=== PATIENT | male | born 1970 ===

== ENCOUNTER 2017-02-17 11:28 | Inpatient (IN) | payer MEDICAID ==
[2017-02-17 11:44] VITALS: BMI 26.6
[2017-02-17 12:51] LABS: BASO # 0.1 K/uL (0.0-0.2); BASO % 0.5 % (0.0-2.0); EOS # 0.1 K/uL (0.0-0.7); EOS % 0.7 % (0.0-4.0); LYMPH % 7.1 % (20.0-40.0); MEAN CELL VOLUME 87.9 fL (80.0-94.0); MEAN CORPUSCULAR HEMOGLOBIN 29.5 pg (27.0-31.0); MEAN CORPUSCULAR HGB CONC 33.5 g/dL (33.0-37.0); MEAN PLATELET VOLUME 7.7 fL (7.2-11.7); MONO # 1.1 K/uL (0.0-0.8); MONO % 7.9 % (0.0-10.0); PLATELET COUNT 245 K/uL (130-400); RED CELL DISTRIBUTION WIDTH 14.9 % (11.5-14.5); WHITE BLOOD COUNT 14.5 K/uL (4.8-10.8)
--- NOTE | 2017-02-17 12:57 | RAD ---
PROCEDURE: CHEST RADIOGRAPH, 1 VIEW HISTORY: chest pain COMPARISON: Comparison made with radiograph of the chest dated 06/22/2016. FINDINGS: LUNGS: Mild right basilar atelectasis. Developing lower lobe infiltrate could be excluded followup radiographs. PLEURA: No pneumothorax or pleural fluid seen. CARDIOVASCULAR: Normal. OSSEOUS STRUCTURES: No significant abnormalities. VISUALIZED UPPER ABDOMEN: Normal. OTHER FINDINGS: None. IMPRESSION: Mild right basilar atelectasis. Developing infiltrate could be excluded with followup radiographs.
[2017-02-17 12:58] LABS: RBC URINE 2 /hpf (0-3); URINE BILIRUBIN NEGATIVE (NEGATIVE); URINE BLOOD NEGATIVE (NEGATIVE); URINE COLOR Yellow (YELLOW); URINE GLUCOSE (UA) 1+ mg/dL (Normal); URINE KETONE TRACE mg/dL (NEGATIVE); URINE LEUKOCYTE ESTERASE NEG Leu/uL (Negative); WBC URINE < 1 /hpf (0-5)
[2017-02-17 13:00] LABS: URINE PROTEIN 1+ mg/dL (NEGATIVE)
[2017-02-17 13:00] LABS: CHLORIDE 100 mmol/L (98-107)
[2017-02-17 13:01] LABS: POTASSIUM 3.8 mmol/L (3.6-5.2); SODIUM 140 mmol/L (132-148)
[2017-02-17 13:03] LABS: AST/SGOT 154 U/L (17-59); CARBON DIOXIDE 28 mmol/L (22-30); GFR AFRICAN-AMERICAN > 60
[2017-02-17 13:04] LABS: ALB/GLOB RATIO 1.1 (1.0-2.1); ALKALINE PHOSPHATASE 93 U/L (38-126); ALT/SGPT 197 U/L (21-72); BLOOD UREA NITROGEN 8 mg/dL (9-20); CALCIUM 8.5 mg/dl (8.6-10.4); GLUCOSE,RANDOM 155 mg/dL (75-110); TOTAL PROTEIN 7.3 g/dL (6.3-8.3)
[2017-02-17 13:12] LABS: NEUTROPHIL 81 % (50-75); TOTAL CELLS COUNTED 100
[2017-02-17] MEDS ORDERED: Iodixanol 320 MG/ML 100 ML BOTTLE IV ONE (13:49)
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
--- NOTE | 2017-02-17 13:57 | VASCLAB ---
PROCEDURE: Right Lower Extremity Venous Duplex Exam. HISTORY: r/o DVT Right lef edema, pain. PRIORS: None. TECHNIQUE: Right common femoral, femoral, popliteal and posterior tibial, peroneal and great saphenous veins were evaluated. Flow was assessed with color Doppler, compressibility, assessment of phasic flow and augmentation response. Report prepared by Samuel Martinez RVT FINDINGS: RIGHT: 1. Common Femoral Vein: 1.1. Compressibility - Fully compressible: Thrombus - None: Flow - Phasic: Augmentation -Normal: Reflux - . 2. Femoral Vein: 2.1. Compressibility - Fully compressible: Thrombus - None: Flow - Phasic: Augmentation -Normal: Reflux - . 3. Popliteal Vein: 3.1. Compressibility - Fully compressible: Thrombus - None: Flow - Phasic: Augmentation -Normal: Reflux - . 4. Posterior Tibial Vein: 4.1. Compressibility - Incompressible: Thrombus - Acute: Flow - : Augmentation -: Reflux - . 5. Peroneal Vein: 5.1. Compressibility - Fully compressible: Thrombus - None: Flow - : Augmentation -: Reflux - . 6. Great Saphenous Vein: 6.1. Compressibility - Fully compressible: Thrombus -None: Flow - : Augmentation - : Reflux - . OTHER FINDINGS: IMPRESSION: One of the posterior tibial veins around the mid calf areas was occluded with echolucent THROMBUS. There was evidence of infrapopliteal deep vein thrombosis of the right lower extremity. Normal venous flow noted in the left common femoral vein.
--- NOTE | 2017-02-17 14:54 | CT ---
PROCEDURE: CTA chest dated 02/17/2017. HISTORY: Shortness of breath and bilateral leg swelling . Rule out PE. COMPARISON: Comparison made with chest radiograph obtained earlier same day on 02/17/2017 TECHNIQUE: Technique: : CT angiography of the chest performed in standard fashion employing CTA protocol during arterial phase of enhancement following intravenous injection of approximately 100 cc of Visipaque 320 contrast. . . . Additional coronal and sagittal reformats/MIP images performed. Radiation dose: Total exam DLP = 530.77 mGy-cm. This CT exam was performed using one or more of the following dose reduction techniques: Automated exposure control, adjustment of the mA and/or kV according to patient size, and/or use of iterative reconstruction technique. Findings: The the visualized on pulmonary trunk, right and left main, lobar, segmental branches of the pulmonary arteries are relatively well opacified with no definitive filling defects seen to suggest acute central pulmonary embolus. . There does appear to be small filling defects within distal segmental and subsegmental branches of the right lower lobe pulmonary artery suggesting the small distal pulmonary emboli. Pulmonary trunk measures approximately 3.4 cm. Ascending thoracic aorta measures approximately 3.44 cm and descending thoracic aorta measures approximately 23.0 cm. . Heart size within range of normal. No significant pericardial effusion is identified. There are a few small nonspecific mediastinal lymph nodes, the largest in the subcarinal region measuring approximately 15 mm. No significant hilar adenopathy. The the trachea and mainstem bronchi are widely patent with no endoluminal- endobronchial masses. Small hiatal hernia with minimal wall thickening of the distal esophagus. The thyroid gland appears grossly unremarkable so far as can be seen. Multiple small nonspecific bilateral axillary lymph nodes are present. Evaluation of the lung parenchyma reveals vague atelectasis and or scarring changes in the medial aspect right middle lobe. There is linear scarring also seen along the anterior inferior surface of the right upper lobe. Multiple vaguely somewhat translucent nodular opacities scattered throughout the upper and and middle lobes noted as well nonspecific. Lung webb are otherwise clear. No effusion or pneumothorax. The liver exhibits moderate to fairly significant diffuse fatty hepatic infiltration. Remaining visualized upper abdominal structures unremarkable. Minor chronic appearing anterior stature loss at least 2 mid thoracic of segments. Minor multilevel degenerative spondylosis of the thoracic spine Impression: Findings suggesting small pulmonary emboli within distal segmental and subsegmental branches right lower lobe pulmonary artery. . There are multiple small vague nodular translucent opacity seen scattered throughout the right upper and middle lobes. Mild atelectasis and or scarring right middle lobe lies. There is also mild linear scarring inferior anterior aspect right upper lobe extending to the pleural surface. Moderate to significant fatty hepatic infiltration. Note these findings were discussed with Dr. Hong approximately 2:45 p.m. with written down and read back verification.
[2017-02-17] MEDS ORDERED: Azithromycin 500 MG in Sodium Chloride 0.9% 250 ML IVPB STA (14:59)
[2017-02-17] MEDS ORDERED: Enoxaparin 80 mg Syringe SC STA (15:07)
[2017-02-17] MEDS ORDERED: Azithromycin 500mg/250ML NS 250 ML IVPB ONE (15:29)
[2017-02-17] MEDS ORDERED: Enoxaparin 80 mg Syringe ONE (15:29)
[2017-02-17] MEDS ORDERED: cefTRIAXone IV 1 gm in Dextros 50 ML IVPB ONE (15:29)
[2017-02-17] MEDS ORDERED: Morphine 4 MG/ML VIAL ONE (15:42)
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
[2017-02-17] MEDS ORDERED: DiphenhydrAMINE 50 mg/ml Inj IVP STA (16:29)
[2017-02-17] MEDS ORDERED: DiphenhydrAMINE 50 mg/ml Inj ONE (16:34)
[2017-02-17 17:09] VITALS: RESP 20
--- NOTE | 2017-02-17 17:25 | CT ---
PROCEDURE: CT scan brain dated 02/17/2017. HISTORY: History of subdural hematoma. COMPARISON: Comparison made with prior CT scan of the brain dated 03/29/2016 and another dated 03/07/2015. TECHNIQUE: Axial computed tomography images were obtained through the head/brain without intravenous contrast. Radiation dose: Total exam DLP 854.9MGy-cm. This CT exam was performed using one or more of the following dose reduction techniques: Automated exposure control, adjustment of the mA and/or kV according to patient size, and/or use of iterative reconstruction technique. FINDINGS: HEMORRHAGE: Re- demonstrated is a the small hyperdense rounded focus in the right frontal subcortical white matter measuring approximately 5.7 5 mm. This focus may represent a small cavernous hemangioma. . Followup pre and post-contrast MRI of the brain recommended for confirmation. . There is curvilinear hyperdense subdural crescentic focus that most likely represents chronic subdural granulation tissue subjacent to a large craniectomy defect with overlying cranioplasty material in the right temporal parietal region/ cranioplasty. These changes are new since prior study. BRAIN: Suspect mild chronic periventricular white matter ischemic changes. . Focal area of encephalomalacia left posterior perisylvian region unchanged. . Moderate generalized volume loss. VENTRICLES: As mentioned above, there is generalized volume loss with ventricular enlargement however no evidence of obstructive hydrocephalus. CALVARIUM: There are no acute calvarial fractures. PARANASAL SINUSES: Mild mucosal thickening present within both maxillary antra left greater than right with mild to moderate mucosal thickening in the ethmoid air complex extending slightly into the inferior aspect of the frontal sinus. Minimal mucosal thickening sphenoid sinus. MASTOID AIR CELLS: Mastoid air complexes well-developed and currently well-aerated. OTHER FINDINGS: None. IMPRESSION: No acute intracranial hemorrhage. Large right temporal parietal craniectomy defect with cranioplasty material and subjacent subdural granulation tissue. Stable partially cystic encephalomalacia left posterior perisylvian region. Small hyperdense focus right frontal subcortical region consistent with a small cavernoma. Recommend pre and post-contrast MRI of the brain for confirmation.
[2017-02-17] MEDS: Albuterol-Ipratrop 3 mg / 0.5 (3 ml) UD INH SCH (20:39)
[2017-02-17 21:06] LABS: INR 1.1
[2017-02-18] MEDS: Albuterol-Ipratrop 3 mg / 0.5 (3 ml) UD INH SCH ×5 (01:48→19:37)
[2017-02-18 06:47] LABS: INR 1.1
[2017-02-18 06:53] LABS: CHLORIDE 95 mmol/L (98-107); POTASSIUM 2.9 mmol/L (3.6-5.2); SODIUM 134 mmol/L (132-148)
[2017-02-18 06:55] LABS: CHOLESTEROL 146 mg/dL (0-199); GFR AFRICAN-AMERICAN > 60
[2017-02-18 06:56] LABS: ALKALINE PHOSPHATASE 85 U/L (38-126); ALT/SGPT 141 U/L (21-72); AST/SGOT 79 U/L (17-59); BILIRUBIN,TOTAL 1.3 mg/dL (0.2-1.3); BLOOD UREA NITROGEN 8 mg/dL (9-20); CARBON DIOXIDE 30 mmol/L (22-30); GLUCOSE,RANDOM 108 mg/dL (75-110); TOTAL PROTEIN 6.8 g/dL (6.3-8.3)
[2017-02-18 07:10] LABS: BASO % 0.4 % (0.0-2.0); EOS # 0.2 K/uL (0.0-0.7); EOS % 1.6 % (0.0-4.0); HEMATOCRIT 40.4 % (35.0-51.0); LYMPH # 1.2 K/uL (1.0-4.3); LYMPH % 10.4 % (20.0-40.0); MEAN CELL VOLUME 87.7 fL (80.0-94.0); MEAN CORPUSCULAR HEMOGLOBIN 29.1 pg (27.0-31.0); MEAN CORPUSCULAR HGB CONC 33.2 g/dL (33.0-37.0); MONO # 0.9 K/uL (0.0-0.8); MONO % 7.7 % (0.0-10.0); RED CELL DISTRIBUTION WIDTH 14.6 % (11.5-14.5); T4 6.61 ug/dL (5.5-11.0); WHITE BLOOD COUNT 11.2 K/uL (4.8-10.8)
[2017-02-18 07:24] LABS: THYROID STIMULATING HORMONE 0.77 mIU/L (0.46-4.68)
--- NOTE | 2017-02-18 08:42 | CP.PCM.PN ---
<Sekou Partida - Last Filed: 02/18/17 11:30> Subjective - Date & Time of Evaluation Date of Evaluation: 02/18/17 Time of Evaluation: 08:50 - Subjective Subjective: Medicine Note- Hospitalist Service Patient was seen and examined at bedside. Patient currently reports that he still has some chest pain, bilaterally, lower chest. He also states he has some pain behind his right knee. He says he has difficulty breathing without the nasal cannula. No events overnight per nursing. Objective - Vital Signs/Intake and Output Vital Signs (last 24 hours): Temp Pulse Resp BP Pulse Ox 98.2 F 78 20 109/71 98 02/18/17 07:00 02/18/17 08:00 02/18/17 07:00 02/18/17 07:00 02/18/17 07:00 Intake and Output: 02/18/17 02/18/17 06:59 18:59 Intake Total 210 Output Total 950 Balance -740 - Medications Medications: Current Medications Albuterol/Ipratropium (Duoneb 3 Mg/0.5 Mg (3 Ml) Ud) 3 ml INH RQ6 [facility] Last Admin: 02/18/17 08:02 Dose: 3 ml Citalopram Hydrobromide (Celexa) 40 mg PO DAILY [facility] Enoxaparin Sodium (Lovenox) 80 mg SC Q12 [facility] Azithromycin 500 mg/ Sodium (Chloride) 250 mls @ 250 mls/hr IVPB DAILY [facility] Ceftriaxone Sodium 1 gm/ (Sodium Chloride) 100 mls @ 100 mls/hr IVPB Q12H [facility] Last Admin: 02/18/17 03:16 Dose: 100 mls/hr Morphine Sulfate (Morphine) 2 mg IVP Q4H PRN PRN Reason: Pain, moderate (4-7) Ondansetron HCl (Zofran Inj) 4 mg IVP Q6 PRN PRN Reason: Nausea/Vomiting Pantoprazole Sodium (Protonix Ec Tab) 40 mg PO DAILY [facility] Pneumococcal Polyvalent Vaccine (Pneumovax 23 Vaccine) 0.5 ml IM .ONCE ONE Stop: 02/18/17 10:01 Risperidone (Risperdal Tab) 3 mg PO HS [facility] Last Admin: 02/17/17 21:43 Dose: 3 mg - Labs Labs: 02/18/17 06:28 02/18/17 06:28 PT 12.1 SECONDS (9.7-12.2) 02/18/17 06:28 INR 1.1 02/18/17 06:28 APTT 28 SECONDS (21-34) D 02/18/17 06:28 - Constitutional Appears: Non-toxic, No Acute Distress - Head Exam Head Exam: ATRAUMATIC, NORMAL INSPECTION, NORMOCEPHALIC - Eye Exam Eye Exam: Normal appearance Pupil Exam: NORMAL ACCOMODATION, PERRL - ENT Exam ENT Exam: Mucous Membranes Moist - Respiratory Exam Respiratory Exam: Clear to Ausculation Bilateral, NORMAL BREATHING PATTERN. absent: Prolonged Expiratory Phase, Rales, Rhonchi, Wheezes - Cardiovascular Exam Cardiovascular Exam: REGULAR RHYTHM, +S1, +S2 - GI/Abdominal Exam GI & Abdominal Exam: Soft, Normal Bowel Sounds. absent: Tenderness, Diminished Bowel Sounds, Hypoactive Bowel Sounds - Neurological Exam Neurological Exam: Alert, Awake, Oriented x3 - Psychiatric Exam Psychiatric exam: Normal Affect, Normal Mood - Skin Skin Exam: Dry, Intact, Normal Color, Warm Assessment and Plan - Assessment and Plan (Free Text) Assessment: 1. Chest pain Admit to telemetry PE and Atelectasis vs Pneumonia Heme/Onc consult, Dr. Bruner, help appreciated Pulm consult, Dr. Coleman, help appreciated EKG: NSR @ 88 bpm LE doppler: posterior tibial vein occludded with echolucent thrombus. Evidence of infrapopliteal DVT in R lower extremity (see full report) CT Head- 02/18/17- No acute intracranial hemorrhage. Large right temporal parietal craniectomy defect with cranioplasty. Stable partially cystic encephalomalacia left posterior perisylvian region. Small hyperdense focus right frontal subcortical region consistent with a small cavernoma. CT Chest angio: suggesting small pulmonary emboli within distal segmental and subsegmental branches of RLL and RML pulmonary artery (see full report). Rocephin 1 gm IVPB Q12H Azithromycin 500 mg IVPB daily Morphine 2 mg IVP Q4H PRN PT/PTT normal Lipid Panel normal TSH, T4 normal HgbA1C pending 2. Dyspnea PE and Atelectasis vs Pneumonia EKG: NSR @ 88 bpm WBC- 11.2 Rocephin 1 gm IVPB Q12H Azithromycin 500 mg IVPB daily Duonebs 3 mL INH RQ6 Continue Lovenox 80mg SC Q12h LE doppler: posterior tibial vein occludded with echolucent thrombus. Evidence of infrapopliteal DVT in R lower extremity (see full report) CT Chest angio: suggesting small pulmonary emboli within distal segmental and subsegmental branches of RLL and RML pulmonary artery (see full report). CT Head- 02/18/17- No acute intracranial hemorrhage. Large right temporal parietal craniectomy defect with cranioplasty. Stable partially cystic encephalomalacia left posterior perisylvian region. Small hyperdense focus right frontal subcortical region consistent with a small cavernoma. Heme/Onc consult, Dr. Bruner, help appreciated Pulm consult, Dr. Coleman, help appreciated 3. History of Subdural hematoma CT Head- 02/18/17- No acute intracranial hemorrhage. Large right temporal parietal craniectomy defect with cranioplasty. Stable partially cystic encephalomalacia left posterior perisylvian region. Small hyperdense focus right frontal subcortical region consistent with a small cavernoma. 4. Asthma Duonebs 3 mL INH RQ6 5. Schizoaffective disorder Celexa 40 mg PO daily Risperidal 3 mg PO HS 6. DVT LE doppler: posterior tibial vein occludded with echolucent thrombus. Evidence of infrapopliteal DVT in R lower extremity (see full report) Continue Lovenox 80mg SC Q12h 7. Transaminitis AST/ALT trending down- 79/141 8. Prophylactic Measures Lovenox 80mg SC Q12h GI:Protonix 40 mg PO daily Zofran 4 mg IVP Q6H PRN <Maxx Aceves M - Last Filed: 02/18/17 15:27> Objective - Vital Signs/Intake and Output Vital Signs (last 24 hours): Temp Pulse Resp BP Pulse Ox 98.2 F 78 20 109/71 98 02/18/17 07:00 02/18/17 08:00 02/18/17 07:00 02/18/17 07:00 02/18/17 07:00 Intake and Output: 02/18/17 02/18/17 06:59 18:59 Intake Total 210 600 Output Total 950 Balance -740 600 - Medications Medications: Current Medications Albuterol/Ipratropium (Duoneb 3 Mg/0.5 Mg (3 Ml) Ud) 3 ml INH RQ6 [facility] Last Admin: 02/18/17 13:49 Dose: 3 ml Citalopram Hydrobromide (Celexa) 40 mg PO DAILY [facility] Last Admin: 02/18/17 09:51 Dose: 40 mg Enoxaparin Sodium (Lovenox) 80 mg SC Q12 [facility] Last Admin: 02/18/17 09:49 Dose: 80 mg Azithromycin 500 mg/ Sodium (Chloride) 250 mls @ 250 mls/hr IVPB DAILY [facility] Last Admin: 02/18/17 09:50 Dose: 250 mls/hr Ceftriaxone Sodium 1 gm/ (Sodium Chloride) 100 mls @ 100 mls/hr IVPB Q12H [facility] Last Admin: 02/18/17 14:04 Dose: 100 mls/hr Morphine Sulfate (Morphine) 2 mg IVP Q4H PRN PRN Reason: Pain, moderate (4-7) Last Admin: 02/18/17 08:38 Dose: 2 mg Ondansetron HCl (Zofran Inj) 4 mg IVP Q6 PRN PRN Reason: Nausea/Vomiting Pantoprazole Sodium (Protonix Ec Tab) 40 mg PO DAILY [facility] Last Admin: 02/18/17 09:51 Dose: 40 mg Risperidone (Risperdal Tab) 3 mg PO HS [facility] Last Admin: 02/17/17 21:43 Dose: 3 mg - Labs Labs: 02/18/17 06:28 02/18/17 06:28 PT 12.1 SECONDS (9.7-12.2) 02/18/17 06:28 INR 1.1 02/18/17 06:28 APTT 28 SECONDS (21-34) D 02/18/17 06:28 Attending/Attestation - Attestation I have personally seen and examined this patient.: Yes I have fully participated in the care of the patient.: Yes I have reviewed all pertinent clinical information, including history, physical exam and plan: Yes Notes (Text): 02/18/17 15:27 Patient was seen and examined at bedside today Patient stated that he is feeling better next is still complains of some chest pain. We will continue therapeutic anticoagulation with Lovenox Hematology evaluation pending Continue treatment for pneumonia with IV antibiotics Pulmonary evaluation in progress I agree with the above history and physical and assessment/plan but the resident
[2017-02-18] MEDS ORDERED: Potassium Chloride 20 mEq ER Tab PO ONE ×2 (08:57→14:00)
[2017-02-18 09:26] LABS: MAGNESIUM 1.3 mg/dL (1.6-2.3); PHOSPHOROUS 3.4 mg/dL (2.5-4.5)
[2017-02-18] MEDS: Enoxaparin 80 mg Syringe SC SCH ×2 (09:49→21:55)
[2017-02-18] MEDS: Azithromycin 500 MG in Sodium Chloride 0.9% 250 ML IVPB SCH (09:50)
[2017-02-18] MEDS: Pantoprazole 40 mg EC Tab PO SCH (09:51)
[2017-02-18] MEDS ORDERED: Pneumococcal 23-Valent Vaccine IM ONE (10:00)
--- NOTE | 2017-02-18 17:20 | CP.PCM.CON ---
History of Present Illness - History of Present Illness History of Present Illness: Hematology Consult Referred by Dr. Aceves for acute DVT/PE HPI- Mr Clark is 46 y/o M with h/o bipolar disorder, schizoaffective disorder, depression, alcohol abuse, smoker (around 10 cigs/day), asthma/ bronchitis, traumatic subdural hematoma in 2016 requiring craniotomy and subsequent revision. He was admitted with 1 week history of right leg pain and swelling and chest pain with associated shortness of breath and cough. US doppler showed acute DVT in right posterior tibial vein. CT chest angiogram also showed small PE in subsegmental branches of right lower lobe pulmonary artery. It also showed some scarring in lungs and vague transluscent, nodular opacities in b/l upper and middle lobes (non specific). He was started on anticoagulation with therapeutic Lovenox. He does not recall any specific event triggering this, though he is not one of the best historians. He denies any recent travel, hospitalization or prolonged immbolization. No h/o OTC supplements. Review of his blood work showed slight leucocytosis on admission that is improving. His liver enzymes were elevated on admission (coming down now). CT chest showed fatty liver. His leg swelling has improved now, though he still gets occasional chest pain. Denies any bleeding. His appetite has been good and weight is stable. Denies nausea, abdominal pain or blood in stools. Review of Systems - Review of Systems All systems: reviewed and no additional remarkable complaints except Review of Systems: as listed in HPI Past Patient History - Infectious Disease Hx of Infectious Diseases: None - Past Medical History & Family History Past Medical History?: Yes - Past Social History Smoking Status: Light Smoker < 10 Cigarettes Daily - CARDIAC Hx Hypertension: Yes - PULMONARY Hx Asthma: Yes - NEUROLOGICAL Hx Alzheimer's Disease: No Hx Seizures: No - HEENT Hx HEENT Problems: Yes - RENAL Hx Chronic Kidney Disease: No - ENDOCRINE/METABOLIC Hx Endocrine Disorders: No - HEMATOLOGICAL/ONCOLOGICAL Hx Blood Disorders: No Hx Human Immunodeficiency Virus (HIV): No - INTEGUMENTARY Hx Dermatological Problems: No - MUSCULOSKELETAL/RHEUMATOLOGICAL Hx Fractures: Yes - GASTROINTESTINAL Hx Gastrointestinal Disorders: No - GENITOURINARY/GYNECOLOGICAL Hx Genitourinary Disorders: No Hx Sexually Transmitted Disorders: No - PSYCHIATRIC Hx Bipolar Disorder: Yes Hx Depression: Yes Hx Schizophrenia: Yes Hx Substance Use: Yes - SURGICAL HISTORY Hx Surgeries: Yes Hx Orthopedic Surgery: Yes (left arm) Other/Comment: nose surgery - ANESTHESIA Hx Anesthesia: Yes Hx Anesthesia Reactions: No Meds Allergies/Adverse Reactions: Allergies Allergy/AdvReac Type Severity Reaction Status Date / Time No Known Allergies Allergy Verified 06/20/16 20:10 - Medications Medications: Current Medications Albuterol/Ipratropium (Duoneb 3 Mg/0.5 Mg (3 Ml) Ud) 3 ml INH RQ6 [facility] Last Admin: 02/18/17 13:49 Dose: 3 ml Citalopram Hydrobromide (Celexa) 40 mg PO DAILY [facility] Last Admin: 02/18/17 09:51 Dose: 40 mg Enoxaparin Sodium (Lovenox) 80 mg SC Q12 [facility] Last Admin: 02/18/17 09:49 Dose: 80 mg Azithromycin 500 mg/ Sodium (Chloride) 250 mls @ 250 mls/hr IVPB DAILY [facility] Last Admin: 02/18/17 09:50 Dose: 250 mls/hr Ceftriaxone Sodium 1 gm/ (Sodium Chloride) 100 mls @ 100 mls/hr IVPB Q12H [facility] Last Admin: 02/18/17 14:04 Dose: 100 mls/hr Morphine Sulfate (Morphine) 2 mg IVP Q4H PRN PRN Reason: Pain, moderate (4-7) Last Admin: 02/18/17 08:38 Dose: 2 mg Ondansetron HCl (Zofran Inj) 4 mg IVP Q6 PRN PRN Reason: Nausea/Vomiting Pantoprazole Sodium (Protonix Ec Tab) 40 mg PO DAILY [facility] Last Admin: 02/18/17 09:51 Dose: 40 mg Risperidone (Risperdal Tab) 3 mg PO HS [facility] Last Admin: 02/17/17 21:43 Dose: 3 mg Physical Exam - Head Exam Head Exam: ATRAUMATIC, NORMAL INSPECTION - Eye Exam Eye Exam: EOMI, PERRL - ENT Exam ENT Exam: Mucous Membranes Moist - Respiratory Exam Respiratory Exam: Clear to Auscultation Bilateral - Cardiovascular Exam Cardiovascular Exam: REGULAR RHYTHM - GI/Abdominal Exam GI & Abdominal Exam: Normal Bowel Sounds, Soft. absent: Organomegaly, Tenderness - Extremities Exam Extremities exam: Negative for: pedal edema Additional comments: right inner thigh- skin discoloration Results - Vital Signs Recent Vital Signs: Last Vital Signs Temp 98.2 F 02/18/17 07:00 Pulse 78 02/18/17 08:00 Resp 20 02/18/17 07:00 BP 109/71 02/18/17 07:00 Pulse Ox 98 02/18/17 07:00 - Labs Result Diagrams: 02/18/17 06:28 02/18/17 06:28 Labs: Laboratory Results - last 24 hr 02/17/17 02/18/17 02/18/17 20:37 06:28 09:04 WBC 11.2 H RBC 4.61 Hgb 13.4 Hct 40.4 MCV 87.7 MCH 29.1 MCHC 33.2 RDW 14.6 H Plt Count 206 MPV 8.0 Neut % (Auto) 79.9 H Lymph % (Auto) 10.4 L Bland % (Auto) 7.7 Eos % (Auto) 1.6 Baso % (Auto) 0.4 Neut # 9.0 H Lymph # 1.2 Bland # 0.9 H Eos # 0.2 Baso # 0.0 PT 12.2 12.1 INR 1.1 1.1 APTT 35 H 28 D Sodium 134 Potassium 2.9 L Chloride 95 L Carbon Dioxide 30 Anion Gap 12 BUN 8 L Creatinine 0.8 Est GFR ( Amer) > 60 Est GFR (Non-Af Amer) > 60 Random Glucose 108 Calcium 8.0 L Phosphorus 3.4 Magnesium 1.3 L Total Bilirubin 1.3 AST 79 H D ALT 141 H D Alkaline Phosphatase 85 Total Protein 6.8 Albumin 3.4 L Globulin 3.3 Albumin/Globulin Ratio 1.0 Triglycerides 103 Cholesterol 146 LDL Cholesterol Direct 60 HDL Cholesterol 49 Thyroxine (T4) 6.61 TSH 3rd Generation 0.77 Assessment & Plan - Assessment and Plan (Free Text) Assessment: Likely unprovoked acute DVT/PE His risk factors include smoking and possible repeat hospitalizations. We should do a hypercoagulable work up on him (in the absence of any specific triggers). Some the tests, however, can be affected by acute DVT and anticoagulation (e.g. Prot C, S, AT-III etc) and will be checked later on. Also, he should continue in future with age appropriate cancer screening. Continue Lovenox 1 mg/kg BID dose for now. Once clinically stable, he can be transitioned to an oral anticoagulant. Though , his management on oral anticoagulants in future might be difficult if he has any compliance issues. He could be discharged on Eliquis 10 mg PO BID x 7 days and he should see me in office within a week of discharge. Will send Factor V leiden, Prothrombin gene mutation and antiphospholipid antibody now. Thank you for the consult Hector Bruner MD - Date & Time Date: 02/18/17 Time: 17:20
[2017-02-19] MEDS: Albuterol-Ipratrop 3 mg / 0.5 (3 ml) UD INH SCH ×4 (01:29→21:00)
[2017-02-19 07:41] LABS: BASO # 0.1 K/uL (0.0-0.2); BASO % 0.5 % (0.0-2.0); EOS # 0.3 K/uL (0.0-0.7); EOS % 2.9 % (0.0-4.0); HEMATOCRIT 38.4 % (35.0-51.0); LYMPH # 1.3 K/uL (1.0-4.3); LYMPH % 12.6 % (20.0-40.0); MEAN CELL VOLUME 87.9 fL (80.0-94.0); MEAN CORPUSCULAR HEMOGLOBIN 29.4 pg (27.0-31.0); MEAN CORPUSCULAR HGB CONC 33.4 g/dL (33.0-37.0); MEAN PLATELET VOLUME 7.7 fL (7.2-11.7); MONO % 9.7 % (0.0-10.0); RED CELL DISTRIBUTION WIDTH 14.5 % (11.5-14.5); WHITE BLOOD COUNT 10.2 K/uL (4.8-10.8)
[2017-02-19 08:35] LABS: CHLORIDE 101 mmol/L (98-107); POTASSIUM 3.4 mmol/L (3.6-5.2); SODIUM 138 mmol/L (132-148)
[2017-02-19 08:37] LABS: BILIRUBIN,TOTAL 0.8 mg/dL (0.2-1.3); GFR AFRICAN-AMERICAN > 60
[2017-02-19 08:38] LABS: ALKALINE PHOSPHATASE 76 U/L (38-126); ALT/SGPT 107 U/L (21-72); AST/SGOT 63 U/L (17-59); BLOOD UREA NITROGEN 12 mg/dL (9-20); CALCIUM 7.9 mg/dl (8.6-10.4); CARBON DIOXIDE 27 mmol/L (22-30); GLUCOSE,RANDOM 95 mg/dL (75-110); PHOSPHOROUS 3.9 mg/dL (2.5-4.5); TOTAL PROTEIN 6.6 g/dL (6.3-8.3)
[2017-02-19 08:39] LABS: MAGNESIUM 1.9 mg/dL (1.6-2.3)
--- NOTE | 2017-02-19 08:56 | CP.PCM.PN ---
<Amy Muro I - Last Filed: 02/19/17 09:15> Subjective - Date & Time of Evaluation Date of Evaluation: 02/19/17 Time of Evaluation: 08:30 - Subjective Subjective: PGY3 on Medicine Service Patient seen and examined at bedside. Complains of pain in his chest with taking a deep breath, occasional palpitationsand right leg pain. Also complains of diarrhea for the last 3 days. No other complaints. Denies fevers, chills, nausea, vomiting, abdominal pain or dizziness. Objective - Vital Signs/Intake and Output Vital Signs (last 24 hours): Temp Pulse Resp BP Pulse Ox 99.0 F 104 H 20 114/90 99 02/19/17 08:23 02/19/17 08:23 02/19/17 08:23 02/19/17 08:23 02/19/17 08:23 Intake and Output: 02/19/17 02/19/17 06:59 18:59 Intake Total 940 Balance 940 - Medications Medications: Current Medications Albuterol/Ipratropium (Duoneb 3 Mg/0.5 Mg (3 Ml) Ud) 3 ml INH RQ6 [facility] Last Admin: 02/19/17 07:59 Dose: 3 ml Citalopram Hydrobromide (Celexa) 40 mg PO DAILY [facility] Last Admin: 02/18/17 09:51 Dose: 40 mg Enoxaparin Sodium (Lovenox) 80 mg SC Q12 [facility] Last Admin: 02/18/17 21:55 Dose: 80 mg Azithromycin 500 mg/ Sodium (Chloride) 250 mls @ 250 mls/hr IVPB DAILY [facility] Last Admin: 02/18/17 09:50 Dose: 250 mls/hr Ceftriaxone Sodium 1 gm/ (Sodium Chloride) 100 mls @ 100 mls/hr IVPB Q12H [facility] Last Admin: 02/19/17 02:41 Dose: 100 mls/hr Morphine Sulfate (Morphine) 2 mg IVP Q4H PRN PRN Reason: Pain, moderate (4-7) Last Admin: 02/19/17 05:30 Dose: 2 mg Ondansetron HCl (Zofran Inj) 4 mg IVP Q6 PRN PRN Reason: Nausea/Vomiting Pantoprazole Sodium (Protonix Ec Tab) 40 mg PO DAILY [facility] Last Admin: 02/18/17 09:51 Dose: 40 mg Potassium Chloride (K-Dur 20 Meq Er Tab) 40 meq PO ONCE ONE Stop: 02/19/17 09:01 Risperidone (Risperdal Tab) 3 mg PO HS [facility] Last Admin: 02/18/17 22:09 Dose: 3 mg - Labs Labs: 02/19/17 07:27 02/19/17 07:27 PT 12.1 SECONDS (9.7-12.2) 02/18/17 06:28 INR 1.1 02/18/17 06:28 APTT 28 SECONDS (21-34) D 02/18/17 06:28 - Constitutional Appears: Non-toxic, No Acute Distress - Head Exam Head Exam: ATRAUMATIC, NORMAL INSPECTION, NORMOCEPHALIC - Eye Exam Eye Exam: Normal appearance - ENT Exam ENT Exam: Mucous Membranes Moist - Respiratory Exam Respiratory Exam: Clear to Ausculation Bilateral, NORMAL BREATHING PATTERN - Cardiovascular Exam Cardiovascular Exam: Tachycardia, REGULAR RHYTHM - GI/Abdominal Exam GI & Abdominal Exam: Soft, Normal Bowel Sounds. absent: Distended, Tenderness - Extremities Exam Extremities Exam: Normal Inspection, Pedal Edema (trace in RLE) - Neurological Exam Neurological Exam: Alert, Oriented x3 - Psychiatric Exam Psychiatric exam: Normal Affect, Normal Mood - Skin Skin Exam: Dry, Normal Color, Warm Assessment and Plan - Assessment and Plan (Free Text) Assessment: 1. Chest pain LE doppler: posterior tibial vein occludded with echolucent thrombus. Evidence of infrapopliteal DVT in R lower extremity (see full report) CT Head- 02/18/17- No acute intracranial hemorrhage. Large right temporal parietal craniectomy defect with cranioplasty. Stable partially cystic encephalomalacia left posterior perisylvian region. Small hyperdense focus right frontal subcortical region consistent with a small cavernoma. CT Chest angio: suggesting small pulmonary emboli within distal segmental and subsegmental branches of RLL and RML pulmonary artery (see full report). Heme/Onc consult, Dr. Bruner, help appreciated- follow up recommendations Pulm consult, Dr. Coleman, help appreciated Rocephin 1 gm IVPB Q12H Azithromycin 500 mg IVPB daily Morphine 2 mg IVP Q4H PRN PT/PTT normal Lipid Panel normal TSH, T4 normal HgbA1C never done 2. Dyspnea WBC- 10 Continue Rocephin 1 gm IVPB Q12H and Azithromycin 500 mg IVPB daily Duonebs 3 mL INH RQ6 Continue Lovenox 80mg SC Q12h LE doppler: posterior tibial vein occludded with echolucent thrombus. Evidence of infrapopliteal DVT in R lower extremity (see full report) CT Chest angio: suggesting small pulmonary emboli within distal segmental and subsegmental branches of RLL and RML pulmonary artery (see full report). CT Head- 02/18/17- No acute intracranial hemorrhage. Large right temporal parietal craniectomy defect with cranioplasty. Stable partially cystic encephalomalacia left posterior perisylvian region. Small hyperdense focus right frontal subcortical region consistent with a small cavernoma. Heme/Onc consult, Dr. Bruner, help appreciated Pulm consult, Dr. Coleman, help appreciated 3. History of Subdural hematoma CT Head- 02/18/17- No acute intracranial hemorrhage. Large right temporal parietal craniectomy defect with cranioplasty. Stable partially cystic encephalomalacia left posterior perisylvian region. Small hyperdense focus right frontal subcortical region consistent with a small cavernoma. 4. Asthma Duonebs 3 mL INH RQ6 5. Schizoaffective disorder Celexa 40 mg PO daily Risperidal 3 mg PO HS 6. DVT LE doppler: posterior tibial vein occludded with echolucent thrombus. Evidence of infrapopliteal DVT in R lower extremity (see full report) Continue Lovenox 80mg SC Q12h 7. Transaminitis AST/ALT trending down- 63/107 8. Diarrhea Rule out C Diff, order stool studies 9. Hypokalemia 3.4 Replete Recheck in AM 10. Prophylactic Measures Lovenox 80mg SC Q12h GI:Protonix 40 mg PO daily Zofran 4 mg IVP Q6H PRN <Maxx Aceves M - Last Filed: 02/19/17 12:04> Objective - Vital Signs/Intake and Output Vital Signs (last 24 hours): Temp Pulse Resp BP Pulse Ox 99.0 F 99 H 20 114/90 99 02/19/17 08:23 02/19/17 08:54 02/19/17 08:23 02/19/17 08:23 02/19/17 08:23 Intake and Output: 02/19/17 02/19/17 06:59 18:59 Intake Total 940 Balance 940 - Medications Medications: Current Medications Albuterol/Ipratropium (Duoneb 3 Mg/0.5 Mg (3 Ml) Ud) 3 ml INH RQ6 [facility] Last Admin: 02/19/17 07:59 Dose: 3 ml Citalopram Hydrobromide (Celexa) 40 mg PO DAILY [facility] Last Admin: 02/19/17 10:16 Dose: 40 mg Enoxaparin Sodium (Lovenox) 80 mg SC Q12 [facility] Last Admin: 02/19/17 10:16 Dose: 80 mg Azithromycin 500 mg/ Sodium (Chloride) 250 mls @ 250 mls/hr IVPB DAILY [facility] Last Admin: 02/19/17 10:24 Dose: 250 mls/hr Ceftriaxone Sodium 1 gm/ (Sodium Chloride) 100 mls @ 100 mls/hr IVPB Q12H [facility] Last Admin: 02/19/17 02:41 Dose: 100 mls/hr Morphine Sulfate (Morphine) 2 mg IVP Q4H PRN PRN Reason: Pain, moderate (4-7) Last Admin: 02/19/17 05:30 Dose: 2 mg Ondansetron HCl (Zofran Inj) 4 mg IVP Q6 PRN PRN Reason: Nausea/Vomiting Pantoprazole Sodium (Protonix Ec Tab) 40 mg PO DAILY [facility] Last Admin: 02/19/17 10:16 Dose: 40 mg Risperidone (Risperdal Tab) 3 mg PO HS [facility] Last Admin: 02/18/17 22:09 Dose: 3 mg - Labs Labs: 02/19/17 07:27 02/19/17 07:27 PT 12.1 SECONDS (9.7-12.2) 02/18/17 06:28 INR 1.1 02/18/17 06:28 APTT 28 SECONDS (21-34) D 02/18/17 06:28 Attending/Attestation - Attestation I have personally seen and examined this patient.: Yes I have fully participated in the care of the patient.: Yes I have reviewed all pertinent clinical information, including history, physical exam and plan: Yes Notes (Text): 02/19/17 12:02 Patient was seen and examined at bedside Family is present at bedside Patient still complains of chest pain but states that it is significantly improved since admission Hematology/oncology evaluation seen in appreciated We will continue anticoagulation with Lovenox Plan is for discharge on Eliquis 10 mg twice a day for 7 days and then 5 mg twice a day. Continue IV antibiotics for pneumonia. Patient is on azithromycin and Rocephin. Discussed the plan of care with the resident and I agree with the above history and physical and assessment/plan by the resident.
[2017-02-19] MEDS ORDERED: Potassium Chloride 20 mEq ER Tab PO ONE ×2 (09:00)
[2017-02-19] MEDS: Enoxaparin 80 mg Syringe SC SCH ×2 (10:16→21:54)
[2017-02-19] MEDS: Pantoprazole 40 mg EC Tab PO SCH (10:16)
[2017-02-19] MEDS: Azithromycin 500 MG in Sodium Chloride 0.9% 250 ML IVPB SCH (10:24)
[2017-02-20] MEDS: Albuterol-Ipratrop 3 mg / 0.5 (3 ml) UD INH SCH ×4 (00:59→19:58)
[2017-02-20 06:27] LABS: BASO % 0.3 % (0.0-2.0); EOS # 0.1 K/uL (0.0-0.7); EOS % 0.5 % (0.0-4.0); HEMATOCRIT 37.9 % (35.0-51.0); LYMPH % 9.4 % (20.0-40.0); MEAN CELL VOLUME 88.3 fL (80.0-94.0); MEAN CORPUSCULAR HEMOGLOBIN 29.3 pg (27.0-31.0); MEAN CORPUSCULAR HGB CONC 33.1 g/dL (33.0-37.0); MEAN PLATELET VOLUME 7.7 fL (7.2-11.7); MONO # 0.8 K/uL (0.0-0.8); MONO % 7.6 % (0.0-10.0); PLATELET COUNT 242 K/uL (130-400); RED CELL DISTRIBUTION WIDTH 14.6 % (11.5-14.5)
[2017-02-20 06:46] LABS: CHLORIDE 100 mmol/L (98-107); POTASSIUM 3.5 mmol/L (3.6-5.2); SODIUM 137 mmol/L (132-148)
[2017-02-20 06:48] LABS: ALB/GLOB RATIO 1.1 (1.0-2.1); ALKALINE PHOSPHATASE 104 U/L (38-126); ALT/SGPT 157 U/L (21-72); AST/SGOT 145 U/L (17-59); BILIRUBIN,TOTAL 1.1 mg/dL (0.2-1.3); BLOOD UREA NITROGEN 9 mg/dL (9-20); CARBON DIOXIDE 28 mmol/L (22-30); GFR AFRICAN-AMERICAN > 60; TOTAL PROTEIN 6.7 g/dL (6.3-8.3)
[2017-02-20 06:49] LABS: CALCIUM 8.1 mg/dl (8.6-10.4); GLUCOSE,RANDOM 126 mg/dL (75-110); MAGNESIUM 1.6 mg/dL (1.6-2.3); PHOSPHOROUS 4.3 mg/dL (2.5-4.5)
--- NOTE | 2017-02-20 07:13 | CON ---
DATE: 02/18/2017 A 46-year-old male in the hospital with chief complaint of weakness, fatigued, tiredness. The patien t came to the hospital, advised admission. The patient is found to have pneumonia. PHYSICAL EXAMINATION: GENERAL: The patient is awake, alert, oriented, . VITAL SIGNS: Temperature 99, pulse 90. HEENT: Within normal limits. NECK: Supple. CHEST: Symmetrical. HEART: Regular. ABDOMEN: Soft. EXTREMITIES: No edema. The patient suffers from pneumonia. The patient will get bedrest, IV antibiotics, supportive care. Barron Pascual MD cc: [id number] TT: 02/19/2017 08:57:11 Confirmation # [id number] Dictation # [id number]
[2017-02-20 09:54] LABS: EOSINOPHIL 1 % (0-4); MYELOCYTE 1 % (0-0); NEUTROPHIL 82 % (50-75); TOTAL CELLS COUNTED 100
[2017-02-20] MEDS: Potassium Chloride 20 mEq ER Tab PO SCH (10:29)
[2017-02-20] MEDS: Pantoprazole 40 mg EC Tab PO SCH (10:30)
[2017-02-20] MEDS: Azithromycin 500 MG in Sodium Chloride 0.9% 250 ML IVPB SCH ×3 (10:30→14:51)
[2017-02-20] MEDS: Enoxaparin 80 mg Syringe SC SCH ×2 (10:30→22:04)
--- NOTE | 2017-02-20 10:53 | CARD ---
APPROVED REPORT EXAM: Two-dimensional and M-mode echocardiogram with Doppler and color Doppler. Other Information Quality : GoodRhythm : NSR INDICATION Pericardial Effusion Dyspnea Chest Pain alcohol abuse M-Mode DIMENSIONS RVDd1.21 (2.1-3.2cm)Left Atrium (MM)3.98 (2.5-4.0cm) IVSd1.18 (0.7-1.1cm)Aortic Root3.28 (2.2-3.7cm) LVDd4.86 (4.0-5.6cm)Aortic Cusp Exc.1.73 (1.5-2.0cm) PWd1.21 (0.7-1.1cm)FS (%) 31 % LVDs3.33 (2.0-3.8cm)LVEF (%)59 (>50%) Aortic Valve AoV Peak Ioxkvnwv505.1cm/[place] Peak GR.9mmHg Mitral Valve MV E Bbyggtjq320.5cm/sMV A Qiepnqqi879.3cm/sE/A ratio0.9 TDI E/Lateral E'0.0E/Medial E'0.0 Tricuspid Valve TR Peak Ijgxqzvl575ic/sTR Peak Gr.[id number] LEFT VENTRICLE The left ventricle is normal size. There is normal left ventricular wall thickness. The left ventricular function is normal. The left ventricular ejection fraction is within the normal range. The Ejection Fraction is >55%. No regional wall motion abnormalities noted. The left ventricular diastolic function is normal. No left ventricle thrombus noted on this study. There is no ventricular septal defect visualized. There is no left ventricular aneurysm. There is no mass noted in the left ventricle. RIGHT VENTRICLE The right ventricle is normal size. There is normal right ventricular wall thickness. The right ventricular systolic function is normal. ATRIA The left atrium size is normal. The right atrium size is normal. The interatrial septum is intact with no evidence for an atrial septal defect. AORTIC VALVE The aortic valve is normal in structure and function. There is trace to mild aortic regurgitation. There is no aortic valvular stenosis. There is no aortic valvular vegetation. MITRAL VALVE The mitral valve is normal in structure and function. There is no evidence of mitral valve prolapse. There is no mitral valve stenosis. Mitral regurgitation is mild to moderate. TRICUSPID VALVE The tricuspid valve is normal in structure and function. There is mild tricuspid regurgitation. There is no tricuspid valve prolapse or vegetation. There is no tricuspid valve stenosis. PULMONIC VALVE The pulmonary valve is normal in structure and function. There is no pulmonic valvular regurgitation. There is no pulmonic valvular stenosis. GREAT VESSELS The aortic root is normal in size. The ascending aorta is normal in size. The pulmonary artery is normal. The IVC is normal in size and collapses >50% with inspiration. PERICARDIAL EFFUSION There is a small circumferential pericardial effusion. There is no pleural effusion. <Conclusion> The left ventricular ejection fraction is within the normal range. The Ejection Fraction is >55%. The right ventricular systolic function is normal. There is a small circumferential pericardial effusion. There is trace to mild aortic regurgitation. Mitral regurgitation is mild to moderate.
--- NOTE | 2017-02-20 14:27 | CP.PCM.PN ---
<Casimiro Paredes - Last Filed: 02/20/17 14:34> Subjective - Date & Time of Evaluation Date of Evaluation: 02/20/17 Time of Evaluation: 08:00 - Subjective Subjective: PGY-1 Medicine Progress Note for Dr. Monique Patient seen and examined at bedside. No acute event overnight. Patient adamant about leaving today. Patient still complains of mild pain in his chest with inspiration and right leg pain. He has been experiencing diarrhea for the last few days. Dr. Bruner instructed patient to be discharged on eliquis 10 mg PO BID for one week and follow up wihtin 2-3 days of discharge as outpatient. Denies fevers/chills, nausea, vomiting, abdominal pain or dizziness. Objective - Vital Signs/Intake and Output Vital Signs (last 24 hours): Temp Pulse Resp BP Pulse Ox 97.9 F 120 H 20 151/98 H 95 02/20/17 09:08 02/20/17 09:08 02/20/17 09:08 02/20/17 09:08 02/19/17 23:40 Intake and Output: 02/20/17 02/20/17 06:59 18:59 Intake Total 460 Balance 460 - Medications Medications: Current Medications Albuterol/Ipratropium (Duoneb 3 Mg/0.5 Mg (3 Ml) Ud) 3 ml INH RQ6 [facility] Last Admin: 02/20/17 08:58 Dose: Not Given Citalopram Hydrobromide (Celexa) 40 mg PO DAILY [facility] Last Admin: 02/20/17 10:30 Dose: 40 mg Enoxaparin Sodium (Lovenox) 80 mg SC Q12 [facility] Last Admin: 02/20/17 10:30 Dose: 80 mg Azithromycin 500 mg/ Sodium (Chloride) 250 mls @ 250 mls/hr IVPB DAILY [facility] Last Admin: 02/20/17 10:30 Dose: Not Given Ceftriaxone Sodium 1 gm/ (Sodium Chloride) 100 mls @ 100 mls/hr IVPB Q12H [facility] Last Admin: 02/20/17 02:37 Dose: 100 mls/hr Morphine Sulfate (Morphine) 2 mg IVP Q4H PRN PRN Reason: Pain, moderate (4-7) Last Admin: 02/20/17 00:31 Dose: 2 mg Ondansetron HCl (Zofran Inj) 4 mg IVP Q6 PRN PRN Reason: Nausea/Vomiting Pantoprazole Sodium (Protonix Ec Tab) 40 mg PO DAILY [facility] Last Admin: 02/20/17 10:30 Dose: 40 mg Potassium Chloride (K-Dur 20 Meq Er Tab) 40 meq PO DAILY [facility] Last Admin: 02/20/17 10:29 Dose: 40 meq Risperidone (Risperdal Tab) 3 mg PO HS [facility] Last Admin: 02/20/17 02:37 Dose: 3 mg - Labs Labs: 02/20/17 06:11 02/20/17 06:11 PT 12.1 SECONDS (9.7-12.2) 02/18/17 06:28 INR 1.1 02/18/17 06:28 APTT 28 SECONDS (21-34) D 02/18/17 06:28 - Constitutional Appears: No Acute Distress - Head Exam Head Exam: ATRAUMATIC, NORMOCEPHALIC - Eye Exam Eye Exam: EOMI, Normal appearance Pupil Exam: PERRL - ENT Exam ENT Exam: Mucous Membranes Moist - Neck Exam Neck Exam: Normal Inspection - Respiratory Exam Respiratory Exam: Chest Wall Tenderness, NORMAL BREATHING PATTERN. absent: Accessory Muscle Use, Respiratory Distress - Cardiovascular Exam Cardiovascular Exam: Tachycardia, +S1, +S2 - GI/Abdominal Exam GI & Abdominal Exam: Soft, Normal Bowel Sounds. absent: Tenderness - Extremities Exam Extremities Exam: Normal Capillary Refill - Back Exam Back Exam: absent: CVA tenderness (L), CVA tenderness (R) - Neurological Exam Neurological Exam: Alert, Awake, CN II-XII Intact, Normal Gait, Oriented x3 - Psychiatric Exam Psychiatric exam: Normal Affect, Normal Mood - Skin Skin Exam: Dry, Intact, Normal Color, Warm Assessment and Plan - Assessment and Plan (Free Text) Plan: 1. Pulmonary Embolism and DVT Dr. Bruner instructed patient to be discharged on eliquis 10 mg PO BID for one week and follow up wihtin 2-3 days of discharge as outpatient LE doppler: posterior tibial vein occludded with echolucent thrombus. Evidence of infrapopliteal DVT in R lower extremity (see full report) CT Head- 02/18/17- No acute intracranial hemorrhage. Large right temporal parietal craniectomy defect with cranioplasty. Stable partially cystic encephalomalacia left posterior perisylvian region. Small hyperdense focus right frontal subcortical region consistent with a small cavernoma. CT Chest angio: suggesting small pulmonary emboli within distal segmental and subsegmental branches of RLL and RML pulmonary artery (see full report). Heme/Onc consult, Dr. Bruner, help appreciated- follow up recommendations Pulm consult, Dr. Coleman, help appreciated Rocephin 1 gm IVPB Q12H Azithromycin 500 mg IVPB daily Morphine 2 mg IVP Q4H PRN PT/PTT normal Lipid Panel normal TSH, T4 normal HgbA1C never done 2. Dyspnea PE and pneumonia WBC 11.0 Continue Rocephin 1 gm IVPB Q12H and Azithromycin 500 mg IVPB daily Duonebs 3 mL INH RQ6 Continue Lovenox 80mg SC Q12h LE doppler: posterior tibial vein occludded with echolucent thrombus. Evidence of infrapopliteal DVT in R lower extremity (see full report) CT Chest angio: suggesting small pulmonary emboli within distal segmental and subsegmental branches of RLL and RML pulmonary artery (see full report). CT Head- 02/18/17- No acute intracranial hemorrhage. Large right temporal parietal craniectomy defect with cranioplasty. Stable partially cystic encephalomalacia left posterior perisylvian region. Small hyperdense focus right frontal subcortical region consistent with a small cavernoma. Heme/Onc consult, Dr. Bruner, help appreciated Pulm consult, Dr. Coleman, help appreciated 3. History of Subdural hematoma CT Head- 02/18/17- No acute intracranial hemorrhage. Large right temporal parietal craniectomy defect with cranioplasty. Stable partially cystic encephalomalacia left posterior perisylvian region. Small hyperdense focus right frontal subcortical region consistent with a small cavernoma. 4. Asthma Duonebs 3 mL INH RQ6 5. Schizoaffective disorder Celexa 40 mg PO daily Risperidal 3 mg PO HS 6. DVT LE doppler: posterior tibial vein occludded with echolucent thrombus. Evidence of infrapopliteal DVT in R lower extremity (see full report) Continue Lovenox 80mg SC Q12h 7. Transaminitis AST/ALT increased today 145/157 8. Diarrhea Rule out C Diff, order stool studies 9. Hypokalemia 3.5 Repletewith KCL 40 mEq PO x 1 Mag sulfate 1 gm IVPB x 2 Recheck in AM 10. Prophylactic Measures Lovenox 80mg SC Q12h GI:Protonix 40 mg PO daily Zofran 4 mg IVP Q6H PRN <Cristian Monique H - Last Filed: 02/20/17 15:07> Objective - Vital Signs/Intake and Output Vital Signs (last 24 hours): Temp Pulse Resp BP Pulse Ox 97.9 F 120 H 20 151/98 H 95 02/20/17 09:08 02/20/17 09:08 02/20/17 09:08 02/20/17 09:08 02/19/17 23:40 Intake and Output: 02/20/17 02/20/17 06:59 18:59 Intake Total 460 Balance 460 - Medications Medications: Current Medications Albuterol/Ipratropium (Duoneb 3 Mg/0.5 Mg (3 Ml) Ud) 3 ml INH RQ6 [facility] Last Admin: 02/20/17 08:58 Dose: Not Given Citalopram Hydrobromide (Celexa) 40 mg PO DAILY [facility] Last Admin: 02/20/17 10:30 Dose: 40 mg Enoxaparin Sodium (Lovenox) 80 mg SC Q12 [facility] Last Admin: 02/20/17 10:30 Dose: 80 mg Azithromycin 500 mg/ Sodium (Chloride) 250 mls @ 250 mls/hr IVPB DAILY [facility] Last Admin: 02/20/17 14:51 Dose: 250 mls/hr Ceftriaxone Sodium 1 gm/ (Sodium Chloride) 100 mls @ 100 mls/hr IVPB Q12H [facility] Last Admin: 02/20/17 02:37 Dose: 100 mls/hr Morphine Sulfate (Morphine) 2 mg IVP Q4H PRN PRN Reason: Pain, moderate (4-7) Last Admin: 02/20/17 00:31 Dose: 2 mg Ondansetron HCl (Zofran Inj) 4 mg IVP Q6 PRN PRN Reason: Nausea/Vomiting Pantoprazole Sodium (Protonix Ec Tab) 40 mg PO DAILY [facility] Last Admin: 02/20/17 10:30 Dose: 40 mg Potassium Chloride (K-Dur 20 Meq Er Tab) 40 meq PO DAILY [facility] Last Admin: 02/20/17 10:29 Dose: 40 meq Risperidone (Risperdal Tab) 3 mg PO HS [facility] Last Admin: 02/20/17 02:37 Dose: 3 mg - Labs Labs: 02/20/17 06:11 02/20/17 06:11 PT 12.1 SECONDS (9.7-12.2) 02/18/17 06:28 INR 1.1 02/18/17 06:28 APTT 28 SECONDS (21-34) D 02/18/17 06:28 Attending/Attestation - Attestation I have personally seen and examined this patient.: Yes I have fully participated in the care of the patient.: Yes I have reviewed all pertinent clinical information, including history, physical exam and plan: Yes Notes (Text): Medical attending: Patient was seen and examined by me, agrees the above note by medical radiation therapist. Patient was currently on Lovenox subcutaneous twice a day, at this time work and transition the patient over to oral anticoagulation and the patient will be able to be discharged on this. But he will need to have follow-up with hematology oncology. When we saw the patient he reported that he was feeling better, he explains that last night he had a rough night because he was not getting his psychiatry medications however he feels much better now. On exam we also had the patient walk around with us in the hallway, he denied having shortness of breath, denied having chest pain, so at this time the plan is to change patient over to oral anti-coagulation agent Eliquis to be given twice a day and the patient will be discharged. thank you Cristian Monique
[2017-02-21] MEDS: Albuterol-Ipratrop 3 mg / 0.5 (3 ml) UD INH SCH ×3 (01:02→14:07)
[2017-02-21 07:21] LABS: BASO # 0.1 K/uL (0.0-0.2); EOS # 0.3 K/uL (0.0-0.7); EOS % 4.7 % (0.0-4.0); HEMATOCRIT 38.7 % (35.0-51.0); LYMPH # 1.5 K/uL (1.0-4.3); LYMPH % 22.3 % (20.0-40.0); MEAN CELL VOLUME 88.6 fL (80.0-94.0); MEAN CORPUSCULAR HEMOGLOBIN 29.7 pg (27.0-31.0); MEAN CORPUSCULAR HGB CONC 33.5 g/dL (33.0-37.0); MEAN PLATELET VOLUME 7.8 fL (7.2-11.7); MONO # 0.9 K/uL (0.0-0.8); MONO % 12.9 % (0.0-10.0); RED CELL DISTRIBUTION WIDTH 14.9 % (11.5-14.5); WHITE BLOOD COUNT 6.9 K/uL (4.8-10.8)
[2017-02-21 07:33] LABS: CHLORIDE 102 mmol/L (98-107); POTASSIUM 3.8 mmol/L (3.6-5.2); SODIUM 140 mmol/L (132-148)
[2017-02-21 07:35] LABS: AST/SGOT 159 U/L (17-59); BILIRUBIN,TOTAL 0.5 mg/dL (0.2-1.3); CARBON DIOXIDE 26 mmol/L (22-30); GFR AFRICAN-AMERICAN > 60; TOTAL PROTEIN 6.8 g/dL (6.3-8.3)
[2017-02-21 07:36] LABS: ALKALINE PHOSPHATASE 82 U/L (38-126); ALT/SGPT 207 U/L (21-72); BLOOD UREA NITROGEN 12 mg/dL (9-20); CALCIUM 8.3 mg/dl (8.6-10.4); GLUCOSE,RANDOM 116 mg/dL (75-110); PHOSPHOROUS 4.2 mg/dL (2.5-4.5)
[2017-02-21 08:35] VITALS: BP 140/92; PULSE 95; TEMP 98; O2SAT 94
[2017-02-21] MEDS: Enoxaparin 80 mg Syringe SC SCH (10:22)
[2017-02-21] MEDS: Potassium Chloride 20 mEq ER Tab PO SCH (10:22)
[2017-02-21] MEDS: Pantoprazole 40 mg EC Tab PO SCH (10:22)
[2017-02-21] MEDS: Azithromycin 500 MG in Sodium Chloride 0.9% 250 ML IVPB SCH (10:36)
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
[2017-02-22 04:28] LABS: B2 GLYCOPROTEIN I AB(IGA) 11 SAU (<=20); B2 GLYCOPROTEIN I AB(IGG) <9 SGU (<=20); B2 GLYCOPROTEIN I AB(IGM) <9 SMU (<=20); PHOSPHATIDYLSERINE AB IGA <20 U/mL (<20); PHOSPHATIDYLSERINE AB IGM <25 U/mL (<25)
[2017-02-22 17:52] LABS: CARDIOLIPIN AB (IGA) <11 APL (<=11)
--- NOTE | 2017-02-25 14:34 | CARD ---
APPROVED REPORT EKG Measurement Heart [id number] <Conclusion> Normal sinus rhythm Minimal voltage criteria for LVH, may be normal variant ST elevation, probably due to early repolarization Borderline ECG
== END 2017-02-21 15:30 | disposition home or self-care (01) | DRG 543 ==
LOC: C.ER 11:28 → C.9E 15:04 → C.6T 15:52
PROVIDERS: ADMIT Internal Medicine; ATTEND Internal Medicine
DX: I82.441 Acute embolism and thrombosis of right tibial vein (principal); I26.99 Other pulmonary embolism without acute cor pulmonale; J18.9 Pneumonia, unspecified organism; E87.6 Hypokalemia; F25.9 Schizoaffective disorder, unspecified; J45.909 Unspecified asthma, uncomplicated; I82.431 Acute embolism and thrombosis of right popliteal vein; I10 Essential (primary) hypertension; F31.9 Bipolar disorder, unspecified; G93.89 Other specified disorders of brain; K76.0 Fatty (change of) liver, not elsewhere classified; Z79.01 Long term (current) use of anticoagulants; Z79.899 Other long term (current) drug therapy; F17.210 Nicotine dependence, cigarettes, uncomplicated; R74.0 Nonspecific elevation of levels of transaminase and lactic acid dehydrogenase [LDH]

== ENCOUNTER 2017-04-22 16:17 | Observation (INO) | payer MEDICAID ==
[2017-04-22 16:20] VITALS: BMI 25.8
[2017-04-22 16:36] VITALS: RESP 16; TEMP 98.2
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
[2017-04-22 18:56] VITALS: BP 122/85; PULSE 104; O2SAT 94
== END 2017-04-22 18:48 | disposition home or self-care (01) ==
LOC: C.ER 16:17 → C.9OBSV 17:11
PROVIDERS: ADMIT Emergency Medicine; ATTEND Emergency Medicine
DX: F10.229 Alcohol dependence with intoxication, unspecified (principal); F32.9 Major depressive disorder, single episode, unspecified; I10 Essential (primary) hypertension; I26.99 Other pulmonary embolism without acute cor pulmonale
CPT/HCPCS: 82948; 99285; G0378

== ENCOUNTER 2017-06-29 00:20 | Inpatient (IN) | payer MEDICAID ==
[2017-06-29 00:20] VITALS: BMI 25.8
[2017-06-29 01:55] LABS: BASO # 0.1 K/uL (0.0-0.2); BASO % 0.8 % (0.0-2.0); EOS # 0.4 K/uL (0.0-0.7); EOS % 5.5 % (0.0-4.0); HEMATOCRIT 38.7 % (35.0-51.0); LYMPH # 2.3 K/uL (1.0-4.3); LYMPH % 28.9 % (20.0-40.0); MEAN CELL VOLUME 88.4 fL (80.0-94.0); MEAN CORPUSCULAR HEMOGLOBIN 29.8 pg (27.0-31.0); MEAN CORPUSCULAR HGB CONC 33.8 g/dL (33.0-37.0); MEAN PLATELET VOLUME 6.7 fL (7.2-11.7); MONO # 0.9 K/uL (0.0-0.8); MONO % 11.8 % (0.0-10.0); RED CELL DISTRIBUTION WIDTH 14.9 % (11.5-14.5); WHITE BLOOD COUNT 7.9 K/uL (4.8-10.8)
[2017-06-29 02:06] LABS: CHLORIDE 107 mmol/L (98-107); POTASSIUM 3.4 mmol/L (3.6-5.2); SODIUM 145 mmol/L (132-148)
[2017-06-29 02:08] LABS: GFR AFRICAN-AMERICAN > 60
[2017-06-29 02:09] LABS: ALKALINE PHOSPHATASE 81 U/L (38-126); ALT/SGPT 62 U/L (21-72); AST/SGOT 71 U/L (17-59); BILIRUBIN,TOTAL 0.5 mg/dL (0.2-1.3); BLOOD UREA NITROGEN 11 mg/dL (9-20); CARBON DIOXIDE 22 mmol/L (22-30); GLUCOSE,RANDOM 106 mg/dL (75-110)
[2017-06-29 02:10] LABS: ALCOHOL SERUM 219 mg/dl (0-10)
[2017-06-29 03:19] LABS: URINE BILIRUBIN NEGATIVE (NEGATIVE); URINE BLOOD 1+ (NEGATIVE); URINE COLOR Yellow (YELLOW); URINE GLUCOSE (UA) NORMAL (Normal); URINE KETONE NEGATIVE (NEGATIVE); URINE LEUKOCYTE ESTERASE NEG Leu/uL (Negative); URINE PROTEIN 1+ mg/dL (NEGATIVE); URINE UROBILINOGEN NORMAL mg/dL (0.2-1.0); WBC URINE < 1 /hpf (0-5)
--- NOTE | 2017-06-29 03:48 | C.PDOC ---
History Of Present Illness <Jones Guerra - Last Filed: 06/29/17 06:20> <Lance Arevalo - Last Filed: 06/29/17 12:45> 46 y/o male presents to the ER c/o left forearm pain that began today. Patient notes he punched a wall because he is depressed and suicidal. Admits to alcohol use tonight. Denies weakness, numbness, fever, chills, or any other complaints. (Jones Guerra) History Per: Patient History/Exam Limitations: no limitations Onset/Duration Of Symptoms: Hrs Current Symptoms Are (Timing): Still Present Suicide/Self Injury Attempted (Context): None Modifying Factor(s): Alcohol Severity: Mild Associated Symptoms: Depression, Suicidal Thoughts Recent travel outside of the [place]: No Additional History Per: Patient <Jones Guerra - Last Filed: 06/29/17 06:20> <Lance Arevalo - Last Filed: 06/29/17 12:45> Time Seen by Provider: 06/29/17 01:45 Chief Complaint (Nursing): Psychiatric Evaluation Past Medical History Reviewed: Historical Data, Nursing Documentation, Vital Signs - Medical History PMH: Asthma, Bipolar Disorder, Depression, Fractures, HTN, Pneumonia, Pulmonary Embolism, Schizophrenia, Seizures Denies: Alzheimer's Disease, HIV, Chronic Kidney Disease, Sexually Transmitted Disease Family History: States: Unknown Family Hx - Social History Hx Tobacco Use: No Hx Alcohol Use: Yes Hx Substance Use: No - Immunization History Hx Tetanus Toxoid Vaccination: Yes (around March 2016) Hx Influenza Vaccination: No Hx Pneumococcal Vaccination: No <Jones Guerra - Last Filed: 06/29/17 06:20> Review Of Systems Except As Marked, All Systems Reviewed And Found Negative. Constitutional: Positive for: Other (Alcohol intoxicated). Negative for: Fever , Chills Musculoskeletal: Positive for: Arm Pain (Left forearm pain ) Neurological: Negative for: Weakness, Numbness Psych: Positive for: Depression, Suicidal ideation <Jones Guerra - Last Filed: 06/29/17 06:20> Physical Exam - Physical Exam Appears: Non-toxic, No Acute Distress Skin: Warm, Dry Head: Atraumatic, Normacephalic Cardiovascular: Rhythm Regular Respiratory: Normal Breath Sounds, No Rales, No Rhonchi, No Wheezing Gastrointestinal/Abdominal: Soft, No Tenderness Extremity: Normal ROM, Capillary Refill (<2secs), No Deformity, No Swelling, Other (Small abrasion to the left hand) Extremity: Bilateral: Normal Color And Temperature Pulses: Left Radial: Normal, Right Radial: Normal Neurological/Psych: Oriented x3, Normal Speech, Normal Cognition, Normal Motor, Normal Sensation <Jones Guerra - Last Filed: 06/29/17 06:20> ED Course And Treatment - Laboratory Results Result Diagrams: 06/29/17 01:52 06/29/17 01:52 ECG: Interpreted By Me, Viewed By Me ECG Interpretation: Normal, No Acute Changes Interpretation Of ECG: NSR, normal tracings Rate From EC O2 Sat by Pulse Oximetry: 96 (RA) Pulse Ox Interpretation: Normal <Jones Guerra - Last Filed: 06/29/17 06:20> - Laboratory Results Result Diagrams: 06/29/17 01:52 06/29/17 01:52 <Lance Arevalo - Last Filed: 06/29/17 12:45> Disposition <Jones Guerra - Last Filed: 06/29/17 06:20> Discussed With : Ana Garcia Doctor Will See Patient In The: ED - Disposition Disposition Time: 12:00 <Lance Arevalo - Last Filed: 06/29/17 12:45> - Disposition Disposition: HOSPITALIZED Condition: GUARDED Forms: [facility] (Moroccan) - Clinical Impression Clinical Impression: Depression - Scribe Statement The provider has reviewed the documentation as recorded by the Scribe <Jones Guerra - Last Filed: 06/29/17 06:20> <Lance Arevalo - Last Filed: 06/29/17 12:45> - Scribe Statement Sarah bhat All medical record entries made by the Scribe were at my direction and personally dictated by me. I have reviewed the chart and agree that the record accurately reflects my personal performance of the history, physical exam, medical decision making, and the department course for this patient. I have also personally directed, reviewed, and agree with the discharge instructions and disposition. (Jones Guerra)
[2017-06-29] MEDS ORDERED: Multivitamin With Minerals Tab PO ONE (11:03)
[2017-06-29] MEDS: Multiple Vitamins Tab PO SCH (11:06)
[2017-06-29 11:43] VITALS: O2SAT 99
[2017-06-29] MEDS ORDERED: Multiple Vitamins Tab PO SCH (12:15)
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
--- NOTE | 2017-06-29 13:34 | PCM.BM ---
<SukhikamaljitDarshana - Last Filed: 06/29/17 13:32> Treatment Plan Problems - Problems identified on initial assessmt Depression Date Initiated: 06/29/17 Time Initiated: 13:33 Assessment reference: NA Status: Active Priority: 1 Suicidal Ideation Date Initiated: 06/29/17 Time Initiated: 13:34 Assessment reference: NA Status: Monitor Priority: 2 <Ana Garcia - Last Filed: 06/30/17 11:06> - Diagnosis (1) Schizoaffective disorder Status: Acute Interventions: 06/30/17 11:06 * Assess/adjust medications daily and /or as needed * See patient on an individual basis 7x/week to assess status of hallucinations * Discuss risks, benefits, side effects and alternatives of medications (2) Alcohol dependence Status: Acute Interventions: 06/30/17 11:07 * Assess 7x/week regarding severity of withdrawal * Educate regarding risks, benefits, side effects and alternatives of medications * Use Motivational Interviewing for abstinence * Use CBT for relapse prevention * Medication management for withdrawal symptoms * Encourage medication assisted treatment <Chaparrita Briceno - Last Filed: 06/30/17 11:17> Family Contact Family involvement: Family/SO is involved Family contact: Patient agrees to contact Family contact name: Millicent Mendoza-mother Family contacted how many times per week?: 1 - Goals for Treatment Patient goals for treatment: "I want to go to rehab." Discharge/Continuing Care - Education Needs Education Needs: Patient Medication, Patient Coping Skills, Patient Community resources - Discharge Discharge Criteria: Tolerates medication w/o severe side effects, Free of Suicidal thoughts, No longer exhibiting s/s of withdrawal, Reduction of target symptoms Discharge to:: [facility] - Treatment Team Participation Was Patient/Family/SO present at Treatment Team Meeting: Yes
--- NOTE | 2017-06-30 10:00 | PCM.PYCHPN ---
Psychiatric Progress Note - Psychiatric Progress Note Patient seen today, length of contact: 15 min Patient Chief Complaint: I am hearing voices.' Problems Identified/Issues Discussed: Patient seen and evaluated, chart reviewed and discussed with the nurse. The patient reports improvement in his mood and reports somewhat improvement in his withdrawal symptoms, but still reports anxiety, sweating and headaches. He remained isolated and continued to pace back and forth in the hallways. He is still reporting AH non command type. The pt is compliant with medications and reports no side-effects. Symptoms are improving but needs more time to stabilize. After care discussed, support and psychoeducation given. Medication Change: Yes Medical Record Reviewed: Yes Mental Status Examination - Cognitive Function Orientation: Person, Place, Situation, Time Memory: Intact Attention: WNL Concentration: Poor Association: Loose Fund of Knowledge: WNL - Mood Mood: Depressed - Affect Affect: Constricted - Speech Speech: Soft - Formal Thought Process Formal Thought Process: Hallucinations, Delusions, Paranoia - Suicidal Ideation Suicidal Ideation: No - Homicidal Ideation Homicidal Ideation: No Goal/Treatment Plan - Goal/Treatment Plan Need for Continued Stay: Severe depression anxiety, Severe functional impairment Progress Toward Problem(s) and Goals/Treatment Plan: Schizoaffective disorder Celexa 10 mg PO daily Risperdal 1 mg PO BID Trazodone 50 mg PO HS Benadryl 50mg PO PRN Cogentin 2mg PO PRN Alcohol Withdrawal Librium taper Folic acid 1 mg daily Multivitamins [place] and CBT Tobacco use disorder Nicotine patch - Smoking Cessation Smoking Cessation Initiated: No
[2017-06-30] MEDS: Multiple Vitamins Tab PO SCH (10:04)
[2017-06-30] MEDS: Divalproex 500 mg DR Tab PO SCH ×2 (11:39→18:37)
--- NOTE | 2017-06-30 12:36 | CARD ---
APPROVED REPORT EKG Measurement Heart [id number] <Conclusion> Normal sinus rhythm Normal ECG
[2017-07-01] MEDS: guaiFENesin 100 mg/5 ml Syrup UD PO PRN ×2 (00:26→05:32)
[2017-07-01] MEDS: Albuterol HFA 90 mcg/actuation (8 g) INH PRN ×2 (07:57→15:31)
[2017-07-01 08:23] VITALS: RESP 20
[2017-07-01] MEDS: Divalproex 500 mg DR Tab PO SCH ×2 (09:37→17:06)
[2017-07-01] MEDS: Multiple Vitamins Tab PO SCH (09:37)
--- NOTE | 2017-07-01 10:46 | PCM.PYCHPN ---
Psychiatric Progress Note - Psychiatric Progress Note Patient seen today, length of contact: 16 min Patient Chief Complaint: I am feeling much better.' Problems Identified/Issues Discussed: Patient seen and evaluated, chart reviewed and discussed with the nurse. Today patient reports improvement in his mood and hallucinations. He also reports improvement in his withdrawal symptoms. He denies any SI/HI and reports that medications are working and denies any side effects. Symptoms are improving but needs more time to stabilize. After care discussed, support and psychoeducation given. Medication Change: Yes Medical Record Reviewed: Yes Mental Status Examination - Cognitive Function Orientation: Person, Place, Situation, Time Memory: Intact Attention: WNL Concentration: Poor Association: WNL Fund of Knowledge: Poor - Mood Mood: Depressed - Affect Affect: Constricted - Formal Thought Process Formal Thought Process: No Impairment - Suicidal Ideation Suicidal Ideation: No - Homicidal Ideation Homicidal Ideation: No Goal/Treatment Plan - Goal/Treatment Plan Need for Continued Stay: Discharge may exacerbated symptoms, Severe functional impairment Progress Toward Problem(s) and Goals/Treatment Plan: Schizoaffective disorder Celexa 10 mg PO daily Risperdal 1 mg PO BID Trazodone 50 mg PO HS Benadryl 50mg PO PRN Cogentin 2mg PO PRN Alcohol Withdrawal Librium taper Folic acid 1 mg daily Multivitamins [place] and CBT Tobacco use disorder Nicotine patch - Smoking Cessation Smoking Cessation Initiated: No
--- NOTE | 2017-07-01 19:04 | CP.PCM.CON ---
History of Present Illness - History of Present Illness History of Present Illness: PGY1 Medicine Note for Dr. Edinson Bustamante Patient is a 46 yo male with past medical history of SAH and sub-dural hemorrhage s/p craniotomy, HTN, asthma, seizures, PNA, PE, depression, schizoaffective disorder, bipolar disorder. The medicine team has been consulted for management of asthma. The patient states that he has a hx of asthma. He states that he has been using his rescue albuterol inhaler approximately 4 to 5 times per day. He is currently feeling tightness in his chest, "my lungs feel tight." He states he does not currently take a daily inhaler. He is currently smokes 1 joint of marijuana per day. He smokes 2 packs of cigarettes per day. He states that he occasionally snorts cocaine. He drinks alcohol everyday, 3 cases. He states that he was recently seen at the [facility] for a seizure and asthma exacerbation on Monday06/28/17, but does not remember what they did for him. He has a hx of seizures but has not been taking his medication recently. He is also complaining of dysphagia. "My throat hurts when I talk and when I swallow." He states that he has been sticking his fingers down his throat to make himself vomit because food feels like its getting stuck on the left side of his throat. This has been a chronic problem for him since his craniotomy. PMHx: intracranial hemorrhage, subdural hematoma (evacuated at [facility] in Oct 2016), HTN, asthma, seizures, PE, depression, schizoaffective disorder, bipolar disorder. PSHx: Craniotomy, ORIF of left wrist (2004) Social hx: drinks alcohol all day every day, 1 joint of weed per day, cocaine occasionally, smokes 2 packs of cigarettes per day used to live with and parents who kicked him out 1 month ago for his alcohol use, has 3 children Fam hx: adopted, biological mother was an alcoholic Review of Systems - Review of Systems Review of Systems: ROS are not felt to be reliable due to patient's mental status/hx of drug/ alcohol abuse. - EENT Eyes: Loss of Vision (left eye) Nose/Mouth/Throat: As Per HPI, Dysphagia, Sore Throat - Cardiovascular Cardiovascular: As Per HPI - Respiratory Respiratory: As Per HPI - Gastrointestinal Gastrointestinal: As Per HPI, Vomiting (self induced vomiting). absent: Constipation, Diarrhea, Melena, Nausea - Musculoskeletal Musculoskeletal: As Per HPI - Integumentary Integumentary: As Per HPI - Neurological Neurological: As Per HPI - Psychiatric Psychiatric: As Per HPI - Endocrine Endocrine: As Per HPI - Hematologic/Lymphatic Hematologic: As Per HPI Past Patient History - Infectious Disease Hx of Infectious Diseases: None - Past Medical History & Family History Past Medical History?: Yes - Past Social History Smoking Status: Former Smoker - CARDIAC Hx Hypertension: Yes - PULMONARY Hx Asthma: Yes Hx Pneumonia: Yes Hx Pulmonary Embolism: Yes - NEUROLOGICAL Hx Seizures: Yes - HEENT Hx HEENT Problems: Yes - RENAL Hx Chronic Kidney Disease: No - ENDOCRINE/METABOLIC Hx Endocrine Disorders: No - HEMATOLOGICAL/ONCOLOGICAL Hx Human Immunodeficiency Virus (HIV): No - INTEGUMENTARY Hx Dermatological Problems: No - MUSCULOSKELETAL/RHEUMATOLOGICAL Hx Fractures: Yes - GASTROINTESTINAL Hx Gastrointestinal Disorders: No - GENITOURINARY/GYNECOLOGICAL Hx Sexually Transmitted Disorders: No - PSYCHIATRIC Hx Substance Use: Yes - SURGICAL HISTORY Hx Surgeries: No - ANESTHESIA Hx Anesthesia: Yes Hx Anesthesia Reactions: No Hx Malignant Hyperthermia: No Meds Allergies/Adverse Reactions: Allergies Allergy/AdvReac Type Severity Reaction Status Date / Time No Known Allergies Allergy Verified 06/29/17 00:47 - Medications Medications: Current Medications Acetaminophen (Tylenol 325mg Tab) 650 mg PO Q6 PRN PRN Reason: Fever >100.4 F Albuterol (Ventolin Hfa 90 Mcg/Actuation (8 G)) 1 puff INH RQ4 PRN PRN Reason: Shortness of Breath Last Admin: 07/01/17 15:31 Dose: 1 puff Albuterol/Ipratropium (Duoneb 3 Mg/0.5 Mg (3 Ml) Ud) 3 ml INH RQ6 PRN PRN Reason: Shortness of Breath Benztropine Mesylate (Cogentin) 2 mg PO Q6 PRN PRN Reason: Extra Pyramidal Symptoms Last Admin: 07/01/17 17:06 Dose: 2 mg Chlordiazepoxide (Librium) 25 mg PO TID CHLOE PRN Reason: Taper Stop: 07/04/17 11:59 Last Admin: 07/01/17 17:06 Dose: 25 mg Chlordiazepoxide (Librium) 25 mg PO Q4H PRN PRN Reason: Alcohol Withdrawal Citalopram Hydrobromide (Celexa) 10 mg PO DAILY [facility] Last Admin: 07/01/17 09:37 Dose: 10 mg Clonidine HCl (Catapres) 0.1 mg PO Q4H PRN PRN Reason: Symptoms of alcohol withdrawl Diphenhydramine HCl (Benadryl) 50 mg PO Q6 PRN PRN Reason: Extra Pyramidal Symptoms Last Admin: 07/01/17 17:15 Dose: 50 mg Divalproex Sodium (Depakote Dr) 500 mg PO BID [facility] Last Admin: 07/01/17 17:06 Dose: 500 mg Famotidine (Pepcid) 20 mg PO BID [facility] Last Admin: 07/01/17 17:06 Dose: 20 mg Folic Acid (Folic Acid) 1 mg PO DAILY [facility] Last Admin: 07/01/17 09:37 Dose: 1 mg Guaifenesin (Robitussin) 100 mg PO Q4H PRN PRN Reason: Cough Last Admin: 07/01/17 05:32 Dose: 100 mg Haloperidol (Haldol) 5 mg PO Q8 PRN PRN Reason: Moderate Agitation Loperamide HCl (Imodium) 2 mg PO Q8 PRN PRN Reason: Diarrhea Multivitamins (Hexavitamin) 1 tab PO DAILY [facility] Last Admin: 07/01/17 09:37 Dose: 1 tab Ondansetron HCl (Zofran Tab) 4 mg PO Q8H PRN PRN Reason: Nausea/Vomiting Risperidone (Risperdal Tab) 2 mg PO BID [facility] Last Admin: 07/01/17 17:05 Dose: 2 mg Thiamine HCl (Vitamin B1 Tab) 100 mg PO DAILY [facility] Last Admin: 07/01/17 09:37 Dose: 100 mg Trazodone HCl (Desyrel) 50 mg PO HS PRN PRN Reason: Insomnia Physical Exam - Constitutional Appears: No Acute Distress - Head Exam Additional comments: craniotomy scar on top of right side of head. - Eye Exam Eye Exam: EOMI Pupil Exam: Fixed (Left sided pupil. non-reactive to light.) Additional comments: Left side pupil>right side pupil - ENT Exam ENT Exam: Mucous Membranes Moist Additional comments: Deviated septum to right side. - Neck Exam Neck exam: Negative for: Lymphadenopathy, Tenderness - Respiratory Exam Respiratory Exam: Clear to Auscultation Bilateral, NORMAL BREATHING PATTERN. absent: Accessory Muscle Use, Chest Wall Tenderness, Prolonged Expiratory Phase , Rales, Wheezes, Respiratory Distress, Stridor - Cardiovascular Exam Cardiovascular Exam: REGULAR RHYTHM, +S1, +S2 - GI/Abdominal Exam GI & Abdominal Exam: Normal Bowel Sounds, Soft. absent: Distended, Guarding, Organomegaly, Tenderness Additional comments: central obesity. - Extremities Exam Extremities exam: Positive for: normal capillary refill, normal inspection, pedal pulses present (2+). Negative for: calf tenderness, pedal edema, tenderness - Neurological Exam Neurological exam: Alert, CN II-XII Intact - Psychiatric Exam Psychiatric exam: Depressed - Skin Skin Exam: Dry, Normal Color, Warm Results - Vital Signs Recent Vital Signs: Last Vital Signs Temp 99.0 F 07/01/17 08:23 Pulse 98 H 07/01/17 08:23 Resp 20 07/01/17 08:23 BP 112/75 07/01/17 08:23 Pulse Ox 99 06/29/17 11:42 - Labs Result Diagrams: 06/29/17 01:52 06/29/17 01:52 Assessment & Plan - Assessment and Plan (Free Text) Assessment: Hx of Asthma - Encourage Nicotine Cessation - Will not prescribe nicotine patch at this time. Do not believe patient will stop smoking at this time. He is currently smoking 2 packs per day. - Started on Duonebs Q6H PRN for SOB/wheezing - F/U Chest X-ray PA & Lateral Hx of SAH & Subdural hemorrhage s/p Craniotomy - Continue Depakote - Provide patient with Neurology info upon discharge c/o Dysphagia - Recommend outpatient EGD with GI Rest of management as per Psych - Date & Time Date: 07/01/17 Time: 19:09
[2017-07-01] MEDS: Albuterol-Ipratrop 3 mg / 0.5 (3 ml) UD INH PRN (19:15)
[2017-07-01] MEDS ORDERED: Potassium Chloride 20 mEq ER Tab PO STA (19:21)
[2017-07-01] MEDS ORDERED: Potassium Chloride 20 mEq ER Tab PO ONE (20:45)
[2017-07-02] MEDS: Albuterol-Ipratrop 3 mg / 0.5 (3 ml) UD INH PRN (01:25)
[2017-07-02] MEDS: Albuterol HFA 90 mcg/actuation (8 g) INH PRN ×2 (04:39→08:52)
[2017-07-02] MEDS ORDERED: Iodixanol 320 MG/ML 100 ML BOTTLE IV ONE (08:45)
[2017-07-02] MEDS: guaiFENesin 100 mg/5 ml Syrup UD PO PRN (08:52)
[2017-07-02] MEDS: Divalproex 500 mg DR Tab PO SCH (09:29)
[2017-07-02] MEDS: Multiple Vitamins Tab PO SCH (09:30)
[2017-07-02] MEDS ORDERED: Pneumococcal 23-Valent Vaccine IM ONE (10:00)
--- NOTE | 2017-07-02 10:18 | CP.PCM.PN ---
<Jon Schneider - Last Filed: 07/02/17 11:35> Subjective - Date & Time of Evaluation Date of Evaluation: 07/02/17 Time of Evaluation: 08:00 - Subjective Subjective: PGY [address] Edinson Bustamante Patient seen and examined this morning. Patient was sitting upright, eating breakfast and talking with the other patients. He states he is feeling ok and denies any difficulty breathing. He states he is still having some difficulty with swallowing but has not been forcing himself to vomit overnight. Denies f/c , n/v, d/c, sob or cp. Objective - Vital Signs/Intake and Output Vital Signs (last 24 hours): Temp Pulse Resp BP Pulse Ox 99.0 F 98 H 20 112/75 99 07/01/17 08:23 07/01/17 08:23 07/01/17 08:23 07/01/17 08:23 06/29/17 11:42 - Medications Medications: Current Medications Acetaminophen (Tylenol 325mg Tab) 650 mg PO Q6 PRN PRN Reason: Fever >100.4 F Last Admin: 07/02/17 02:25 Dose: 650 mg Albuterol (Ventolin Hfa 90 Mcg/Actuation (8 G)) 1 puff INH RQ4 PRN PRN Reason: Shortness of Breath Last Admin: 07/02/17 08:52 Dose: 1 puff Albuterol/Ipratropium (Duoneb 3 Mg/0.5 Mg (3 Ml) Ud) 3 ml INH RQ6 PRN PRN Reason: Shortness of Breath Last Admin: 07/02/17 01:25 Dose: 3 ml Benztropine Mesylate (Cogentin) 2 mg PO Q6 PRN PRN Reason: Extra Pyramidal Symptoms Last Admin: 07/01/17 17:06 Dose: 2 mg Chlordiazepoxide (Librium) 25 mg PO TID CHLOE PRN Reason: Taper Stop: 07/04/17 11:59 Last Admin: 07/02/17 09:36 Dose: 25 mg Chlordiazepoxide (Librium) 25 mg PO Q4H PRN PRN Reason: Alcohol Withdrawal Last Admin: 07/02/17 02:24 Dose: 25 mg Citalopram Hydrobromide (Celexa) 10 mg PO DAILY [facility]LOE Last Admin: 07/02/17 09:29 Dose: 10 mg Clonidine HCl (Catapres) 0.1 mg PO Q4H PRN PRN Reason: Symptoms of alcohol withdrawl Diphenhydramine HCl (Benadryl) 50 mg PO Q6 PRN PRN Reason: Extra Pyramidal Symptoms Last Admin: 07/02/17 02:30 Dose: 50 mg Divalproex Sodium (Depakote Dr) 500 mg PO BID [facility] Last Admin: 07/02/17 09:29 Dose: 500 mg Famotidine (Pepcid) 20 mg PO BID [facility] Last Admin: 07/02/17 09:30 Dose: 20 mg Folic Acid (Folic Acid) 1 mg PO DAILY [facility] Last Admin: 07/02/17 09:29 Dose: 1 mg Guaifenesin (Robitussin) 100 mg PO Q4H PRN PRN Reason: Cough Last Admin: 07/02/17 08:52 Dose: 100 mg Haloperidol (Haldol) 5 mg PO Q8 PRN PRN Reason: Moderate Agitation Loperamide HCl (Imodium) 2 mg PO Q8 PRN PRN Reason: Diarrhea Multivitamins (Hexavitamin) 1 tab PO DAILY [facility] Last Admin: 07/02/17 09:30 Dose: 1 tab Ondansetron HCl (Zofran Tab) 4 mg PO Q8H PRN PRN Reason: Nausea/Vomiting Risperidone (Risperdal Tab) 2 mg PO BID [facility] Last Admin: 07/02/17 09:29 Dose: 2 mg Thiamine HCl (Vitamin B1 Tab) 100 mg PO DAILY [facility] Last Admin: 07/02/17 09:30 Dose: 100 mg Trazodone HCl (Desyrel) 50 mg PO HS PRN PRN Reason: Insomnia - Constitutional Appears: Non-toxic, No Acute Distress - Head Exam Head Exam: ATRAUMATIC, NORMOCEPHALIC - Eye Exam Eye Exam: EOMI - ENT Exam ENT Exam: Mucous Membranes Moist Additional comments: Nasal septum deviated to the right. - Neck Exam Neck Exam: absent: Lymphadenopathy, Tenderness - Respiratory Exam Respiratory Exam: Clear to Ausculation Bilateral, NORMAL BREATHING PATTERN. absent: Accessory Muscle Use, Rales, Wheezes, Respiratory Distress - Cardiovascular Exam Cardiovascular Exam: REGULAR RHYTHM, +S1, +S2 - GI/Abdominal Exam GI & Abdominal Exam: Soft, Normal Bowel Sounds. absent: Distended, Guarding, Tenderness - Extremities Exam Extremities Exam: absent: Joint Swelling, Pedal Edema - Neurological Exam Neurological Exam: Alert, Awake, Normal Gait - Skin Skin Exam: Dry, Normal Color, Warm Assessment and Plan - Assessment and Plan (Free Text) Plan: Hx of Asthma, PE and DVT - Encourage Nicotine Cessation - Will not prescribe nicotine patch at this time. Do not believe patient will stop smoking at this time. He is currently smoking 2 packs per day. - Started on Duonebs Q6H PRN for SOB/wheezing - 07/02 LE Venous Doppler - No abnormalities visualized b/l - 07/02 CTA - 1. No definite pulmonary embolus identified bilaterally.2. Fibrotic changes are again seen at the right upper lobe with linear atelectasis or fibrosis identified at the inferior right middle lobe base. Prior right middle lobe reticulonodular changes appear to have resolved. 3. Shotty mediastinal lymph nodes. 4. Mild compression fractures T8 and T9, indeterminate in age. Hx of SAH & Subdural hemorrhage s/p Craniotomy - Continue Depakote - Provide patient with Neurology info upon discharge - 07/02 CT HEAD W/O - 1. Prior subtotal right rell craniectomy with cranioplasty is not as identified unchanged in appearance compared to prior head CT 02/17/2017. No definite acute intracranial findings. 2. Upper limits normal ventricular system again identified as well as probable calcification at the right frontal lobe once again. 3. Multifocal ethmoid sinusitis. 4. Motion artifacts limit this exam somewhat. c/o Dysphagia - Recommend outpatient EGD with GI Medicine team will be signing off, consult as needed. Rest of management as per Psych Case discussed with Dr. Edinson Schneider PGY1 <Elder Bustamante - Last Filed: 07/02/17 13:42> Objective - Vital Signs/Intake and Output Vital Signs (last 24 hours): Temp Pulse Resp BP Pulse Ox 97.5 F L 116 H 20 144/99 H 99 07/02/17 11:00 07/02/17 11:00 07/02/17 11:00 07/02/17 11:00 06/29/17 11:42 - Medications Medications: Current Medications Acetaminophen (Tylenol 325mg Tab) 650 mg PO Q6 PRN PRN Reason: Fever >100.4 F Last Admin: 07/02/17 02:25 Dose: 650 mg Albuterol (Ventolin Hfa 90 Mcg/Actuation (8 G)) 1 puff INH RQ4 PRN PRN Reason: Shortness of Breath Last Admin: 07/02/17 08:52 Dose: 1 puff Albuterol/Ipratropium (Duoneb 3 Mg/0.5 Mg (3 Ml) Ud) 3 ml INH RQ6 PRN PRN Reason: Shortness of Breath Last Admin: 07/02/17 01:25 Dose: 3 ml Benztropine Mesylate (Cogentin) 2 mg PO Q6 PRN PRN Reason: Extra Pyramidal Symptoms Last Admin: 07/01/17 17:06 Dose: 2 mg Chlordiazepoxide (Librium) 25 mg PO BID [facility] PRN Reason: Taper Stop: 07/04/17 11:59 Last Admin: 07/02/17 09:36 Dose: 25 mg Chlordiazepoxide (Librium) 25 mg PO Q4H PRN PRN Reason: Alcohol Withdrawal Last Admin: 07/02/17 02:24 Dose: 25 mg Citalopram Hydrobromide (Celexa) 10 mg PO DAILY [facility] Last Admin: 07/02/17 09:29 Dose: 10 mg Clonidine HCl (Catapres) 0.1 mg PO Q4H PRN PRN Reason: Symptoms of alcohol withdrawl Diphenhydramine HCl (Benadryl) 50 mg PO Q6 PRN PRN Reason: Extra Pyramidal Symptoms Last Admin: 07/02/17 02:30 Dose: 50 mg Divalproex Sodium (Depakote Dr) 500 mg PO BID [facility] Last Admin: 07/02/17 09:29 Dose: 500 mg Famotidine (Pepcid) 20 mg PO BID [facility] Last Admin: 07/02/17 09:30 Dose: 20 mg Folic Acid (Folic Acid) 1 mg PO DAILY [facility] Last Admin: 07/02/17 09:29 Dose: 1 mg Guaifenesin (Robitussin) 100 mg PO Q4H PRN PRN Reason: Cough Last Admin: 07/02/17 08:52 Dose: 100 mg Haloperidol (Haldol) 5 mg PO Q8 PRN PRN Reason: Moderate Agitation Loperamide HCl (Imodium) 2 mg PO Q8 PRN PRN Reason: Diarrhea Multivitamins (Hexavitamin) 1 tab PO DAILY [facility] Last Admin: 07/02/17 09:30 Dose: 1 tab Ondansetron HCl (Zofran Tab) 4 mg PO Q8H PRN PRN Reason: Nausea/Vomiting Risperidone (Risperdal Tab) 2 mg PO BID [facility] Last Admin: 07/02/17 09:29 Dose: 2 mg Thiamine HCl (Vitamin B1 Tab) 100 mg PO DAILY [facility] Last Admin: 07/02/17 09:30 Dose: 100 mg Trazodone HCl (Desyrel) 50 mg PO HS PRN PRN Reason: Insomnia Attending/Attestation - Attestation I have personally seen and examined this patient.: Yes I have fully participated in the care of the patient.: Yes I have reviewed all pertinent clinical information, including history, physical exam and plan: Yes Notes (Text): 07/02/17 13:41 Seen shortly after resident. Exam, assessment and plan, results of Venous Doppler, CT Angio discussed. Medicine Team will sign off on paitent. Discussed with Psychiatry Nurse for discharging physician to refer to our notes for recommendations for patient to follow up with Neurology and GI for further outpatient evaluation and management. Elder Bustamante D.O.
--- NOTE | 2017-07-02 10:45 | CT ---
PROCEDURE: CT HEAD WITHOUT CONTRAST. HISTORY: Headache and PRIOR Hx of SAH S/P craniotomy COMPARISON: Head CT 02/17/2017 TECHNIQUE: Axial computed tomography images were obtained through the head/brain without intravenous contrast. Radiation dose: Total exam DLP = 957 mGy-cm. This CT exam was performed using one or more of the following dose reduction techniques: Automated exposure control, adjustment of the mA and/or kV according to patient size, and/or use of iterative reconstruction technique. FINDINGS: HEMORRHAGE: No acute intracranial hemorrhage. BRAIN: A chronic hyperdensity probably reflecting calcification is unchanged at the right frontal subcortical white matter. Upper limits normal ventricular system volume is again appreciated and is stable in the interval. No definite hydrocephalus. No cortical edema. No suspicious cortical or medullary lucency is seen above or below the tentorium including the brainstem. There is no suspicious extra-axial fluid collection identified. Linear hyperdensity or at the right temporal region status post prior cranioplasty is unchanged and does not represent a subdural hematoma. VENTRICLES: Discussed above. . CALVARIUM: S/p subtotal right rell craniectomy with cranioplasty. PARANASAL SINUSES: Multifocal ethmoid sinusitis. MASTOID AIR CELLS: Unremarkable as visualized. No inflammatory changes. OTHER FINDINGS: Motion artifacts limit this exam somewhat. IMPRESSION: 1. Prior subtotal right rell craniectomy with cranioplasty is not as identified unchanged in appearance compared to prior head CT 02/17/2017. No definite acute intracranial findings. 2. Upper limits normal ventricular system again identified as well as probable calcification at the right frontal lobe once again. 3. Multifocal ethmoid sinusitis. 4. Motion artifacts limit this exam somewhat.
[2017-07-02 11:01] VITALS: BP 144/99; PULSE 116; TEMP 97.5
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
--- NOTE | 2017-07-04 10:42 | VASCLAB ---
PROCEDURE: Lower Extremity Venous Duplex Exam. 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 HISTORY: Shortness of breath, hx of dvt PRIORS: Previous vascular venous study, , abnormal. TECHNIQUE: Bilateral common femoral, femoral, popliteal and posterior tibial, peroneal and great saphenous veins were evaluated. Flow was assessed with color Doppler, compressibility, assessment of phasic flow and augmentation response. Report prepared by JUNIOR Hernandez FINDINGS: RIGHT: 1. Common Femoral Vein: 1.1. Compressibility - Fully compressible: Thrombus - None : Flow - Phasic: Augmentation -Normal: Reflux - None. 2. Femoral Vein: 2.1. Compressibility - Fully compressible: Thrombus - None : Flow - Phasic: Augmentation -Normal: Reflux - None. 3. Popliteal Vein: 3.1. Compressibility - Fully compressible: Thrombus - None : Flow - Phasic: Augmentation -Normal: Reflux - None. 4. Posterior Tibial Vein: 4.1. Compressibility - Fully compressible: Thrombus - None: Flow - Phasic: Augmentation -Normal: Reflux - None. 5. Peroneal Vein: 5.1. Compressibility - Fully compressible: Thrombus - None: Flow - Phasic: Augmentation -Normal: Reflux - None. 6. Great Saphenous Vein: 6.1. Compressibility - Fully compressible: Thrombus - None: Flow - Phasic: Augmentation - Normal: Reflux - None. LEFT: 1. Common Femoral Vein: 1.1. Compressibility - Fully compressible: Thrombus - None: Flow - Phasic: Augmentation -Normal: Reflux - None. 2. Femoral Vein: 2.1. Compressibility - Fully compressible: Thrombus - None: Flow - Phasic: Augmentation -Normal: Reflux - None. 3. Popliteal Vein: 3.1. Compressibility - Fully compressible: Thrombus - None : Flow - Phasic: Augmentation -Normal: Reflux - None. 4. Posterior Tibial Vein: 4.1. Compressibility - Fully compressible: Thrombus - None: Flow - Phasic: Augmentation -Normal: Reflux - None. 5. Peroneal Vein: 5.1. Compressibility - Fully compressible: Thrombus - None: Flow - Phasic: Augmentation -Normal: Reflux - None. 6. Great Saphenous Vein: 6.1. Compressibility - Fully compressible: Thrombus - None: Flow - Phasic: Augmentation - Normal: Reflux - None. OTHER FINDINGS: Right: None significant. Left: None significant. IMPRESSION: Right: No evidence of deep or superficial vein thrombosis of the right lower extremity. Normal valve function noted of the right side. Left: No evidence of deep or superficial vein thrombosis of the left lower extremity. Normal valve function noted of the left side.
--- NOTE | 2017-07-13 18:53 | CARD ---
APPROVED REPORT EKG Measurement Heart [id number] <Conclusion> Normal sinus rhythm Moderate voltage criteria for LVH, may be normal variant Borderline ECG
== END 2017-07-02 13:30 | disposition home or self-care (01) | DRG 430 ==
LOC: C.ER 00:20 → C.5E 12:43
PROVIDERS: ADMIT Psychiatry & Neurology Psychiatry; ATTEND Psychiatry & Neurology Psychiatry
PROC: HZ2ZZZZ Detoxification Services for Substance Abuse Treatment (ICD-10-PCS; principal; 2017-06-29)
DX: F25.9 Schizoaffective disorder, unspecified (principal); J45.901 Unspecified asthma with (acute) exacerbation; I10 Essential (primary) hypertension; F14.90 Cocaine use, unspecified, uncomplicated; F10.239 Alcohol dependence with withdrawal, unspecified; F10.230 Alcohol dependence with withdrawal, uncomplicated; F22 Delusional disorders; F17.210 Nicotine dependence, cigarettes, uncomplicated; F43.10 Post-traumatic stress disorder, unspecified; F12.90 Cannabis use, unspecified, uncomplicated; Z86.718 Personal history of other venous thrombosis and embolism; F10.229 Alcohol dependence with intoxication, unspecified; Y90.7 Blood alcohol level of 200-239 mg/100 ml

== ENCOUNTER 2017-10-09 11:36 | Emergency (ER) | payer MEDICAID ==
[2017-10-09 11:36] VITALS: BMI 25.8
[2017-10-09 11:52] VITALS: BP 136/89; PULSE 87; RESP 18; TEMP 98.3; O2SAT 98
--- NOTE | 2017-10-09 12:34 | C.PDOC ---
History Of Present Illness [place] prior medical evaluation. Pt was called three times different areas of ED without answer. Time Seen by Provider: 10/09/17 11:55 Chief Complaint (Nursing): Substance Abuse History Per: EMS Past Medical History Reviewed: Nursing Documentation Vital Signs: Last Vital Signs Temp 98.3 F 10/09/17 11:49 Pulse 87 10/09/17 11:49 Resp 18 10/09/17 12:33 BP 136/89 10/09/17 11:49 Pulse Ox 98 10/09/17 12:34 - Medical History PMH: Asthma, Bipolar Disorder, Depression, Fractures, HTN, Pneumonia, Pulmonary Embolism, Schizophrenia, Seizures Denies: Alzheimer's Disease, Diabetes, Hepatitis, HIV, Chronic Kidney Disease , Sexually Transmitted Disease - [facility] Procedures DETOXIFICATION SERVICES FOR SUBSTANCE ABUSE TREATMENT (06/29/17) GROUP PSYCHOTHERAPY (03/11/16) INTRODUCTION OF SERUM/TOX/VACCINE INTO MUSCLE, PERC APPROACH (07/01/16) LINEAR REP LID LACER (03/07/15) MEDICATION MANAGEMENT (06/20/16) OTHER SKIN & SUBQ I D (03/16/15) TETANUS TOXOID ADMINIST (03/07/15) Family History: States: Unknown Family Hx - Social History Hx Tobacco Use: No Hx Alcohol Use: Yes Hx Substance Use: No - Immunization History Hx Tetanus Toxoid Vaccination: Yes (around March 2016) Hx Influenza Vaccination: No Hx Pneumococcal Vaccination: No Review Of Systems Review Of Systems: ROS cannot be obtained secondary to pt's inabilty to answer questions. ED Course And Treatment O2 Sat by Pulse Oximetry: 98 Pulse Ox Interpretation: Normal Disposition - Disposition Disposition: ELOPEMENT - ER ONLY Disposition Time: 12:32 Condition: STABLE Forms: [facility] (Wallisian) - Clinical Impression Clinical Impression: Acute alcohol abuse, Chest wall pain
== END 2017-10-09 12:32 | disposition left against medical advice (07) ==
LOC: C.ER 11:36
DX: F10.10 Alcohol abuse, uncomplicated (principal); R07.89 Other chest pain; I10 Essential (primary) hypertension

== ENCOUNTER 2017-11-27 07:59 | Emergency (ER) | payer MEDICAID ==
[2017-11-27 08:00] VITALS: BMI 25.8
--- NOTE | 2017-11-27 08:25 | C.PDOC ---
History Of Present Illness 47 year old male presents to the ER for a head injury. Patient states that he was intoxicated last night when he fell and hit the back of his head. Patient thinks he passed out because he woke up and could not remember events leading to his current location. Patient is also complaining about right knee pain. Patient denies any vision changes, dizziness, vomiting, abdominal pain. - HPI Time Seen by Provider: 11/27/17 08:18 Chief Complaint (Nursing): Trauma History Per: Patient History/Exam Limitations: no limitations Onset/Duration Of Symptoms: Sudden Onset Severity: Moderate Past Medical History Reviewed: Historical Data, Nursing Documentation, Vital Signs Vital Signs: Last Vital Signs Temp 97.9 F 11/27/17 10:43 Pulse 100 H 11/27/17 10:43 Resp 18 11/27/17 10:43 BP 149/88 11/27/17 10:43 Pulse Ox 96 11/27/17 11:02 - Medical History PMH: Asthma, Bipolar Disorder, Depression, Fractures, HTN, Pulmonary Embolism, Schizophrenia, Seizures - [facility] Procedures DETOXIFICATION SERVICES FOR SUBSTANCE ABUSE TREATMENT (06/29/17) GROUP PSYCHOTHERAPY (03/11/16) INTRODUCTION OF SERUM/TOX/VACCINE INTO MUSCLE, PERC APPROACH (07/01/16) LINEAR REP LID LACER (03/07/15) MEDICATION MANAGEMENT (06/20/16) OTHER SKIN & SUBQ I D (03/16/15) TETANUS TOXOID ADMINIST (03/07/15) Family History: States: No Known Family Hx - Social History Hx Tobacco Use: No Hx Alcohol Use: Yes Hx Substance Use: No - Immunization History Hx Tetanus Toxoid Vaccination: Yes (around March 2016) Hx Influenza Vaccination: No Hx Pneumococcal Vaccination: No Review Of Systems Constitutional: Negative for: Weakness Eyes: Negative for: Vision Change, Redness ENT: Negative for: Nose Congestion, Throat Pain Cardiovascular: Negative for: Chest Pain, Palpitations Respiratory: Negative for: Cough, Shortness of Breath Gastrointestinal: Negative for: Vomiting Musculoskeletal: Positive for: Leg Pain (right knee pain) Neurological: Negative for: Weakness, Numbness, Dizziness Physical Exam - Physical Exam Appears: Non-toxic, No Acute Distress, Unkempt Skin: Normal Color, Warm Head: Atraumatic, Normacephalic, No Tenderness, No Swelling, No Abrasion, No Laceration, Other (no hematoma) Eye(s): bilateral: Normal Inspection, PERRL, EOMI, Other (no nystagmus) Ear(s): Bilateral: Normal (no erythema, no hemotympanum, no khan's sign) Nose: Normal, No Epistaxis, No Deformity, No Tenderness Oral Mucosa: Moist Lips: Normal Appearing, No Laceration Throat: Normal, No Erythema, No Exudate Neck: No Midline Cervical Tenderness, No Paracervical Tenderness, No Step Off Deformity, Supple Chest: Symmetrical, No Tenderness Cardiovascular: Rhythm Regular, No Murmur Respiratory: Normal Breath Sounds, No Accessory Muscle Use, No Rales, No Rhonchi , No Wheezing Gastrointestinal/Abdominal: Normal Exam, Soft, No Tenderness Back: Normal Inspection, No Paraspinal Tenderness, Other (no swelling, no ecchymosis) Extremity: Normal ROM, Tenderness (mild tenderness right anterior knee ), No Pedal Edema, No Deformity, No Swelling Neurological/Psych: Oriented x3, Normal Speech, Normal Motor, Normal Sensation Gait: Steady ED Course And Treatment O2 Sat by Pulse Oximetry: 96 (RA) Pulse Ox Interpretation: Normal - Other Rad No standard instances X-Ray: Viewed By Me, Read By Radiologist Interpretation: PROCEDURE: Right Knee Radiographs. HISTORY: pain s.p fall. COMPARISON: None. FINDINGS: BONES: No acute fracture. Os ossific density posterior to the medial joint compartment, atypical location for flabella. Nevertheless, this does not appear to represent an acute fracture fragment. Possible intra-articular osseous density though no donor site is evident. JOINTS: Patellofemoral osteoarthritis. JOINT EFFUSION: Minimal. OTHER FINDINGS: None. IMPRESSION: No acute fracture. Patellofemoral osteoarthritis. Minimal joint effusion. Possible intra-articular osseous body. - CT Scan/US No standard instances Other Rad Studies (CT/US): Read By Radiologist CT/US Interpretation: PROCEDURE: CT HEAD WITHOUT CONTRAST. HISTORY: headache s/p fall yesterday. COMPARISON: 07/02/2017. TECHNIQUE: Axial computed tomography images were obtained through the head/brain without intravenous contrast. Radiation dose: Total exam DLP = 953 mGy-cm. This CT exam was performed using one or more of the following dose reduction techniques: Automated exposure control, adjustment of the mA and/or kV according to patient size, and/or use of iterative reconstruction technique. FINDINGS: HEMORRHAGE: No intracranial hemorrhage. BRAIN: Persistent rounded hyperdensity seen in the right frontal cortical/subcortical white matter seen on series 2, image 21 measuring 6 millimeters. This is not significantly changed since the prior study. This may represent underlying calcification. Linear hyperdensity at the right temporal region and best seen on series 2 images 15 through 20 is unchanged in appearance, likely sequelae from prior cranioplasty. VENTRICLES: Persistent mild prominence. CALVARIUM: Status post subtotal right rell craniectomy with cranioplasty. Question chronic right nasal bone deformity. PARANASAL SINUSES: Prominent mucosal thickening of the maxillary sinuses and ethmoid air cells. MASTOID AIR CELLS: Unremarkable as visualized. No inflammatory changes. OTHER FINDINGS: None. IMPRESSION: Prior subtotal right rell craniectomy and cranioplasty, unchanged in appearance since the prior study dated 07/02/2017. Mild prominence of the ventricular system. Persistent rounded hyperdensity measuring 6 millimeters in the right frontal region, unchanged, nonspecific, possibly calcification. Multifocal sinusitis. If symptoms persist, consider further evaluation with MRI. Medical Decision Making Medical Decision Making: Impression: intoxicated last night, reports fall and injury to head and knee Plan: * CT head * Knee xray * Tylenol Progress: radiology studies reviewed. Patient remained alert and oriented in no distress. He was ambulatory without signs of discomfort. No indication for further workup. Patient is sober and is stable for discharge Disposition Counseled Patient/Family Regarding: Diagnosis, Need For Followup - Disposition Disposition: HOME/ ROUTINE Disposition Time: 10:32 Condition: STABLE Additional Instructions: naveen estudios de imagen fueron normales phong tylenol o advil por cualquier dolor seguimiento en la clnica para ms lisa coequirino Instructions: Head Injury (ED), Knee Pain (ED) Forms: [facility] (Indian) Print Language: LATVIAN - POA Present On Arrival: None - Clinical Impression Clinical Impression: Fall, accidental, Knee contusion, Closed head injury - PA / CLIPMAN / Resident Statement MD/DO has reviewed & agrees with the documentation as recorded. - Scribe Statement The provider has reviewed the documentation as recorded by the [facility] Provider Attestation All medical record entries made by the Scribe were at my direction and personally dictated by me. I have reviewed the chart and agree that the record accurately reflects my personal performance of the history, physical exam, medical decision making, and the department course for this patient. I have also personally directed, reviewed, and agree with the discharge instructions and disposition.
--- NOTE | 2017-11-27 09:18 | RAD ---
PROCEDURE: Right Knee Radiographs. HISTORY: pain s.p fall COMPARISON: None. FINDINGS: BONES: No acute fracture. Os ossific density posterior to the medial joint compartment, atypical location for flabella. Nevertheless, this does not appear to represent an acute fracture fragment. Possible intra-articular osseous density though no donor site is evident. JOINTS: Patellofemoral osteoarthritis. JOINT EFFUSION: Minimal OTHER FINDINGS: None. IMPRESSION: No acute fracture. Patellofemoral osteoarthritis. Minimal joint effusion. Possible intra-articular osseous body.
--- NOTE | 2017-11-27 09:25 | CT ---
PROCEDURE: CT HEAD WITHOUT CONTRAST. HISTORY: headache s/p fall yesterday COMPARISON: 07/02/2017 TECHNIQUE: Axial computed tomography images were obtained through the head/brain without intravenous contrast. Radiation dose: Total exam DLP = 953 mGy-cm. This CT exam was performed using one or more of the following dose reduction techniques: Automated exposure control, adjustment of the mA and/or kV according to patient size, and/or use of iterative reconstruction technique. FINDINGS: HEMORRHAGE: No intracranial hemorrhage. BRAIN: Persistent rounded hyperdensity seen in the right frontal cortical/subcortical white matter seen on series 2, image 21 measuring 6 millimeters. This is not significantly changed since the prior study. This may represent underlying calcification. Linear hyperdensity at the right temporal region and best seen on series 2 images 15 through 20 is unchanged in appearance, likely sequelae from prior cranioplasty. VENTRICLES: Persistent mild prominence. CALVARIUM: Status post subtotal right rell craniectomy with cranioplasty. Question chronic right nasal bone deformity. PARANASAL SINUSES: Prominent mucosal thickening of the maxillary sinuses and ethmoid air cells. MASTOID AIR CELLS: Unremarkable as visualized. No inflammatory changes. OTHER FINDINGS: None. IMPRESSION: Prior subtotal right rell craniectomy and cranioplasty, unchanged in appearance since the prior study dated 07/02/2017. Mild prominence of the ventricular system. Persistent rounded hyperdensity measuring 6 millimeters in the right frontal region, unchanged, nonspecific, possibly calcification. Multifocal sinusitis. If symptoms persist, consider further evaluation with MRI.
[2017-11-27 10:44] VITALS: BP 149/88; PULSE 100; RESP 18; TEMP 97.9
[2017-11-27 11:01] VITALS: O2SAT 96
== END 2017-11-27 11:04 | disposition home or self-care (01) ==
LOC: C.ER 07:59
DX: S09.90XA Unspecified injury of head, initial encounter (principal); S80.01XA Contusion of right knee, initial encounter; W01.0XXA Fall on same level from slipping, tripping and stumbling without subsequent striking against object, initial encounter; Y92.9 Unspecified place or not applicable

== ENCOUNTER 2018-05-07 19:14 | Emergency (ER) | payer MEDICAID, OTHER ==
[2018-05-07 19:15] VITALS: BMI 25.8
[2018-05-07 19:33] VITALS: PULSE 85; RESP 16; TEMP 98.1; O2SAT 98
--- NOTE | 2018-05-07 20:59 | C.PDOC ---
History Of Present Illness 47 y/o male presents to the ED complaining of intermittent throat pain for months. States he had some complications from an intubation procedure about 6 months ago. Reports he was told he has a hole in his throat. Now reports difficulty swallowing solids and keeping food down. Denies any URI symptoms, SOB , neck pain, fever, or chills. Patient is able to tolerate PO fluids. Time Seen by Provider: 05/07/18 19:45 Chief Complaint (Nursing): ENT Problem History Per: Patient History/Exam Limitations: None Onset/Duration Of Symptoms: Intermittent Episodes Current Symptoms Are (Timing): Still Present Symptoms Have Been: Episodic Past Medical History Reviewed: Historical Data, Nursing Documentation, Vital Signs Vital Signs: Last Vital Signs Temp 98.1 F 05/07/18 19:23 Pulse 85 05/07/18 19:23 Resp 16 05/07/18 19:23 BP Pulse Ox 98 05/07/18 21:56 - Medical History PMH: Asthma, Bipolar Disorder, Depression, Fractures (skull had surgery), HTN ( sometimes), Pulmonary Embolism, Schizophrenia, Seizures Denies: Diabetes, Hepatitis, HIV, Sexually Transmitted Disease - [facility] Procedures DETOXIFICATION SERVICES FOR SUBSTANCE ABUSE TREATMENT (06/29/17) GROUP PSYCHOTHERAPY (03/11/16) INTRODUCTION OF SERUM/TOX/VACCINE INTO MUSCLE, PERC APPROACH (07/01/16) LINEAR REP LID LACER (03/07/15) MEDICATION MANAGEMENT (06/20/16) OTHER SKIN & SUBQ I D (03/16/15) TETANUS TOXOID ADMINIST (03/07/15) Family History: States: Unknown Family Hx - Social History Hx Tobacco Use: No Hx Alcohol Use: Yes Hx Substance Use: Yes - Immunization History Hx Tetanus Toxoid Vaccination: No (around March 2016) Hx Influenza Vaccination: Yes Hx Pneumococcal Vaccination: Yes Review Of Systems Except As Marked, All Systems Reviewed And Found Negative. Constitutional: Negative for: Fever, Chills ENT: Positive for: Throat Pain. Negative for: Ear Pain, Nose Discharge, Nose Congestion Respiratory: Negative for: Cough, Shortness of Breath Musculoskeletal: Negative for: Neck Pain Physical Exam - Physical Exam Appears: Non-toxic, No Acute Distress Skin: Normal Color, Warm, Dry Head: Atraumatic, Normacephalic Eye(s): bilateral: Normal Inspection, PERRL, EOMI Oral Mucosa: Moist Throat: Normal (Pharynx appears normal; Unable to visualize past the hypopharynx ), No Erythema Neck: Normal ROM, Supple, No Other (neck swelling) Lymphatic: No Adenopathy Chest: Symmetrical Cardiovascular: Rhythm Regular Respiratory: Normal Breath Sounds, No Accessory Muscle Use, No Stridor Extremity: Bilateral: Atraumatic, Normal ROM Neurological/Psych: Oriented x3, Normal Speech ED Course And Treatment O2 Sat by Pulse Oximetry: 98 (RA) Pulse Ox Interpretation: Normal - CT Scan/US CT Neck Other Rad Studies (CT/US): Read By Radiologist, Radiology Report Reviewed CT/US Interpretation: EXAM: CT Neck Without Intravenous Contrast. EXAM DATE/ TIME: Examination ordered 05/07/2018 8:02 PM. Image number total count reviewed 321. CLINICAL HISTORY: The patient is 47 years old and is male; Injury or trauma; Injury Trouble swallowing and speaking due. to post et tube; Initial encounter; Laceration; Without foreign body; Additional info: Trouble. swallowing, worsening ? compl post et tube Facility exam id and description: Ct_ necks neck soft. tissue w/o contrast. TECHNIQUE: Axial computed tomography images of the neck without intravenous contrast. All CT scans at this. facility use at least one of these dose optimization techniques: automated exposure control; mA. and/or kV adjustment per patient size (includes targeted exams where dose is matched to clinical. indication); or iterative reconstruction. COMPARISON: No relevant prior studies available. FINDINGS: OROPHARYNX: Unremarkable. No significant tonsillar enlargement. HYPOPHARYNX: Unremarkable. LARYNX: Thickening of the aryepiglottic folds. TRACHEA: Unremarkable. RETROPHARYNGEAL SPACE: Unremarkable. SUBMANDIBULAR/PAROTID GLANDS: Unremarkable. Glands are normal in size. THYROID: No enlarged or calcified nodules. BONES/JOINTS: Nasal bone and left anterior maxillary wall fractures of uncertain chronicity. Ethmoid, sphenoid and maxillary sinus mucosal thickening. Straightening of the cervical spine with. degenerative changes through the cervical spine. Right temporal craniectomy defect. SOFT TISSUES: Unremarkable. VASCULATURE: No acute findings. LYMPH NODES: Unremarkable. No lymphadenopathy. LUNG APICES: Unremarkable as visualized. IMPRESSION: 1. Thickening of the aryepiglottic folds. 2. Nasal bone and left anterior maxillary wall fractures of uncertain chronicity. Ethmoid, sphenoid and. maxillary sinus mucosal thickening. 3. Straightening of the cervical spine with degenerative changes through the cervical spine. Progress Note: CT scan of soft tissue/neck ordered. CT scan reading reviewed, pt in no resp distress, tolerating PO. Case dw Dr Guerra and pt will be discharged with ENT follwo up. plan d/w pt who understands the importance of the follow up Disposition Counseled Patient/Family Regarding: Diagnosis, Need For Followup, Rx Given - Disposition Referrals: Warren Muse MD [Staff Provider] - Disposition: HOME/ ROUTINE Disposition Time: 22:05 Condition: STABLE Additional Instructions: Take more fluids Follow up with ENT- call for appointment Return to ER if worse Instructions: Dysphagia (DC) Forms: [facility] (Swedish) - Clinical Impression Clinical Impression: Sore throat, Dysphagia - PA / INSECTICIDE SPRAYER / Resident Statement MD/DO has reviewed & agrees with the documentation as recorded. - Scribe Statement The provider has reviewed the documentation as recorded by the Scribe (Maricruz Mcconnell) All medical record entries made by the Scribe were at my direction and personally dictated by me. I have reviewed the chart and agree that the record accurately reflects my personal performance of the history, physical exam, medical decision making, and the department course for this patient. I have also personally directed, reviewed, and agree with the discharge instructions and disposition.
--- NOTE | 2018-05-08 09:09 | CT ---
PROCEDURE: CT NECK WITHOUT CONTRAST HISTORY: trouble swallowing,worsening ? compl post ET tube COMPARISON: None. TECHNIQUE: CT of the neck without intravenous contrast. Coronal and sagittal reformats generated. Radiation dose: DLP 401.29 mGy-cm This CT exam was performed using one or more of the following dose reduction techniques: Automated exposure control, adjustment of the mA and/or kV according to patient size, and/or use of iterative reconstruction technique. FINDINGS: NASOPHARYNX: Unremarkable. SUPRAHYOID NECK: Unremarkable oropharynx, oral cavity, parapharyngeal space and retropharyngeal space. INFRAHYOID NECK: There is left focal cord paralysis. There is normal appearance of the right vocal cord. The left focal cord does not oppose centrally. The piriform sinuses are unremarkable. MASS: None. GLANDS: Parotid and submandibular glands unremarkable. Normal size thyroid gland, without nodule. LYMPH NODES: Normal. No lymphadenopathy. CERVICAL SPINE: No fracture. Degenerative disc disease C5-6. OTHER FINDINGS: Chronic pansinusitis. Please note that the frontal sinuses are not included in this examination. IMPRESSION: Left vocal cord paralysis, etiology uncertain. Further evaluation is advised. No mass. Chronic paranasal sinusitis. Preliminary interpretation of this examination was reported by [facility] at 8:56 p.m. on 05/07/2018. There is concurrence of this report with the preliminary interpretation. These findings were discussed by telephone with ELYSSA Lopez, at 9:06 a.m. on 05/08/2018.
== END 2018-05-07 22:13 | disposition home or self-care (01) ==
LOC: C.ER 19:14
DX: J02.9 Acute pharyngitis, unspecified (principal); R13.10 Dysphagia, unspecified; I10 Essential (primary) hypertension; F20.9 Schizophrenia, unspecified

== ENCOUNTER 2018-05-14 14:35 | Inpatient (IN) | payer MEDICAID, OTHER ==
[2018-05-14 15:09] VITALS: BMI 26.6
--- NOTE | 2018-05-14 16:13 | C.PDOC ---
History Of Present Illness 47-year-old male with a PMHx of alcohol abuse and depression presents to the ED requesting detox from alcohol. Last drink was just prior to arrival. Denies any suicidal or homicidal ideation. Patient reports feeling increasingly depressed and hopeless over the past several weeks, which has worsened. He states this has caused his increased drinking, which he states he cannot control. Time Seen by Provider: 05/14/18 15:49 Chief Complaint (Nursing): Substance Abuse History Per: Patient History/Exam Limitations: no limitations Onset/Duration Of Symptoms: Days Current Symptoms Are (Timing): Still Present Suicide/Self Injury Attempted (Context): None Past Medical History Reviewed: Historical Data, Nursing Documentation, Vital Signs Vital Signs: Last Vital Signs Temp 98.9 F 05/14/18 19:49 Pulse 71 05/14/18 19:49 Resp 18 05/14/18 19:49 BP 147/90 05/14/18 19:49 Pulse Ox 96 05/14/18 19:49 - Medical History PMH: Asthma, Bipolar Disorder, Depression, Fractures (skull had surgery), HTN ( sometimes), Pulmonary Embolism, Schizophrenia, Seizures Denies: Diabetes, Hepatitis, HIV, [facility] DETOXIFICATION SERVICES FOR SUBSTANCE ABUSE TREATMENT (06/29/17) GROUP PSYCHOTHERAPY (03/11/16) INTRODUCTION OF SERUM/TOX/VACCINE INTO MUSCLE, PERC APPROACH (07/01/16) LINEAR REP LID LACER (03/07/15) MEDICATION MANAGEMENT (06/20/16) OTHER SKIN & SUBQ I D (03/16/15) TETANUS TOXOID ADMINIST (03/07/15) Family History: States: Unknown Family Hx - Social History Hx Tobacco Use: No Hx Alcohol Use: Yes Hx Substance Use: Yes (marijuana) - Immunization History Hx Tetanus Toxoid Vaccination: No (around March 2016) Hx Influenza Vaccination: Yes Hx Pneumococcal Vaccination: Yes Review Of Systems Except As Marked, All Systems Reviewed And Found Negative. Psych: Positive for: Depression, Other (alcohol abuse). Negative for: Suicidal ideation, Withdrawal Physical Exam - Physical Exam Appears: Non-toxic, No Acute Distress, Other (Alcohol on breath) Skin: Normal Color, Warm, No Rash Head: Atraumatic, Normacephalic Eye(s): bilateral: Normal Inspection Nose: Normal Oral Mucosa: Moist Neck: Normal ROM, Supple Chest: Symmetrical Cardiovascular: Rhythm Regular, No Murmur Respiratory: Normal Breath Sounds, No Accessory Muscle Use Gastrointestinal/Abdominal: Soft, No Tenderness, No Distention Extremity: Bilateral: Atraumatic, Normal Color And Temperature, Normal ROM Neurological/Psych: Oriented x3, Normal Speech ED Course And Treatment - Laboratory Results Result Diagrams: 05/14/18 16:19 05/14/18 16:19 O2 Sat by Pulse Oximetry: 97 (RA) Pulse Ox Interpretation: Normal Medical Decision Making Medical Decision Making: Case discussed with ticket worker, who will evaluate patient. Time: 16:12 Plan: --CMP --UDS --Alcohol serum --CBC --UA Time: 19:30 Case was discussed with psych on-call, agrees to admit the patient. Labs reviewed, patient is medically cleared for psych admission. Disposition Discussed With Dr.: Ana Garcia Doctor Will See Patient In The: Hospital Counseled Patient/Family Regarding: Diagnosis - Disposition Disposition: HOSPITALIZED Disposition Time: 19:30 Condition: STABLE - POA Present On Arrival: None - Clinical Impression Clinical Impression: Schizoaffective disorder, Alcohol abuse - PA / RN ACCESS / Resident Statement MD/DO has reviewed & agrees with the documentation as recorded. - Scribe Statement The provider has reviewed the documentation as recorded by the Scribe (Maricruz Mcconnell) All medical record entries made by the Scribe were at my direction and personally dictated by me. I have reviewed the chart and agree that the record accurately reflects my personal performance of the history, physical exam, medical decision making, and the department course for this patient. I have also personally directed, reviewed, and agree with the discharge instructions and disposition.
[2018-05-14 16:26] LABS: BASO # 0.1 K/uL (0.0-0.2); BASO % 0.8 % (0.0-2.0); EOS # 0.2 K/uL (0.0-0.7); EOS % 2.4 % (0.0-4.0); HEMOGLOBIN 14.4 g/dL (12.0-18.0); LYMPH # 1.4 K/uL (1.0-4.3); LYMPH % 15.2 % (20.0-40.0); MEAN CELL VOLUME 90.1 fL (80.0-94.0); MEAN CORPUSCULAR HEMOGLOBIN 30.6 pg (27.0-31.0); MEAN CORPUSCULAR HGB CONC 33.9 g/dL (33.0-37.0); MEAN PLATELET VOLUME 7.4 fL (7.2-11.7); MONO # 1.1 K/uL (0.0-0.8); MONO % 11.6 % (0.0-10.0); NEUT # 6.5 K/uL (1.8-7.0); RBC 4.71 Mil/uL (4.40-5.90); WHITE BLOOD COUNT 9.2 K/uL (4.8-10.8)
[2018-05-14 16:27] LABS: URINE BILIRUBIN NEGATIVE (NEGATIVE); URINE BLOOD 1+ (NEGATIVE); URINE CLARITY Clear (Clear); URINE COLOR Yellow (YELLOW); URINE GLUCOSE (UA) NORMAL (Normal); URINE LEUKOCYTE ESTERASE NEG Leu/uL (Negative); URINE PROTEIN NEGATIVE (NEGATIVE); URINE UROBILINOGEN NORMAL mg/dL (0.2-1.0)
[2018-05-14 16:57] LABS: ALB/GLOB RATIO 1.5 (1.0-2.1); ALBUMIN 4.5 g/dL (3.5-5.0); ALT/SGPT 92 U/L (21-72); AST/SGOT 94 U/L (17-59); BLOOD UREA NITROGEN 13 mg/dL (9-20); CALCIUM 9.4 mg/dl (8.6-10.4); GFR AFRICAN-AMERICAN > 60; GFR NON-AFRICAN AMERICAN > 60
[2018-05-14 16:58] LABS: BARBITURATES, UR NEGATIVE (NEGATIVE); BENZODIAZEPINES, UR NEGATIVE (NEGATIVE); OPIATES, UR NEGATIVE (NEGATIVE); PHENCYCLIDINE, UR NEGATIVE (NEGATIVE)
[2018-05-14 20:43] VITALS: O2SAT 97
[2018-05-14] MEDS ORDERED: Albuterol HFA 90 mcg/actuation (8 g) INH PRN (21:29)
--- NOTE | 2018-05-14 21:55 | PCM.BM ---
<CaydenHalina Macey - Last Filed: 05/14/18 21:52> Treatment Plan Problems - Problems identified on initial assessmt Depression Date Initiated: 05/14/18 Time Initiated: 21:52 Assessment reference: NA Status: Active Alcohol Abuse Date Initiated: 05/14/18 Time Initiated: 21:52 Assessment reference: NA Status: Active Treatment assets and liabiliti Patient Assests: adapts well, cooperative, ADL independent, physically healthy, negotiates basic needs, cognitively intact Patient Liabilities: live alone, financial problems, substance abuse (ETOH, hx of THC), medical problems - Milieu Protocol Maintain good personal hygiene: daily Encourage regular showers, daily Remind patient to perform daily oral care, daily Assist patient to perform ADL's (Self) Conduct patient checks and document Observation sheet: Q15 minutes (Safety) Maintain personal safety: every shift Educate patient to report safety concerns to staff, every shift Monitor environment for contraband/sharps Medication safety: Monitor for expected outcome, potential side effects: every shift, Assess barriers to learning: every shift, Assess readiness for medication education: every shift <Ana Garcia - Last Filed: 05/16/18 13:31> - Diagnosis (1) Schizoaffective disorder Status: Acute Interventions: 05/16/18 13:31 * Assess/adjust medications daily and /or as needed * See patient on an individual basis 7x/week to assess status of hallucinations * Discuss risks, benefits, side effects and alternatives of medications * (2) Alcohol abuse Status: Chronic Interventions: 05/16/18 13:31 * Assess 7x/week regarding severity of withdrawal * Educate regarding risks, benefits, side effects and alternatives of medications * Use Motivational Interviewing for abstinence * Use CBT for relapse prevention * Medication management for withdrawal symptoms * Encourage medication assisted treatment * <Chaparrita Briceno - Last Filed: 05/16/18 14:05> Family Contact Family involvement: Famliy/SO not involved - Goals for Treatment Patient goals for treatment: "I don't know." Discharge/Continuing Care - Education Needs Education Needs: Patient Medication, Patient Coping Skills, Patient Placement options, Patient Community resources - Discharge Discharge Criteria: No longer exhibiting s/s of withdrawal Discharge to:: Group Home - Treatment Team Participation Discussed with Family/SO: No Was Patient/Family/SO present at Treatment Team Meeting: Yes
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
[2018-05-15] MEDS: Multiple Vitamins Tab PO SCH (10:43)
[2018-05-16] MEDS: Multiple Vitamins Tab PO SCH (10:22)
--- NOTE | 2018-05-16 13:31 | PCM.PYCHPN ---
Psychiatric Progress Note - Psychiatric Progress Note Patient seen today, length of contact: 15 min Patient Chief Complaint: "I m feeling depressed" Problems Identified/Issues Discussed: Patient seen and evaluated, chart reviewed and discussed with the nurse. Pt still reports depressed mood but reports some improvement in the feelings of hopelessness and helplessness. Patient still appears paranoid and delusional. He is on ativan taper and reports withdrawal symptoms including cramps, shakes, back pain and sweating He also reports some improvement in sleep. However he remained isolated and withdrawn. He is taking medications and denies any side effects Symptoms are improving but he needs more time for stabilization. Supportive therapy and psychoeducation were given. Medication Change: Yes Medical Record Reviewed: Yes Mental Status Examination - Cognitive Function Orientation: Person, Place, Situation, Time Memory: Intact Attention: WNL Concentration: Poor Association: Loose Fund of Knowledge: Poor - Mood Mood: Depressed, Anxious - Affect Affect: Constricted, Depressed - Speech Speech: Soft - Formal Thought Process Formal Thought Process: Hallucinations, Delusions, Paranoia, Loosening of associations - Suicidal Ideation Suicidal Ideation: No - Homicidal Ideation Homicidal Ideation: No Goal/Treatment Plan - Goal/Treatment Plan Need for Continued Stay: Severe depression anxiety, Severe functional impairment Progress Toward Problem(s) and Goals/Treatment Plan: Schizoaffective disorder bipolar type Alcohol use disorder severe Alcohol withdrawal Cannabis use disorder moderate -Psychotherapy -Supportive therapy, group therapy, individual therapy -Prolixin 5 mg BID -Atarax 25 mg PO Q6 prn -Trazodone 50 mg PO QHS prn -Keppra 500 mg BID -Ativan taper -Remeron 15 mg PO QHS -Encourage compliance with medications -monitor for withdrawal symptoms
[2018-05-17 06:53] VITALS: BP 121/78; PULSE 60; RESP 20; TEMP 97.5
[2018-05-17] MEDS ORDERED: Pneumococcal 23-Valent Vaccine IM ONE (10:00)
[2018-05-17] MEDS: Multiple Vitamins Tab PO SCH (10:04)
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
== END 2018-05-17 15:15 | disposition left against medical advice (07) | DRG 430 ==
LOC: C.ER 14:35 → C.5E 19:36
PROVIDERS: ADMIT Psychiatry & Neurology Psychiatry; ATTEND Psychiatry & Neurology Psychiatry
DX: F25.0 Schizoaffective disorder, bipolar type (principal); F10.230 Alcohol dependence with withdrawal, uncomplicated; I10 Essential (primary) hypertension; J45.909 Unspecified asthma, uncomplicated; Z86.711 Personal history of pulmonary embolism; F10.220 Alcohol dependence with intoxication, uncomplicated; F12.90 Cannabis use, unspecified, uncomplicated; Y90.0 Blood alcohol level of less than 20 mg/100 ml

== ENCOUNTER 2018-08-18 16:01 | Emergency (ER) | payer MEDICAID, OTHER ==
--- NOTE | 2018-08-18 17:12 | C.PDOC ---
History Of Present Illness 47 year old male is brought into the emergency department by ambulance under the influence of alcohol. 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 Time Seen by Provider: 08/18/18 16:09 Chief Complaint (Nursing): Substance Abuse History Per: Patient History/Exam Limitations: no limitations Onset/Duration Of Symptoms: Hrs Current Symptoms Are (Timing): Still Present Suicide/Self Injury Attempted (Context): None Modifying Factor(s): Alcohol Associated Symptoms: Other (alcohol intoxication). denies: Suicidal Thoughts, Suicidal Plan Additional History Per: EMS Past Medical History Reviewed: Historical Data, Nursing Documentation, Vital Signs Vital Signs: Last Vital Signs Temp 98.0 F 08/18/18 16:05 Pulse 105 H 08/18/18 16:05 Resp 20 08/18/18 16:05 BP 151/88 H 08/18/18 16:05 Pulse Ox 90 L 08/18/18 16:05 - Medical History PMH: Anxiety, Asthma, Bipolar Disorder, Depression, Fractures (skull had surgery), HTN (sometimes), Pulmonary Embolism, Schizophrenia, Seizures Denies: Diabetes, Hepatitis, HIV, Sexually Transmitted Disease Surgical History: No Surg Hx - [facility] Procedures DETOXIFICATION SERVICES FOR SUBSTANCE ABUSE TREATMENT (06/29/17) GROUP PSYCHOTHERAPY (03/11/16) INTRODUCTION OF SERUM/TOX/VACCINE INTO MUSCLE, PERC APPROACH (07/01/16) LINEAR REP LID LACER (03/07/15) MEDICATION MANAGEMENT (06/20/16) OTHER SKIN & SUBQ I D (03/16/15) TETANUS TOXOID ADMINIST (03/07/15) Family History: States: No Known Family Hx - Social History Hx Tobacco Use: No Hx Alcohol Use: Yes Hx Substance Use: No - Immunization History Hx Tetanus Toxoid Vaccination: No (around March 2016) Hx Influenza Vaccination: Yes (2017) Hx Pneumococcal Vaccination: Yes (2018) Review Of Systems Except As Marked, All Systems Reviewed And Found Negative. Constitutional: Negative for: Fever, Chills Gastrointestinal: Negative for: Nausea, Vomiting Neurological: Positive for: Other (intoxicated) Physical Exam - Physical Exam Appears: Non-toxic, No Acute Distress Skin: Warm, Dry Head: Atraumatic, Normacephalic Eye(s): bilateral: Normal Inspection Nose: Normal Oral Mucosa: Moist, Other (alcohol on breath) Neck: Trachea Midline, Supple Chest: Symmetrical, No Deformity Cardiovascular: Rhythm Regular, No Murmur Respiratory: Normal Breath Sounds, No Rales, No Rhonchi, No Wheezing Gastrointestinal/Abdominal: Normal Exam, Soft, No Tenderness, No Guarding, No Rebound Extremity: Normal ROM Neurological/Psych: Oriented x3, Normal Speech, Normal Cognition ED Course And Treatment O2 Sat by Pulse Oximetry: 95 (RA) Pulse Ox Interpretation: Normal Disposition Counseled Patient/Family Regarding: Diagnosis, Need For Followup - Disposition Referrals: [facility] [Outside] [facility] [Outside] Disposition: HOME/ ROUTINE Disposition Time: 18:58 Condition: STABLE Instructions: Alcohol Abuse and Alcoholism (DC) Forms: [employer] (Turkmen) - Clinical Impression Clinical Impression: Alcohol intoxication - Scribe Statement The provider has reviewed the documentation as recorded by the Scribe (Dc Naylor) Provider Attestation: All medical record entries made by the Scribe were at my direction and personally dictated by me. I have reviewed the chart and agree that the record accurately reflects my personal performance of the history, physical exam, medical decision making, and the department course for this patient. I have also personally directed, reviewed, and agree with the discharge instructions and disposition.
[2018-08-18 17:14] VITALS: O2SAT 95
[2018-08-18 19:00] VITALS: BP 138/96; PULSE 82; RESP 18; TEMP 97.7
== END 2018-08-18 19:11 | disposition home or self-care (01) ==
LOC: C.ER 16:01
DX: F10.129 Alcohol abuse with intoxication, unspecified (principal); F20.9 Schizophrenia, unspecified

== ENCOUNTER 2018-12-26 22:00 | Inpatient (IN) | payer MEDICAID, OTHER ==
--- NOTE | 2018-12-26 22:06 | C.PDOC ---
History Of Present Illness Patient presents to the ER after being found intoxicated in [facility] with empty bottle of vodka in his pocket. Denies any physical complaints at this time. Ambulates with crutches. Unable to tell where and why he has crutches.. A lot of the history obtained from previous visits(charts) Time Seen by Provider: 12/26/18 22:06 History Per: Patient, EMS History/Exam Limitations: no limitations Onset/Duration Of Symptoms: Hrs Current Symptoms Are (Timing): Still Present Suicide/Self Injury Attempted (Context): None Modifying Factor(s): Alcohol Severity: None Pain Scale Rating Of: 0 Involuntary Hold By: None Recent travel outside of the [place]: No Past Medical History Reviewed: Historical Data, Nursing Documentation, Vital Signs - Medical History PMH: Alzheimer's Disease, Anxiety, Asthma, Bipolar Disorder, Depression, Fractures, Schizophrenia, Seizures Denies: Diabetes, Hepatitis, HIV, HTN, Chronic Kidney Disease, Sexually Transmitted Disease - [facility] Procedures (11/18/18) DETOXIFICATION SERVICES FOR SUBSTANCE ABUSE TREATMENT (06/29/17) GROUP PSYCHOTHERAPY (11/18/18) INDIV PSYCHOTHERAPY FOR SUBSTANCE ABUSE, PSYCHOEDUCATION (11/18/18) INTRODUCTION OF SERUM/TOX/VACCINE INTO MUSCLE, PERC APPROACH (07/01/16) LINEAR REP LID LACER (03/07/15) MEDICATION MANAGEMENT (06/20/16) OTHER SKIN & SUBQ I D (03/16/15) TETANUS TOXOID ADMINIST (03/07/15) Family History: States: No Known Family Hx - Social History Hx Tobacco Use: No Hx Alcohol Use: Yes Hx Substance Use: No - Immunization History Hx Tetanus Toxoid Vaccination: No (around March 2016) Hx Influenza Vaccination: Yes (2017) Hx Pneumococcal Vaccination: Yes (2017) Review Of Systems Constitutional: Negative for: Fever, Chills Cardiovascular: Negative for: Chest Pain, Palpitations Respiratory: Negative for: Cough, Shortness of Breath Gastrointestinal: Negative for: Nausea, Vomiting Neurological: Negative for: Weakness, Numbness Physical Exam - Physical Exam Appears: Non-toxic, Other (ETOH on breath) Skin: Warm, Dry Head: No Tenderness, Other (Old surgical scar on skull) Oral Mucosa: Moist Neck: Supple Chest: Symmetrical, No Tenderness Cardiovascular: Rhythm Regular Respiratory: No Rales, No Rhonchi, No Wheezing Gastrointestinal/Abdominal: Soft, No Tenderness Back: Normal Inspection Extremity: Tenderness (milf left ankle), Other (Old bruise over left medial ankle, moves all toes) Extremity: Left: Painful To Bear Weight Pulses: Left Dorsalis Pedis: Normal, Right Dorsalis Pedis: Normal Neurological/Psych: Oriented x3 Gait: With Assistance (crutches) ED Course And Treatment - Laboratory Results Result Diagrams: 12/27/18 00:57 12/27/18 00:57 ECG: Interpreted By Me, Viewed By Me ECG Rhythm: Sinus Rhythm (105), 1st Degree HB, Nonspecific Changes O2 Sat by Pulse Oximetry: 97 Pulse Ox Interpretation: Normal - Radiology CXR: Interpreted by Me, Viewed By Me CXR Interpretation: Yes: Infiltrates (? rll infiltrate), Other (unchanged from 02/17/17). No: Fracture, Cardiomegaly, Pnemothorax Progress Note: 12:40 am spoke with podiatry resident. will come and see the patient. splint was placed bythe podiatry resident. moves all toes. good capila ry refill Disposition Discussed With : eKysha Horton Comment: accepted the pt on her service and took over the care at 1:54 AM Counseled Patient/Family Regarding: Studies Performed, Diagnosis, Need For Follo wup - Disposition Disposition: HOSPITALIZED Disposition Time: 22:06 Condition: FAIR - Clinical Impression Clinical Impression: Alcohol abuse with intoxication, Calcaneus fracture, left - Scribe Statement The provider has reviewed the documentation as recorded by the Scribgarett Penaloza All medical record entries made by the Scribe were at my direction and personally dictated by me. I have reviewed the chart and agree that the record accurately reflects my personal performance of the history, physical exam, medical decision making, and the department course for this patient. I have also personally directed, reviewed, and agree with the discharge instructions and disposition. Decision To Admit - Pt Status Changed To: Hospital Disposition Of: Inpatient - Admit Certification Admit to Inpatient:: After my assessment, the patient will require hospitalization for at least two midnights. This is because of the severity of symptoms shown, intensity of services needed, and/or the medical risk in this patient being treated as an outpatient. - InPatient: Physician Admission Certification: I certify that this patient requires 2 or more midnights of care for the following reason:: After my assessment, the patient will require hospitalization for at least two midnights. This is because of the severity of symptoms shown, intensity of services needed, and/or the medical risk in this patient being treated as an outpatient. - . Bed Request Type: Regular Admitting Physician: Keysha Horton Patient Diagnosis: Alcohol abuse with intoxication, Calcaneus fracture, left
[2018-12-27] MEDS: Sodium Chloride 0.9% 1,000 ML IV SCH ×3 (00:59→20:45)
[2018-12-27 01:01] LABS: BASO # 0.1 K/uL (0.0-0.2); BASO % 0.9 % (0.0-2.0); EOS # 0.1 K/uL (0.0-0.7); EOS % 0.5 % (0.0-4.0); HEMOGLOBIN 12.7 g/dL (12.0-18.0); LYMPH % 14.2 % (20.0-40.0); MEAN CORPUSCULAR HEMOGLOBIN 28.4 pg (27.0-31.0); MEAN CORPUSCULAR HGB CONC 32.8 g/dL (33.0-37.0); MEAN PLATELET VOLUME 7.3 fL (7.2-11.7); MONO # 1.3 K/uL (0.0-0.8); MONO % 9.4 % (0.0-10.0); NEUT # 10.6 K/uL (1.8-7.0); RBC 4.47 Mil/uL (4.40-5.90); RED CELL DISTRIBUTION WIDTH 16.4 % (11.5-14.5)
[2018-12-27 01:04] LABS: MEAN CELL VOLUME 86.4 fL (80.0-94.0); WHITE BLOOD COUNT 14.1 K/uL (4.8-10.8)
[2018-12-27 01:09] LABS: INR 1.2; PROTHROMBIN TIME 12.9 SECONDS (9.7-12.2)
[2018-12-27 01:15] LABS: ALB/GLOB RATIO 1.4 (1.0-2.1); ALBUMIN 4.7 g/dL (3.5-5.0); ALT/SGPT 26 U/L (21-72); AST/SGOT 36 U/L (17-59); BLOOD UREA NITROGEN 10 mg/dL (9-20); GFR NON-AFRICAN AMERICAN > 60
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
[2018-12-27 03:28] LABS: URINE BILIRUBIN NEGATIVE (NEGATIVE); URINE BLOOD NEGATIVE (NEGATIVE); URINE CLARITY Clear (Clear); URINE COLOR Straw (YELLOW); URINE GLUCOSE (UA) NORMAL (Normal); URINE LEUKOCYTE ESTERASE NEG Leu/uL (Negative); URINE PROTEIN NEGATIVE (NEGATIVE); URINE UROBILINOGEN NORMAL mg/dL (0.2-1.0)
[2018-12-27 03:41] LABS: BARBITURATES, UR NEGATIVE (NEGATIVE); OPIATES, UR NEGATIVE (NEGATIVE); PHENCYCLIDINE, UR NEGATIVE (NEGATIVE)
[2018-12-27 03:43] LABS: BENZODIAZEPINES, UR POSITIVE (NEGATIVE)
[2018-12-27 03:54] VITALS: RESP 20
[2018-12-27] MEDS ORDERED: Oxycodone/Acetaminophen 5/325 mg Tab PO PRN (07:17)
[2018-12-27] MEDS: Oxycodone/Acetaminophen 5/325 mg Tab PO PRN ×2 (08:29→16:47)
--- NOTE | 2018-12-27 09:32 | CT ---
CT left hindfoot HISTORY: Calcaneal fracture. COMPARISON: None available. Technique: Multiple contiguous axial images were performed through the left hindfoot without the use of intravenous contrast. Subsequently, sagittal and coronal reformatted images were obtained. Findings: Markedly comminuted fracture deformity of the calcaneus with multiple fracture sites seen at the anterior, mid, and posterior calcaneus. There is a suggestion of extension to the level of multiple joint spaces at its anterior, mid, and posterior aspects as well as including the middle subtalar joint space. The fracture sites involve the circumferential cortices. Mild widening of the posterior aspect of the tibiotalar joint space. Talar tilt with widening of the tibiotalar joint space laterally. Accessory ossicles adjacent to the cuboid bone. Moderate hallux valgus deformity with prominent degenerative changes at the metatarsus sesamoid joint spaces. Suggestion of chronic fracture deformities of the distal tibia with prominent cortical irregularity with productive change noted at the fracture site at the level of the distal tibia at its medial, lateral, and posterior cortices. Osteopenia seen within the distal tibia occurs in a somewhat vertically oriented appearance on series 601, image 128 as well as series 2 images 23 through 39. In addition, there appears to be prominent cortical productive change and hypertrophy at the posterior aspect of the tibiofibular articulation/syndesmosis. Circumferential reticulation and edema within the subcutaneous soft tissues. Impression: Markedly comminuted fracture deformity of the calcaneus as described above. Chronic fracture deformities of the distal tibia as described above. Additional findings as above. A preliminary report was generated at 12:19 a.m. on 12/27/[address] Niurka Goldsmith from [facility].
[2018-12-27] MEDS ORDERED: Multivitamin (MVI) 10 ML, Thiamine 100 MG, Folic Acid 1 MG in Sodium Chloride 0.9% 1,00... IV ONE (10:00)
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
[2018-12-27] MEDS: Multiple Vitamins Tab PO SCH (11:01)
--- NOTE | 2018-12-27 11:30 | RAD ---
Date of service: 12/27/2018 PROCEDURE: CHEST RADIOGRAPH, 1 VIEW HISTORY: SOB COMPARISON: 02/17/2017. FINDINGS: LUNGS: The lungs are well inflated there is bibasilar atelectasis. No focal consolidation. PLEURA: No pneumothorax or pleural effusion. CARDIOVASCULAR: The heart is normal in size. No aortic atherosclerotic calcifications present. OSSEOUS STRUCTURES: Within normal limits for the patient's age. VISUALIZED UPPER ABDOMEN: Normal. OTHER FINDINGS: None. IMPRESSION: No active pulmonary disease.
--- NOTE | 2018-12-27 14:04 | RAD ---
Date of service: 12/26/2018 PROCEDURE: Left Ankle Radiographs. HISTORY: ? fall COMPARISON: None available. FINDINGS: BONES: There is an acute comminuted mildly displaced impacted fracture in the calcaneus. There is an old fracture deformity in the distal diaphysis and distal epiphysis of tibia. There is no bone destruction. JOINTS: There is widening of the tibiotalar joint space. Talar dome intact. Moderate joint effusion. SOFT TISSUES: Soft tissue swelling present. OTHER FINDINGS: None. IMPRESSION: Acute mildly displaced comminuted impacted fracture in the calcaneus.
--- NOTE | 2018-12-27 14:08 | CT ---
Date of service: 12/26/2018 PROCEDURE: CT HEAD WITHOUT CONTRAST. HISTORY: Fall COMPARISON: Multiple prior CT scans, the most recent from 11/27/2017. TECHNIQUE: Axial computed tomography images were obtained through the head/brain without intravenous contrast. Radiation dose: Total exam DLP = 938.32 mGy-cm. This CT exam was performed using one or more of the following dose reduction techniques: Automated exposure control, adjustment of the mA and/or kV according to patient size, and/or use of iterative reconstruction technique. FINDINGS: HEMORRHAGE: No acute intracranial hemorrhage. BRAIN: Sanchez-white matter differentiation is preserved. There is redemonstration of 6 mm stable calcification in the right frontal subcortical white matter, a sequela of remote insult. There is no mass, mass effect or abnormal extra-axial fluid collection. There is no territorial infarction. The midline sagittal structures are normal. VENTRICLES: There is mild age-related global parenchymal volume loss and proportionate enlargement of the ventricles and cortical sulci. CALVARIUM: Status post right parietal and temporal craniectomy and duraplasty. PARANASAL SINUSES: Chronic pansinusitis, worse in the right maxillary sinus. MASTOID AIR CELLS: Predominantly clear. OTHER FINDINGS: There is a chronic deformity of the left nasal bone. IMPRESSION: No acute intracranial abnormality. No significant interval change. Additional comments as described above. A preliminary report was provided by [facility].
[2018-12-28] MEDS: Sodium Chloride 0.9% 1,000 ML IV SCH ×4 (01:04→17:43)
--- NOTE | 2018-12-28 09:27 | CP.PCM.PN ---
Subjective - Date & Time of Evaluation Date of Evaluation: 12/28/18 Time of Evaluation: 09:22 - Subjective Subjective: Podiatry Progress Note - Dr. Horton 48 year old male patient seen and evaluated this AM for left calcaneal fracture. Patient asleep on rounds. No acute events overnight per nursing. Posterior splint clean/dry/intact. Objective - Vital Signs/Intake and Output Vital Signs (last 24 hours): Temp Pulse Resp BP Pulse Ox 98.9 F 90 20 129/82 96 12/28/18 08:21 12/28/18 08:21 12/28/18 08:21 12/28/18 08:21 12/28/18 08:21 Intake and Output: 12/28/18 12/28/18 06:59 18:59 Intake Total 2420 Balance 2420 - Medications Medications: Current Medications Chlordiazepoxide (Librium) 25 mg PO Q6H PRN PRN Reason: Alcohol withdrawal Chlordiazepoxide (Librium) 25 mg PO Q6H [facility]; Taper Stop: 01/01/19 11:59 Last Admin: 12/28/18 05:34 Dose: 25 mg Clonidine HCl (Catapres) 0.1 mg PO Q4H PRN PRN Reason: Symptoms of alcohol withdrawl Folic Acid (Folic Acid) 1 mg PO DAILY [facility] Last Admin: 12/27/18 11:02 Dose: 1 mg Gabapentin (Neurontin) 300 mg PO BID [facility] Last Admin: 12/27/18 17:28 Dose: 300 mg Heparin Sodium (Porcine) (Heparin) 5,000 units SC Q12 [facility] Last Admin: 12/27/18 21:34 Dose: 5,000 units Sodium Chloride (Sodium Chloride 0.9%) 1,000 mls @ 100 mls/hr IV .Q10H [facility] Last Admin: 12/28/18 06:58 Dose: Not Given Ketorolac Tromethamine (Toradol) 30 mg IVP Q6 [facility] Last Admin: 12/28/18 07:16 Dose: 30 mg Levetiracetam (Keppra) 500 mg PO BID [facility] Last Admin: 12/27/18 21:38 Dose: 500 mg Lorazepam (Ativan) 1 mg IVP Q6H PRN PRN Reason: Anxiety or agitation Mirtazapine (Remeron) 15 mg PO HS [facility] Last Admin: 12/27/18 21:48 Dose: 15 mg Multivitamins (Hexavitamin) 1 tab PO DAILY [facility] Last Admin: 12/27/18 11:01 Dose: 1 tab Oxycodone/Acetaminophen (Percocet 5/325 Mg Tab) 1 tab PO Q4H PRN PRN Reason: Pain, moderate (4-7) Stop: 12/30/18 07:18 Last Admin: 12/27/18 16:47 Dose: 1 tab Oxycodone/Acetaminophen (Percocet 5/325 Mg Tab) 2 tab PO Q4H PRN PRN Reason: Pain, severe (8-10) Stop: 12/30/18 07:18 Risperidone (Risperdal Tab) 1 mg PO BID [facility] Last Admin: 12/27/18 21:38 Dose: 1 mg Thiamine HCl (Vitamin B1 Tab) 100 mg PO DAILY [facility] Last Admin: 12/27/18 11:01 Dose: 100 mg Trazodone HCl (Desyrel) 50 mg PO HS PRN PRN Reason: Insomnia - Labs Labs: 12/27/18 00:57 12/27/18 00:57 PT 12.9 SECONDS (9.7-12.2) H 12/27/18 00:57 INR 1.2 12/27/18 00:57 APTT 30 SECONDS (21-34) 12/27/18 00:57 - Constitutional Appears: Non-toxic, No Acute Distress - Extremities Exam Additional comments: LLE focused physical exam: Posterior splint clean/dry/intact with no strikethrough present Digital ROM present x5 No pain upon calf compression Neurovascular status intact to digits - Neurological Exam Neurological Exam: Alert, Awake, Oriented x3 - Psychiatric Exam Psychiatric exam: Normal Affect, Normal Mood Assessment and Plan - Assessment and Plan (Free Text) Assessment: 48M with left comminuted calcaneal fracture Plan: Patient seen and evaluated Discussed with attending, Dr. Clifford STEEN X-ray ordered - chronic/healed fracture of the distal tibia, calcaneal fracture appreciated CT LE - comminuted fracture of calc extending into multiple joint spaces including posterior TC and anterior TC as well as CC articulation Posterior splint LLE left intact; remain NWB LLE with crutch assistance Continue ice and elevation Awaiting medicine recommendations Awaiting psych recommendations to determine if patient able to undergo orthopedic surgery and subsequent treatment process Podiatry will continue to follow
[2018-12-28] MEDS: Multiple Vitamins Tab PO SCH (11:00)
--- NOTE | 2018-12-28 11:53 | PCM.PYCHPN ---
Psychiatric Progress Note - Psychiatric Progress Note Patient seen today, length of contact: 16 min Patient Chief Complaint: "I am tired" Problems Identified/Issues Discussed: The pt is seen, chart reviewed, case discussed with staff. Support and psychoeducation given Pt is improving slowly and needs more time, still has ongoing symptoms. Less disorganized than yesterday and not agitated Afetr care discussed with the resident No SEs from medications, risks discussed. After care discussed - needs JAYLAN followed by drug rehab likely Medication Change: Yes (detox changes daily) Medical Record Reviewed: Yes Mental Status Examination - Cognitive Function Orientation: Person, Place, Situation, Time Memory: Impaired Attention: Poor Concentration: Poor Association: WNL Fund of Knowledge: Poor - Mood Mood: Depressed, Anxious, Other (irate) - Affect Affect: Blunted - Speech Speech: Slurred - Formal Thought Process Formal Thought Process: Hallucinations (less), Paranoia (less) - Suicidal Ideation Suicidal Ideation: No - Homicidal Ideation Homicidal Ideation: No Goal/Treatment Plan - Goal/Treatment Plan Need for Continued Stay: Discharge may exacerbated symptoms, Severe functional impairment Progress Toward Problem(s) and Goals/Treatment Plan: Risperdal for psychotic sxs Remeron for depression Librium for alcohol detox As needed meds Keppra for sz d/o Support and psychoed
--- NOTE | 2018-12-28 14:09 | RAD ---
Date of service: 12/27/2018 PROCEDURE: Left Foot Radiographs. HISTORY: Left foot calcaneal fracture COMPARISON: CT scan without contrast from 12/26/2018 FINDINGS: BONES: Cast obscures fine bony details. There is redemonstration of an acute comminuted impacted intra-articular fracture in the calcaneus with 5 mm superior displacement. Bone alignment and mineralization are normal. JOINTS: There is moderate degenerative osteoarthrosis in the 1st MTP joint. The remaining joint spaces are preserved. SOFT TISSUES: There is diffuse soft tissue swelling in the foot. OTHER FINDINGS: None. IMPRESSION: Cast obscures fine bony details. Redemonstration of acute comminuted impacted intra-articular fracture in the calcaneus with 5 mm superior displacement.
--- NOTE | 2018-12-28 16:52 | CARD ---
APPROVED REPORT Date of service: 12/27/2018 EKG Measurement Heart [id number] <Conclusion> Sinus tachycardia Possible Left atrial enlargement Borderline ECG
[2018-12-29] MEDS: Sodium Chloride 0.9% 1,000 ML IV SCH ×3 (00:30→12:19)
[2018-12-29] MEDS: Multiple Vitamins Tab PO SCH (10:46)
--- NOTE | 2018-12-29 11:16 | CP.PCM.PN ---
Subjective - Date & Time of Evaluation Date of Evaluation: 12/29/18 Time of Evaluation: 11:11 - Subjective Subjective: Podiatry Progress Note - Dr. Horton 48 year old male patient seen and evaluated this AM for left calcaneal fracture. Patient asleep on rounds. No acute events overnight per nursing. Posterior splint clean/dry/intact. Objective - Vital Signs/Intake and Output Vital Signs (last 24 hours): Temp Pulse Resp BP Pulse Ox 98.4 F 95 H 20 117/65 97 12/29/18 00:00 12/29/18 00:00 12/29/18 00:00 12/29/18 00:00 12/29/18 00:00 Intake and Output: 12/29/18 12/29/18 06:59 18:59 Intake Total 1000 1000 Output Total 400 Balance 600 1000 - Medications Medications: Current Medications Chlordiazepoxide (Librium) 25 mg PO Q6H PRN PRN Reason: Alcohol withdrawal Chlordiazepoxide (Librium) 25 mg PO Q6H [facility]; Taper Stop: 01/01/19 11:59 Last Admin: 12/29/18 05:51 Dose: 25 mg Clonidine HCl (Catapres) 0.1 mg PO Q4H PRN PRN Reason: Symptoms of alcohol withdrawl Last Admin: 12/28/18 17:37 Dose: 0.1 mg Folic Acid (Folic Acid) 1 mg PO DAILY [facility] Last Admin: 12/29/18 10:47 Dose: 1 mg Gabapentin (Neurontin) 300 mg PO BID [facility] Last Admin: 12/29/18 10:47 Dose: 300 mg Heparin Sodium (Porcine) (Heparin) 5,000 units SC Q12 [facility] Last Admin: 12/29/18 10:47 Dose: 5,000 units Sodium Chloride (Sodium Chloride 0.9%) 1,000 mls @ 100 mls/hr IV .Q10H [facility] Last Admin: 12/29/18 02:45 Dose: Not Given Ketorolac Tromethamine (Toradol) 30 mg IVP Q6 [facility] Last Admin: 12/29/18 05:51 Dose: 30 mg Levetiracetam (Keppra) 500 mg PO BID [facility] Last Admin: 12/29/18 10:47 Dose: 500 mg Lorazepam (Ativan) 1 mg IVP Q6H PRN PRN Reason: Anxiety or agitation Last Admin: 12/29/18 01:30 Dose: 1 mg Mirtazapine (Remeron) 15 mg PO HS [facility] Last Admin: 12/28/18 21:41 Dose: Not Given Multivitamins (Hexavitamin) 1 tab PO DAILY [facility] Last Admin: 12/29/18 10:46 Dose: 1 tab Oxycodone/Acetaminophen (Percocet 5/325 Mg Tab) 1 tab PO Q4H PRN PRN Reason: Pain, moderate (4-7) Stop: 12/30/18 07:18 Last Admin: 12/27/18 16:47 Dose: 1 tab Oxycodone/Acetaminophen (Percocet 5/325 Mg Tab) 2 tab PO Q4H PRN PRN Reason: Pain, severe (8-10) Stop: 12/30/18 07:18 Risperidone (Risperdal Tab) 1 mg PO BID [facility] Last Admin: 12/29/18 10:47 Dose: 1 mg Thiamine HCl (Vitamin B1 Tab) 100 mg PO DAILY [facility] Last Admin: 12/29/18 10:47 Dose: 100 mg Trazodone HCl (Desyrel) 50 mg PO HS PRN PRN Reason: Insomnia - Labs Labs: 12/27/18 00:57 12/27/18 00:57 PT 12.9 SECONDS (9.7-12.2) H 12/27/18 00:57 INR 1.2 12/27/18 00:57 APTT 30 SECONDS (21-34) 12/27/18 00:57 - Constitutional Appears: Well, Non-toxic, No Acute Distress - Head Exam Head Exam: ATRAUMATIC - Extremities Exam Additional comments: LLE focused physical exam: Posterior splint clean/dry/intact with no strikethrough present Digital ROM present x5 No pain upon calf compression Neurovascular status intact to digits Assessment and Plan - Assessment and Plan (Free Text) Assessment: 48M with left comminuted calcaneal fracture Plan: Patient seen and evaluated Discussed with attending, Dr. Clifford STEEN X-ray ordered - chronic/healed fracture of the distal tibia, calcaneal fracture appreciated CT LE - comminuted fracture of calc extending into multiple joint spaces including posterior TC and anterior TC as well as CC articulation Posterior splint LLE left intact; remain NWB LLE with crutch assistance Continue ice and elevation Dr. Delaney recommends waiting to schedule surgery as patient is not a good candidate at this time and will be unable to follow up and will continue weight bearing. Awaiting psych recommendations to determine if patient able to undergo orthopedi c surgery and subsequent treatment process Podiatry will continue to follow
[2018-12-29 16:14] VITALS: BP 113/67; PULSE 78; TEMP 97.5; O2SAT 96
--- NOTE | 2018-12-29 16:18 | CP.PCM.PCO ---
Addendum Addendum: 12/29/18 16:14 Patient told nurse that he would like to leave against medical advice. Psychiatrist Dr. Chan contacted who stated that patient has capacity to make decision as long as he is oriented, not suicidal and understands the consequences of leaving against medical advice. Patient was not suicidal or homicidal, was oriented to person, place and times and expressed understanding that leaving against medical advice might result in worsening of his current condition including worsening pain in his left foot from his fracture and alcohol withdrawal including delirium tremens, seizures, falls and . Patient was advised that he may follow up with Podiatry in the clinic on Monday as well.
== END 2018-12-29 16:40 | disposition left against medical advice (07) | DRG 253 ==
LOC: C.ER 22:00 → C.3T 12-27 01:52
PROVIDERS: ADMIT Internal Medicine; ATTEND Internal Medicine
PROC: 2W3MX1Z Immobilization of Left Lower Extremity using Splint (ICD-10-PCS; principal; 2018-12-27)
DX: S92.002A Unspecified fracture of left calcaneus, initial encounter for closed fracture (principal); F10.220 Alcohol dependence with intoxication, uncomplicated; F25.0 Schizoaffective disorder, bipolar type; F10.230 Alcohol dependence with withdrawal, uncomplicated; Y90.7 Blood alcohol level of 200-239 mg/100 ml; F02.80 Dementia in other diseases classified elsewhere, unspecified severity, without behavioral disturbance, psychotic disturbance, mood disturbance, and anxiety; G30.9 Alzheimer's disease, unspecified; G40.909 Epilepsy, unspecified, not intractable, without status epilepticus; J45.909 Unspecified asthma, uncomplicated; F12.20 Cannabis dependence, uncomplicated; F17.210 Nicotine dependence, cigarettes, uncomplicated; H91.93 Unspecified hearing loss, bilateral; X58.XXXA Exposure to other specified factors, initial encounter; S82.892S Other fracture of left lower leg, sequela; Z91.81 History of falling; Z91.5 Personal history of self-harm; Z59.0 Homelessness

== ENCOUNTER 2018-12-29 21:00 | Emergency (ER) | payer OTHER ==
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
[2018-12-29 23:06] VITALS: BP 154/78; PULSE 92; RESP 20; TEMP 98
[2018-12-29 23:16] VITALS: O2SAT 96
== END 2018-12-29 23:06 | disposition home or self-care (01) ==
LOC: C.ER 21:00
DX: S92.002D Unspecified fracture of left calcaneus, subsequent encounter for fracture with routine healing (principal); X58.XXXD Exposure to other specified factors, subsequent encounter

== ENCOUNTER 2018-12-30 05:58 | Inpatient (IN) | payer OTHER ==
[2018-12-30 08:38] LABS: BASO # 0.1 K/uL (0.0-0.2); BASO % 0.7 % (0.0-2.0); EOS # 0.2 K/uL (0.0-0.7); EOS % 1.6 % (0.0-4.0); HEMOGLOBIN 12.1 g/dL (12.0-18.0); LYMPH # 1.5 K/uL (1.0-4.3); LYMPH % 13.2 % (20.0-40.0); MEAN CELL VOLUME 87.3 fL (80.0-94.0); MEAN CORPUSCULAR HEMOGLOBIN 28.8 pg (27.0-31.0); MEAN PLATELET VOLUME 7.3 fL (7.2-11.7); MONO # 0.8 K/uL (0.0-0.8); MONO % 7.6 % (0.0-10.0); NEUT # 8.5 K/uL (1.8-7.0); NEUT % 76.9 % (50.0-75.0); NRBC % 0.1 % (0.0-2.0); RBC 4.22 Mil/uL (4.40-5.90); RED CELL DISTRIBUTION WIDTH 16.2 % (11.5-14.5)
[2018-12-30 08:50] LABS: ALB/GLOB RATIO 1.3 (1.0-2.1); ALBUMIN 4.5 g/dL (3.5-5.0); ALT/SGPT 17 U/L (21-72); AST/SGOT 33 U/L (17-59); BLOOD UREA NITROGEN 9 mg/dL (9-20); CALCIUM 9.1 mg/dl (8.6-10.4); GFR NON-AFRICAN AMERICAN > 60
[2018-12-30 08:58] LABS: BARBITURATES, UR NEGATIVE (NEGATIVE); OPIATES, UR NEGATIVE (NEGATIVE); PHENCYCLIDINE, UR NEGATIVE (NEGATIVE)
[2018-12-30 09:21] LABS: BENZODIAZEPINES, UR POSITIVE (NEGATIVE)
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
--- NOTE | 2018-12-30 10:14 | CT ---
Date of service: 12/30/2018 PROCEDURE: CT left lower extremity HISTORY: foot fracture COMPARISON: Not available TECHNIQUE: 2.5 mm contiguous axial sections were acquired from the proximal tibia through the right hindfoot and midfoot. Sagittal and coronal images were reformatted from the axial scan. Total exam DLP: 271.86 mGy-cm. This CT exam was performed using 1 or more of the following dose reduction techniques: Automated exposure control, adjustment of the mA and/or kV according to patient size, and/or use of iterative reconstruction technique. FINDINGS: There is an extensively comminuted mildly displaced fracture of the calcaneus. There is no other acute fracture identified. There is old healed fracture of the distal tibial diaphysis with healing and mild resultant deformity. There is no lytic or blastic osseous lesion identified. There is no significant soft tissue abnormality appreciated. IMPRESSION: Extensively comminuted mildly displaced calcaneal fracture.
--- NOTE | 2018-12-30 10:49 | C.PDOC ---
History Of Present Illness 48 year old male presents to the ED for evaluation of persistent left foot pain. The patient was diagnosed a few days ago with a fracture, he was admitted to the hospital, and left against medical advice yesterday. He denies trauma to the left foot since he AMA yesterday. Offers no other medical complaints at this time. Time Seen by Provider: 12/30/18 07:07 Chief Complaint (Nursing): Medical Clearance History Per: Patient History/Exam Limitations: no limitations Onset/Duration Of Symptoms: Days Current Symptoms Are (Timing): Still Present Reports Recently: Hospitalized Recent travel outside of the [place]: No Past Medical History Reviewed: Historical Data, Nursing Documentation, Vital Signs Vital Signs: Last Vital Signs Temp 98.9 F 12/30/18 08:50 Pulse 93 H 12/30/18 08:50 Resp 18 12/30/18 08:50 BP 154/89 H 12/30/18 08:50 Pulse Ox 94 L 12/30/18 08:50 - Medical History PMH: Alzheimer's Disease, Anxiety, Asthma, Bipolar Disorder, Depression, Fractures, Pneumonia, Schizophrenia, Seizures Denies: Diabetes, Hepatitis, HIV, HTN, Chronic Kidney Disease, Sexually Transmitted Disease - [facility] Procedures (11/18/18) DETOXIFICATION SERVICES FOR SUBSTANCE ABUSE TREATMENT (06/29/17) GROUP PSYCHOTHERAPY (11/18/18) INDIV PSYCHOTHERAPY FOR SUBSTANCE ABUSE, PSYCHOEDUCATION (11/18/18) INTRODUCTION OF SERUM/TOX/VACCINE INTO MUSCLE, PERC APPROACH (07/01/16) LINEAR REP LID LACER (03/07/15) MEDICATION MANAGEMENT (06/20/16) OTHER SKIN & SUBQ I D (03/16/15) TETANUS TOXOID ADMINIST (03/07/15) Family History: States: Unknown Family Hx - Social History Hx Tobacco Use: No Hx Alcohol Use: Yes Hx Substance Use: Yes - Immunization History Hx Tetanus Toxoid Vaccination: No (around March 2016) Hx Influenza Vaccination: Yes (2017) Hx Pneumococcal Vaccination: Yes (2017) Review Of Systems Except As Marked, All Systems Reviewed And Found Negative. Constitutional: Negative for: Fever, Chills Musculoskeletal: Positive for: Foot Pain (left. ) Physical Exam - Physical Exam Appears: No Acute Distress Skin: Warm, Dry Head: Atraumatic, Normacephalic Eye(s): bilateral: Normal Inspection Oral Mucosa: Moist Neck: Normal ROM, Supple Chest: Symmetrical, No Deformity Cardiovascular: Rhythm Regular, No Murmur Respiratory: Normal Breath Sounds, No Rales, No Rhonchi, No Wheezing Gastrointestinal/Abdominal: Normal Exam, Soft, No Tenderness Extremity: Left: Other (left foot has othro glass splint.), Right: Atraumatic Pulses: Left Dorsalis Pedis: Normal, Right Dorsalis Pedis: Normal Neurological/Psych: Oriented x3, Normal Speech, Normal Cognition, Normal Sensation ED Course And Treatment - Laboratory Results Result Diagrams: 12/30/18 08:27 12/30/18 08:27 Lab Results: Total Bilirubin 0.9 mg/dL (0.2-1.3) 12/30/18 08:27 AST 33 U/L (17-59) 12/30/18 08:27 ALT 17 U/L (21-72) L D 12/30/18 08:27 Alkaline Phosphatase 84 U/L (38-126) 12/30/18 08:27 Total Protein 8.0 g/dL (6.3-8.3) 12/30/18 08:27 Albumin 4.5 g/dL (3.5-5.0) 12/30/18 08:27 Globulin 3.5 gm/dL (2.2-3.9) 12/30/18 08:27 Albumin/Globulin Ratio 1.3 (1.0-2.1) 12/30/18 08:27 O2 Sat by Pulse Oximetry: 94 Pulse Ox Interpretation: Abnormal - CT Scan/US CT Lower Ext. Other Rad Studies (CT/US): Read By Radiologist CT/US Interpretation: FINDINGS: There is an extensively comminuted mildly displaced fracture of the calcaneus. There is no other acute fracture identified. There is old healed fracture of the distal tibial diaphysis with healing and mild resultant deformity. There is no lytic or blastic osseous lesion identified. There is no significant soft tissue abnormality appreciated. IMPRESSION: Extensively comminuted mildly displaced calcaneal fracture. Medical Decision Making Medical Decision Making: Initial plan: -CT Lower Extremity Progress/Notes: Called podiatry, reviewed the case. Spoke with Dr. Ruff who agreed to admission under his service. Disposition - Disposition Disposition: HOSPITALIZED Disposition Time: 08:45 Condition: STABLE - Clinical Impression Clinical Impression: Alcohol abuse, Calcaneus fracture, left - Scribe Statement The provider has reviewed the documentation as recorded by the Scribe (Julia Fitzgerald) Provider Attestation: All medical record entries made by the Scribe were at my direction and personally dictated by me. I have reviewed the chart and agree that the record accurately reflects my personal performance of the history, physical exam, medical decision making, and the department course for this patient. I have also personally directed, reviewed, and agree with the discharge instructions and disposition.
[2018-12-30 11:10] VITALS: RESP 20
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
--- NOTE | 2018-12-31 09:52 | PCM.PSYCH ---
Initial Psychiatric Evaluation - Initial Psychiatric Evaluation Type of Admission: Voluntary Legal Status: Capacity Current Medications: Active Medications Generic Name Dose Route Start Last Admin Trade Name Freq PRN Reason Stop Dose Admin Chlordiazepoxide 25 mg 12/30/18 15:17 12/31/18 07:53 Librium PO 25 mg Q6H PRN Administration CIWA>10 Famotidine 20 mg 12/31/18 10:00 Pepcid PO DAILY [facility] Folic Acid 1 mg 12/31/18 10:00 Folic Acid PO DAILY [facility] Gabapentin 600 mg 12/30/18 14:00 12/30/18 17:32 Neurontin PO 600 mg TID CHLOE Administration Haloperidol 5 mg 12/30/18 15:16 Haldol PO Q4H PRN Agitation Heparin Sodium (Porcine) 5,000 units 12/30/18 14:00 12/31/18 06:14 Heparin SC Not Given Q8 CHLOE Levetiracetam 750 mg 12/30/18 18:00 12/30/18 17:32 Keppra PO 750 mg BID CHLOE Administration Lorazepam 1 mg 12/30/18 15:17 Ativan IVP Q6H PRN severe agitation Mirtazapine 30 mg 12/30/18 22:00 12/30/18 21:27 Remeron PO 30 mg HS CHLOE Administration Multivitamins/Minerals 1 tab 12/31/18 10:00 Therapeutic-M Tab PO DAILY [facility] Quetiapine Fumarate 100 mg 12/31/18 10:00 Seroquel PO DAILY [facility] Quetiapine Fumarate 400 mg 12/30/18 22:00 12/30/18 21:26 Seroquel PO 400 mg HS CHLOE Administration Thiamine HCl 100 mg 12/31/18 10:00 Vitamin B1 Tab PO DAILY [facility] Past Psychiatric History - Past Psychiatric History Pertinent Medical Hx (Current Medical&Sleep Prob, Allergies): Allergies Allergy/AdvReac Type Severity Reaction Status Date / Time No Known Allergies Allergy Verified 12/26/18 22:20 Cholecalciferol 400 Intl Units [Vitamin D 400 Intl Units Tab] 800 intlu PO DAILY tab 11/27/18 Famotidine [Pepcid] 20 mg PO DAILY #30 tab 11/27/18 Folic Acid 1 mg PO DAILY tab 11/27/18 Gabapentin 600 mg PO TID #90 tablet 11/27/18 Levetiracetam [Keppra] 750 mg PO BID #60 tablet 11/27/18 Multimineral/Multivitamin [Therapeutic-M Tab] 1 tab PO DAILY tab 11/27/18 QUEtiapine [SEROquel] 400 mg PO HS #60 tab 11/27/18 QUEtiapine [Seroquel] 100 mg PO DAILY #30 tab 11/27/18 Thiamine [Vitamin B1 Tab] 100 mg PO DAILY tab 11/27/18
[2018-12-31] MEDS: Multivitamin With Minerals Tab PO SCH (10:13)
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
[2018-12-31 11:45] LABS: BASO # 0.1 K/uL (0.0-0.2); BASO % 0.5 % (0.0-2.0); EOS # 0.2 K/uL (0.0-0.7); EOS % 1.5 % (0.0-4.0); HEMOGLOBIN 11.8 g/dL (12.0-18.0); LYMPH # 1.4 K/uL (1.0-4.3); LYMPH % 11.4 % (20.0-40.0); MEAN CELL VOLUME 88.2 fL (80.0-94.0); MEAN CORPUSCULAR HEMOGLOBIN 29.3 pg (27.0-31.0); MEAN CORPUSCULAR HGB CONC 33.2 g/dL (33.0-37.0); MEAN PLATELET VOLUME 7.7 fL (7.2-11.7); MONO # 0.9 K/uL (0.0-0.8); MONO % 6.8 % (0.0-10.0); NEUT % 79.8 % (50.0-75.0); RBC 4.02 Mil/uL (4.40-5.90); RED CELL DISTRIBUTION WIDTH 16.6 % (11.5-14.5); WHITE BLOOD COUNT 12.6 K/uL (4.8-10.8)
[2018-12-31 12:04] LABS: ALB/GLOB RATIO 1.3 (1.0-2.1); ALBUMIN 3.9 g/dL (3.5-5.0); ALT/SGPT 12 U/L (21-72); AST/SGOT 22 U/L (17-59); BLOOD UREA NITROGEN 11 mg/dL (9-20); GFR NON-AFRICAN AMERICAN > 60
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
[2018-12-31] MEDS: Pantoprazole 40 mg EC Tab PO SCH (20:04)
--- NOTE | 2019-01-01 06:25 | CP.PCM.PN ---
Subjective - Date & Time of Evaluation Date of Evaluation: 12/31/18 Time of Evaluation: 06:23 - Subjective Subjective: Patient is very noncompliant with medications. Most of the time he is feeling sleepy. Complaining of pain in the leg. He denies any chest pain or shortness of breath. Seen by air technician as well as seen by detox. On multiple medications for detox for alcoholism. Awaiting for the rehab placement, patient is very noncompliance, and unable to do any surgical procedure because of the noncompliance with his of nonweightbearing. Overall condition is stable Objective - Vital Signs/Intake and Output Vital Signs (last 24 hours): Temp Pulse Resp BP Pulse Ox 97.9 F 88 20 141/88 95 12/31/18 23:20 12/31/18 23:20 12/31/18 23:20 12/31/18 23:20 12/31/18 23:20 Intake and Output: 12/31/18 01/01/19 18:59 06:59 Output Total 1400 Balance -1400 - Medications Medications: Current Medications Benztropine Mesylate (Cogentin) 1 mg PO BID [facility] Last Admin: 12/31/18 18:33 Dose: Not Given Chlordiazepoxide (Librium) 25 mg PO Q6H PRN PRN Reason: CIWA>10 Last Admin: 12/31/18 07:53 Dose: 25 mg Famotidine (Pepcid) 20 mg PO DAILY [facility] Last Admin: 12/31/18 10:12 Dose: Not Given Folic Acid (Folic Acid) 1 mg PO DAILY [facility] Last Admin: 12/31/18 10:08 Dose: Not Given Gabapentin (Neurontin) 600 mg PO TID [facility] Last Admin: 12/31/18 18:33 Dose: Not Given Haloperidol (Haldol) 5 mg PO Q4H PRN PRN Reason: Agitation Heparin Sodium (Porcine) (Heparin) 5,000 units SC Q8 [facility] Last Admin: 01/01/19 05:48 Dose: Not Given Ibuprofen (Motrin Tab) 400 mg PO Q6 PRN PRN Reason: pain Last Admin: 12/31/18 20:04 Dose: 400 mg Influenza Virus Vaccine (Flucelvax Quad [id number] Syr) 60 mcg IM .ONCE ONE Stop: 01/01/19 14:01 Levetiracetam (Keppra) 750 mg PO BID [facility] Last Admin: 12/31/18 18:33 Dose: Not Given Lorazepam (Ativan) 1 mg IVP Q6H PRN PRN Reason: severe agitation Last Admin: 12/31/18 12:14 Dose: 1 mg Mirtazapine (Remeron) 30 mg PO HS [facility] Last Admin: 12/31/18 22:38 Dose: Not Given Multivitamins/Minerals (Therapeutic-M Tab) 1 tab PO DAILY [facility] Last Admin: 12/31/18 10:13 Dose: Not Given Pantoprazole Sodium (Protonix Ec Tab) 40 mg PO DAILY [facility] Last Admin: 12/31/18 20:04 Dose: 40 mg Risperidone (Risperdal Tab) 1 mg PO BID [facility] Last Admin: 12/31/18 18:33 Dose: Not Given Thiamine HCl (Vitamin B1 Tab) 100 mg PO DAILY [facility] Last Admin: 12/31/18 10:13 Dose: Not Given - Labs Labs: 12/31/18 11:29 12/31/18 11:29 APTT 29 SECONDS (21-34) 12/31/18 11:29
[2019-01-01] MEDS: Pantoprazole 40 mg EC Tab PO SCH (10:08)
[2019-01-01] MEDS: Multivitamin With Minerals Tab PO SCH (10:10)
--- NOTE | 2019-01-01 12:56 | PCM.PYCHPN ---
Psychiatric Progress Note - Psychiatric Progress Note Patient seen today, length of contact: 19 min Patient Chief Complaint: "I have so much pain, I may leave" Problems Identified/Issues Discussed: He is seen, case discussed and I also spoke to Dr. Ruff, chart reviewed Psychiatrically there is no acute events except for his usual irritability He c/o his pain not being taken care of. He says he is "not an opiate addict" (he abuses alcohol mostly) and that he should get percocet Staff say he didn't look like in pain and that he also refused everything but percocet (not given) He will likely have a surgery in 1-2 days Support given Medication Change: Yes (ultram added) Medical Record Reviewed: Yes Mental Status Examination - Cognitive Function Orientation: Person, Place, Situation Memory: Impaired Attention: Poor Concentration: Poor Association: Loose Fund of Knowledge: Poor - Mood Mood: Depressed, Anxious, Other (angry) - Affect Affect: Constricted - Speech Speech: Slurred - Formal Thought Process Formal Thought Process: Paranoia - Suicidal Ideation Suicidal Ideation: No - Homicidal Ideation Homicidal Ideation: No Goal/Treatment Plan - Goal/Treatment Plan Need for Continued Stay: Discharge may exacerbated symptoms, Other (medical clearance after surgery) Progress Toward Problem(s) and Goals/Treatment Plan: Risperdal for psychotic sxs Remeron for depression Librium for alcohol withdrawal, if any As needed meds Keppra for sz d/o Support and psychoed Refer to rehab after surgery and likely physical rehab I would given him stronger painkillers as he may be in real pain, and he will get them anyway myles (surgery) but keep them very short. If he AMAs he may hurt self inadvertently by skipping treatment 34 min
[2019-01-01] MEDS ORDERED: Tramadol 25 mg PO ONE (14:00)
[2019-01-01] MEDS ORDERED: Influenza Vaccine 60 mcg/0.5 mL SYR (4YR UP) IM ONE (14:00)
--- NOTE | 2019-01-01 17:08 | CP.PCM.PN ---
Subjective - Date & Time of Evaluation Date of Evaluation: 01/01/19 Time of Evaluation: 17:08 - Subjective Subjective: Podiatry Progress Note - Dr. Horton 48 year old male patient seen and evaluated at bedside for left calcaneal fracture. Courtney powell was called earlier this afternoon due to aggressive behavior and refusal to wear posterior splint. Patient refusing surgery at this time, states he no longer feels pain in left heel and is not agreeable to treatment plan following surgery. Patient admits to no pain in left heel to interviewer, however per nursing is requesting specifically Percocet frequently. Patient states he is able to walk on his left foot without issues and refuses to use the crutches that were previously dispensed to him. Patient also refusing to wear the posterior splint despite maximal education on immobilization LLE. Objective - Vital Signs/Intake and Output Vital Signs (last 24 hours): Temp Pulse Resp BP Pulse Ox 98 F 94 H 20 159/105 H 95 01/01/19 15:37 01/01/19 15:37 01/01/19 15:37 01/01/19 15:37 01/01/19 15:37 Intake and Output: 01/01/19 01/01/19 06:59 18:59 Output Total 700 Balance -700 - Medications Medications: Current Medications Benztropine Mesylate (Cogentin) 1 mg PO BID [facility] Last Admin: 01/01/19 10:08 Dose: 1 mg Chlordiazepoxide (Librium) 25 mg PO Q6H PRN PRN Reason: CIWA>10 Last Admin: 12/31/18 07:53 Dose: 25 mg Famotidine (Pepcid) 20 mg PO DAILY [facility] Last Admin: 01/01/19 10:07 Dose: 20 mg Folic Acid (Folic Acid) 1 mg PO DAILY [facility] Last Admin: 01/01/19 10:07 Dose: 1 mg Gabapentin (Neurontin) 600 mg PO TID [facility] Last Admin: 01/01/19 13:22 Dose: Not Given Haloperidol (Haldol) 5 mg PO Q4H PRN PRN Reason: Agitation Heparin Sodium (Porcine) (Heparin) 5,000 units SC Q8 [facility] Last Admin: 01/01/19 13:22 Dose: Not Given Ibuprofen (Motrin Tab) 400 mg PO Q6 PRN PRN Reason: pain Last Admin: 12/31/18 20:04 Dose: 400 mg Levetiracetam (Keppra) 750 mg PO BID [facility] Last Admin: 01/01/19 10:07 Dose: 750 mg Lorazepam (Ativan) 1 mg IVP Q6H PRN PRN Reason: severe agitation Last Admin: 12/31/18 12:14 Dose: 1 mg Mirtazapine (Remeron) 30 mg PO HS [facility] Last Admin: 12/31/18 22:38 Dose: Not Given Multivitamins/Minerals (Therapeutic-M Tab) 1 tab PO DAILY [facility] Last Admin: 01/01/19 10:10 Dose: 1 tab Pantoprazole Sodium (Protonix Ec Tab) 40 mg PO DAILY [facility] Last Admin: 01/01/19 10:08 Dose: 40 mg Risperidone (Risperdal Tab) 1 mg PO BID [facility] Last Admin: 01/01/19 10:14 Dose: Not Given Thiamine HCl (Vitamin B1 Tab) 100 mg PO DAILY [facility] Last Admin: 01/01/19 10:07 Dose: 100 mg - Labs Labs: 12/31/18 11:29 12/31/18 11:29 APTT 29 SECONDS (21-34) 12/31/18 11:29 - Constitutional Appears: Non-toxic, No Acute Distress - Extremities Exam Additional comments: LLE focused exam VASC: DP and PT pulses palpable 2/4; cap refill <3 seconds to all digits; temp gradient warm to warm; improvement in edema to the lower extremity, greatest at the rearfoot/ankle DERM: significant ecchymosis present about the medial aspect of the foot, the lateral aspect of the foot, and extending posteriorly at the ankle, positive mondor's sign present; no open lesions or wounds present, no signs of infection noted ORTHO: significant pain on palpation, unable to assess range of motion due to patient guarding, patient able to wiggle his digits NEURO: grossly intact - Neurological Exam Neurological Exam: Alert, Awake, Oriented x3 - Psychiatric Exam Psychiatric exam: Normal Affect, Normal Mood Assessment and Plan - Assessment and Plan (Free Text) Assessment: 48M with left comminuted fracture of the calcaneus sustained on 12/26/18 Plan: Patient seen and evaluated Discussed with attending, Dr. Horton Afebrile X-ray ordered (12/26/18)- chronic/healed fracture of the distal tibia, calcaneal fracture appreciated CT LE (12/30/18)- comminuted fracture of calc extending into multiple joint spaces including posterior TC and anterior TC as well as CC articulation Posterior splint discontinued per patients refusal - educated patient on the severity of his fracture pattern and importance of remaining NWB and immobilized in posterior splint however patient adamant about wearing clinical immunologist dressing so he can wear shoes to ambulate -Partial Arriaga dressing applied to patient; patient refused full Arriaga dressing because he wants to fit in shoes for ambulation. Discussed with patient he is to remain NWB LLE with assistance due to severity of fracture pattern however he continue to be NWB with weightbearing orders despite maximal education of complications Continue ice and elevation Per medicine, patient unable to undergo surgical procedure because of noncompliance Dispo: SW unable to assess patient for JAYLAN planning as patient is confused and unable to provide information Stable for dc per podiatry - no further plans for surgical intervention at this time as patient refusing Podiatry will continue to follow
[2019-01-02] MEDS: Pantoprazole 40 mg EC Tab PO SCH (09:13)
[2019-01-02] MEDS: Multivitamin With Minerals Tab PO SCH (09:13)
[2019-01-02] MEDS ORDERED: Tramadol 25 mg PO PRN (10:19)
--- NOTE | 2019-01-02 10:35 | CP.PCM.PN ---
Subjective - Date & Time of Evaluation Date of Evaluation: 01/02/19 Time of Evaluation: 10:35 - Subjective Subjective: Podiatry Progress Note - Dr. Clifford GilesM seen and evaluated this AM for left calcaneal fracture. Friend present at bedside. Patient still refusing surgery at this time as he is not agreeable to treatment plan/recovery process following the procedure. Patient states he is unable to walk on his left foot however please note during yesterday's interview patient stated he was able to ambulate on his left foot in a sneaker without issues. Patient still refusing to wear the posterior splint despite maximal education on immobilization and nonweightbearing to left lower extremity. Patient again refusing completion of Arriaga dressing for swelling controll. Patient also still refusing to utilize crutches that were previously dispensed to him. Denies n/v/f/d/c/sob/king/cp. Objective - Vital Signs/Intake and Output Vital Signs (last 24 hours): Temp Pulse Resp BP Pulse Ox 97.3 F L 79 20 137/87 96 01/02/19 07:00 01/02/19 07:00 01/02/19 07:00 01/02/19 07:00 01/02/19 07:00 - Medications Medications: Current Medications Benztropine Mesylate (Cogentin) 1 mg PO BID [facility] Last Admin: 01/02/19 09:14 Dose: 1 mg Chlordiazepoxide (Librium) 25 mg PO Q6H PRN PRN Reason: CIWA>10 Last Admin: 12/31/18 07:53 Dose: 25 mg Famotidine (Pepcid) 20 mg PO DAILY [facility] Last Admin: 01/02/19 09:14 Dose: 20 mg Folic Acid (Folic Acid) 1 mg PO DAILY [facility] Last Admin: 01/02/19 09:13 Dose: 1 mg Gabapentin (Neurontin) 600 mg PO TID [facility] Last Admin: 01/02/19 09:13 Dose: 600 mg Haloperidol (Haldol) 5 mg PO Q4H PRN PRN Reason: Agitation Heparin Sodium (Porcine) (Heparin) 5,000 units SC Q8 [facility] Last Admin: 01/02/19 05:26 Dose: Not Given Ibuprofen (Motrin Tab) 400 mg PO Q6 PRN PRN Reason: pain Last Admin: 01/02/19 07:45 Dose: 400 mg Levetiracetam (Keppra) 750 mg PO BID [facility] Last Admin: 01/02/19 09:14 Dose: 750 mg Lorazepam (Ativan) 1 mg IVP Q6H PRN PRN Reason: severe agitation Last Admin: 12/31/18 12:14 Dose: 1 mg Mirtazapine (Remeron) 30 mg PO HS [facility] Last Admin: 01/01/19 21:05 Dose: Not Given Multivitamins/Minerals (Therapeutic-M Tab) 1 tab PO DAILY [facility] Last Admin: 01/02/19 09:13 Dose: 1 tab Pantoprazole Sodium (Protonix Ec Tab) 40 mg PO DAILY [facility] Last Admin: 01/02/19 09:13 Dose: 40 mg Risperidone (Risperdal Tab) 1 mg PO BID [facility] Last Admin: 01/02/19 09:13 Dose: 1 mg Thiamine HCl (Vitamin B1 Tab) 100 mg PO DAILY [facility] Last Admin: 01/02/19 09:13 Dose: 100 mg Tramadol HCl (Ultram) 25 mg PO TID PRN PRN Reason: Pain, severe (8-10) - Labs Labs: 12/31/18 11:29 12/31/18 11:29 APTT 29 SECONDS (21-34) 12/31/18 11:29 - Constitutional Appears: Non-toxic, No Acute Distress - Extremities Exam Additional comments: Arriaga dressing to LLE clean/dry/intact with no strikethrough present Neurovascular status intact to digits Digital ROM present x5 - Neurological Exam Neurological Exam: Alert, Awake, Oriented x3 - Psychiatric Exam Psychiatric exam: Normal Affect, Normal Mood Assessment and Plan - Assessment and Plan (Free Text) Assessment: 48M with left comminuted fracture of the calcaneus sustained on 12/26/18 Plan: Patient seen and evaluated Discussed with attending, Dr. Clifford STEEN X-ray ordered (12/26/18)- chronic/healed fracture of the distal tibia, calcaneal fracture appreciated CT LE (12/30/18)- comminuted fracture of calc extending into multiple joint spaces including posterior TC and anterior TC as well as CC articulation Posterior splint discontinued per patients refusal - educated patient on the severity of his fracture pattern and importance of remaining NWB and immobilized in posterior splint however patient adamant about wearing department operations manager dressing so he can wear shoes to ambulate -Partial Arriaga dressing left intact; patient again refused full Arriaga dressing because he wants to fit in shoes for ambulation. Discussed with patient he is to remain NWB LLE with assistance due to severity of fracture pattern however he continues to be non-compliant with NWB orders despite maximal education of complications/further injury to calcaneus Continue ice and elevation Per medicine, patient unable to undergo surgical procedure and subsequent post- operative treatment plan Stable for dc per podiatry - no further plans for surgical intervention at this time as patient refusing Patient to follow up in the podiatry clinic within 1 week of discharge Podiatry will continue to follow
[2019-01-02 16:32] VITALS: BP 154/99; PULSE 90; TEMP 97.8; O2SAT 97
== END 2019-01-02 18:30 | disposition left against medical advice (07) | DRG 253 ==
LOC: C.ER 05:58 → C.9E 08:52 → C.6T 09:18 → C.5S 12-31 14:08 → C.6T 12-31 14:13
PROVIDERS: ADMIT Internal Medicine; ATTEND Internal Medicine
DX: S92.002A Unspecified fracture of left calcaneus, initial encounter for closed fracture (principal); F25.1 Schizoaffective disorder, depressive type; F10.20 Alcohol dependence, uncomplicated; G30.9 Alzheimer's disease, unspecified; F02.80 Dementia in other diseases classified elsewhere, unspecified severity, without behavioral disturbance, psychotic disturbance, mood disturbance, and anxiety; F12.20 Cannabis dependence, uncomplicated; F31.9 Bipolar disorder, unspecified; J45.909 Unspecified asthma, uncomplicated; G40.909 Epilepsy, unspecified, not intractable, without status epilepticus; K70.9 Alcoholic liver disease, unspecified; Z59.0 Homelessness; Z87.01 Personal history of pneumonia (recurrent); F17.210 Nicotine dependence, cigarettes, uncomplicated; Z91.19 Patient's noncompliance with other medical treatment and regimen; Z91.5 Personal history of self-harm; X58.XXXA Exposure to other specified factors, initial encounter; Z62.810 Personal history of physical and sexual abuse in childhood; Y90.1 Blood alcohol level of 20-39 mg/100 ml; F41.9 Anxiety disorder, unspecified

== ENCOUNTER → 2019-03-18 | Day surgery (SDC) | payer MEDICAID, OTHER ==
[~2019-03-18] MED LIST: Bupivacaine HCl 0.5% PF (10 ml) Inj ONE; HYDROmorphone 0.5 mg/0.5 ml ISec IVP PRN; Lactated Ringer's 1,000 ML IV SCH; Lidocaine 2% MPF (5 ml) Inj ONE; Midazolam 2 MG/2 ML VIAL ONE; Oxycodone/Acetaminophen 5/325 mg Tab PO PRN; Propofol 10 mg/ml Inj (20 ML) ONE; ceFAZolin 1 gm in NS 2 GM/200 ML BAG IVPB ONE
[2019-03-18 06:12] VITALS: BMI 29.5
--- NOTE | 2019-03-18 10:02 | PCM.SURG1 ---
Surgeon's Initial Post Op Note - Surgeon's Notes Surgeon: Dr. Keysha Horton. DPM Marketing Administrator: Dr. Mahesh Mckeon. DPM/PGY1. Dr. Radha Quinn. DPM/PGY2 Type of Anesthesia: IV Sedation, Local Anesthesia Administered By: Dr. Sommer Pre-Operative Diagnosis: Left non-healing wound on top of OM of the calcaneous. Operative Findings: See Dictation. Injectables: 19 cc of 1:1 mixture of lidocaine plain 1% and marcaine plain 0.5% the injection of 10 cc of 0.5% marcaine plain for post operative analgesia. Materials: 4-0 Monocryl suture, 2"X2" integra bilayer graft, Ericept. Post-Operative Diagnosis: Left non-healing wound on top of OM of the calcaneous. Operation Performed: Debridement of Left non-healing wound on top of OM of the calcaneous. Bone biopsy from theleft calcaneous. Application of integra bilayer graft. Specimen/Specimens Removed: Bone biopsy from the left calcaneous. Estimated Blood Loss: EBL {In ML}: 10 Blood Products Given: N/A Drains Used: No Drains Post-Op Condition: Good Date of Surgery/Procedure: 03/18/19 Time of Surgery/Procedure: 10:03
[2019-03-18 12:05] VITALS: RESP 18; O2SAT 97
[2019-03-18 13:29] VITALS: BP 151/95; PULSE 75; TEMP 97.6
--- NOTE | 2019-03-18 21:51 | OP ---
PROCEDURE DATE: 03/18/2019 SURGEON: Keysha Horton DPM ASSISTANTS: Mahesh Mckeon DPM, PGY-1 and Radha Porras DPM, PGY-2 ANESTHESIOLOGIST: Dr. Sommer. ANESTHESIA: IV sedation with local anesthesia. 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 PROCEDURES: 1. Debridement of left nonhealing wound with obtaining a bone biopsy from the left calcaneus. 2. Application of the Integra Bilayer graft. INDICATIONS: The patient is a 48-year-old male patient with the above diagnosis. The patient has exhausted all the conservative treatments at this time and now requires surgical intervention. The patient signed the consent after careful explanation of risks, benefits, complications, and alternatives for the surgical procedure. No guarantees were given nor implied. N.p.o. status was confirmed prior to taking the patient to the OR. PREPARATION: The patient was brought to the operating room and placed on the operating room table in a supine position. Time-out was performed for identification of the correct patient and procedure. After induction of IV sedation, an injection of total of 19 mL of 1:1 mixture of lidocaine plain 1% and Marcaine plain of 0.5% in a left ankle block fashion. After confirming the local anesthesia status, the left lower extremity was then prepped and draped in a normal sterile manner and the procedure began. No tourniquet was used during the procedure. DESCRIPTION OF PROCEDURE: PROCEDURE #1: Debridement of left foot nonhealing wound with obtaining a bone biopsy: Attention was then directed to the lateral aspect of the left foot and ankle at which there was noted a wound measuring 5 cm x 3 cm x 0.8 cm with fibrous base and exposed bone and hyperkeratotic edges. Then using the rongeur, the exposed bone was debrided, and a biopsy was obtained from the debrided calcaneal bone. The bone biopsy was then passed through the field and sent to Pathology. Then using a Cheek's rasp, The bone was rasped down to smoothness. Using a curette, the soft tissue at the edge of the wound was debrided down to satisfaction. Then using Irrisept irrigation was done using copious amount of the solution. PROCEDURE #2: Application of Integra Bilayer: Integra Bilayer graft measuring 2 x 2 inches was then prepped in basin using normal sterile saline solution. After the graft was prepared, the graft was placed over the ulcer site. The graft adhered to the base of the ulceration, and it was noted that it was fully covering the site. The graft was then secured to the wound edges. Using #4-0 Monocryl sutures in a simple suture fashion. Then, the ulcer edges was cleaned using saline and Betadine, and then application of surgical ROSA wound VAC was done. The VAC was secured completely over the graft site. Then, dressing of the surgical sites was done using 4x4 gauze, ABD pads, Kerlix and Sung bandage. Well padded posterior splint was applied. POSTOPERATIVE CONDITION: The patient tolerated the anesthesia and procedure well and was escorted to the recovery room with vital signs stable and neurovascular status intact to the left lower extremity. The patient is to be non-weightbearing to the left lower extremity, and the patient will follow up with Dr. Horton at the clinic within one week of the surgery upon discharge to subacute rehab. MAHESH MCKEON DPM/[id number] Keysha Horton DPM JAMSHID
== END | disposition home or self-care (01) ==
LOC: C.SDS 05:42
PROVIDERS: ATTEND Podiatrist Foot & Ankle Surgery
DX: M86.9 Osteomyelitis, unspecified (principal); L97.429 Non-pressure chronic ulcer of left heel and midfoot with unspecified severity
CPT/HCPCS: 15004; 15275; 20240; 87070; J0690; J2250; J2704; J3010